=== PATIENT | male | born 1980 | race Two or more races ===

== ENCOUNTER 2020-10-21 03:55 | Emergency (ER) | payer SELFPAY ==
[2020-10-21] MEDS ORDERED: Albuterol 8 GM Inhaler INH ONE (04:15)
--- NOTE | 2020-10-21 04:15 | EDM.PDOC ---
ED HPI GENERAL MEDICAL PROBLEM - General Chief Complaint: Respiratory Problem Stated Complaint: COVID POSITIVE- CAN'T BREATHE Time Seen by Provider: 10/21/20 04:15 - History of Present Illness INITIAL COMMENTS - FREE TEXT/NARRATIVE: History of present illness: [] Patient has begun to have cough and difficulty breathing with discomfort when he tries to breathe starting 10 days ago. Starting on the he is taking clarithromycin, benzonatate and budesonide. Girlfriend tested positive for COVID-19 3 weeks ago. She is over her symptoms now. Feels short of breath and cannot tolerate activity. He is coughing deal. Review of systems: As per history of present illness and below otherwise all systems reviewed and negative. Past medical history: As per history of present illness and as reviewed below otherwise noncont ributory. Surgical history: As per history of present illness and as reviewed below otherwise noncontributory. Social history: No reported history of drug or alcohol abuse. Family history: As per history of present illness and as reviewed below otherwise noncontributory. Physical exam: Constitutional - well developed, well-nourished and in no acute distress HEENT - normocephalic, no evidence of trauma - external nose and mouth normal - no mass in neck and no JVD - mucosae moist EYES - full EOM, PERRL, no icterus - no evidence of inflammation, injection, or drainage Respiratory - no respiratory distress, equal bilateral expansion, lungs diminished to auscultation and otherwise no abnormal lung sounds Cardiovascular - Regular Rhythm with S1 and S2 appreciated and no murmur, gallop or rub. GI - abdomen soft without distension or organomegaly - normal bowel sounds - no guard or rebound Musculoskeletal no gross deformity of long bones or joints - no tenderness, swelling or edema Neurologic - Alert and oriented times four - CN II-XII grossly intact - motor sensory and coordination symmetrically normal Psychiatric - appropriate mood and affect with normal thought content Hematologic - No petechiae or purpura - mucosa appropriate color and sclera not pale - normal nail bed color and refill Integument - no rash or evidence of trauma - normal turgor Diagnostics: [] Therapeutics: [] Impression: [] Plan: [] Definitive disposition and diagnosis as appropriate pending reevaluation and review of above. - Related Data Allergies Allergy/AdvReac Type Severity Reaction Status Date / Time No Known Allergies Allergy Verified 10/21/20 04:09 Home Meds: Home Meds Benzonatate 200 mg PO DAILY 10/21/20 [History] Budesonide [Pulmicort] 1 ampule INH Q6HR PRN 10/21/20 [History] Clarithromycin 500 mg PO BID 10/21/20 [History] Ondansetron [Zofran ODT] 4 mg PO Q6H PRN #12 tab.dis 10/21/20 [Rx] ED ROS GENERAL - Review of Systems Review Of Systems: Comprehensive ROS is negative, except as noted in HPI. ED EXAM, GENERAL - Physical Exam Exam: See Below Free Text/Narrative:: My physical exam is in the HPI Course - Vital Signs Text/Narrative:: Patient is adequate sat. He feels somewhat better after albuterol inhalation. He still feels nauseated. Zofran ordered. Last Recorded V/S: Last Vital Signs Temp 37.2 C 10/21/20 04:12 Pulse 92 10/21/20 04:54 Resp 18 10/21/20 04:54 BP 110/79 10/21/20 04:54 Pulse Ox 97 10/21/20 04:54 - Orders/Labs/Meds Orders: Active Orders 24 hr Category Date Time Status RT Post Treatment Assessment [RC] Click to Edit Care 10/21/20 04:19 Active RT Pre-Treatment Assessment [RC] Click to Edit Care 10/21/20 04:19 Active Ondansetron [Zofran ODT] Med 10/21/20 05:20 Once 4 mg PO ONETIME ONE Medication Orders Ondansetron HCl (Ondansetron 4 Mg Tab.Dis) 4 mg PO ONETIME ONE Stop: 10/21/20 05:21 Labs: Laboratory Tests 10/21/20 Range/Units 04:20 SARS-CoV-2 RNA (SOLITARIO) POSITIVE H (NEGATIVE) Meds: Medications Generic Name Dose Route Start Last Admin Trade Name Freq PRN Reason Stop Dose Admin Ondansetron HCl 4 mg 10/21/20 05:20 Ondansetron 4 Mg Tab.Dis PO 10/21/20 05:21 ONETIME ONE Discontinued Medications Generic Name Dose Route Start Last Admin Trade Name Freq PRN Reason Stop Dose Admin Albuterol Confirm 10/21/20 04:15 03/19/21 04:19 Albuterol 8 Gm Inhaler Administered 10/21/20 04:16 Not Given Dose 8 gm INH .STK-MED ONE Albuterol 8 gm 10/21/20 04:18 10/21/20 04:23 Albuterol Hfa 18 Gm Inhaler INH 10/21/20 04:19 2 inhaler NOW STA Administration Departure - Departure Time of Disposition: 05:22 Disposition: Home, Self-Care 01 Condition: Good Clinical Impression: Pneumonia due to COVID-19 virus - Discharge Information Prescriptions: Ondansetron [Zofran ODT] 4 mg PO Q6H PRN #12 tab.dis PRN Reason: Nausea/Vomiting Instructions: COVID-19 Referrals: PCP,None [Primary Care Provider] - Forms: ED Department Discharge Additional Instructions: Stop clarithromycin while you are taking the nausea medicine because the combined 2 can cause the dangers situation with electrical conduction in your heart. [facility] - Primary Care [address] [place] [address] [place] [address] The following information is given to patients seen in the emergency department who are being discharged to home. This information is to outline your options for follow-up care. We provide all patients seen in our emergency department with a follow-up referral. The need for follow-up, as well as the timing and circumstances, are variable depending upon the specifics of your emergency department visit. If you don't have a primary care physician on staff, we will provide you with a referral. We always advise you to contact your personal physician following an emergency department visit to inform them of the circumstance of the visit and for follow-up with them and/or the need for any referrals to a consulting specialist. The emergency department will also refer you to a specialist when appropriate. T his referral assures that you have the opportunity for follow-up care with a specialist. All of these measure are taken in an effort to provide you with optimal care, which includes your follow-up. Under all circumstances we always encourage you to contact your private physician who remains a resource for coordinating your care. When calling for follow-up care, please make the office aware that this follow-up is from your recent emergency room visit. If for any reason you are refused follow-up, please contact the [facility] Emergency Department at and asked to speak to the emergency department charge nurse. Sepsis Event Note (ED) - Focused Exam Vital Signs: Vital Signs Temp Pulse Resp BP Pulse Ox 10/21/20 04:54 92 18 110/79 97 10/21/20 04:12 37.2 C 103 H 18 114/74 97 - My Orders Last 24 Hours: My Active Orders 10/21/20 04:19 RT Post Treatment Assessment [RC] Click to Edit RT Pre-Treatment Assessment [RC] Click to Edit 10/21/20 05:20 Ondansetron [Zofran ODT] 4 mg PO ONETIME ONE - Assessment/Plan Last 24 Hours: My Active Orders 10/21/20 04:19 RT Post Treatment Assessment [RC] Click to Edit RT Pre-Treatment Assessment [RC] Click to Edit 10/21/20 05:20 Ondansetron [Zofran ODT] 4 mg PO ONETIME ONE
[2020-10-21] MEDS ORDERED: Albuterol HFA 18 Gm Inhaler INH STA (04:18)
--- NOTE | 2020-10-21 05:17 | CR ---
Indication: Cough and dyspnea Technique: Chest 1 view Comparison: None Findings/Impression: Cardiovascular and mediastinum: Heart size and vasculature are normal in caliber and appearance. Mediastinum is within normal limits. Lungs and pleural space: An expiratory study. Subtle, ill-defined interstitial opacities in the lower lungs and right midline, partially related to subsegmental atelectasis, however suggestive of interstitial infiltrates. Central basilar bronchial wall thickening noted. Correlate clinically, including for viral pneumonia and bronchitis. No pleural effusions. No pneumothorax seen. Bones and soft tissues: No significant findings. Dictated by Poncho Escobedo MD @ Oct 21 2020 5:12AM Signed by Dr. Poncho Escobedo @ Oct 21 2020 5:15AM
[2020-10-21] MEDS ORDERED: Ondansetron 4 MG Tab.DIS PO ONE (05:20)
== END 2020-10-21 05:46 | disposition home or self-care (01) ==
LOC: MW.ED 03:55
DX: U07.1 COVID-19 (principal); J12.82 Pneumonia due to coronavirus disease 2019
CPT/HCPCS: 71045; 87635; 99285; A9270; 99283; J3535-GY; U0002

== ENCOUNTER 2020-10-23 05:46 | Inpatient (IN) | payer SELFPAY ==
[2020-10-23] MEDS ORDERED: Sodium Chloride 0.9% 10 ML Syringe FLUSH PRN (06:16)
[2020-10-23] MEDS ORDERED: REMDESIVIR 200 MG in Sodium Chloride 0.9% 250 ML IV ONE (06:18)
--- NOTE | 2020-10-23 06:23 | EDM.PDOC ---
ED HPI GENERAL MEDICAL PROBLEM - General Chief Complaint: Respiratory Problem Stated Complaint: SHORTNESS OF BREATH, COVID POSITIVE Time Seen by Provider: 10/23/20 05:55 - History of Present Illness INITIAL COMMENTS - FREE TEXT/NARRATIVE: History of present illness: [] Patient is in reasonably good health. 12 days ago he began to have trouble breathing. Days ago he was started on benzonatate budesonide + and clarithromycin. 2 days ago he came here and was seen and found to be COVID-19 positive. He was placed on an inhaler with albuterol and an extension chamber as well as oral steroids. He was discharged in satisfactory condition but returned with more shortness of breath. Since he was tested positive for Covid he has been trying to lay prone and that does not seem to help. His inhaler does not seem to help. The health department nurse called him and told him he was eligible for remdesivir. He presents now short of breath and requesting assistance. Review of systems: As per history of present illness and below otherwise all systems reviewed and negative. Past medical history: As per history of present illness and as reviewed below otherwise noncontributory. Surgical history: As per history of present illness and as reviewed below otherwise noncontributory. Social history: No reported history of drug or alcohol abuse. Family history: As per history of present illness and as reviewed below otherwise noncontributory. Physical exam: Constitutional - well developed, well-nourished and in no acute distress HEENT - normocephalic, no evidence of trauma - external nose and mouth normal - no mass in neck and no JVD - mucosae moist EYES - full EOM, PERRL, no icterus - no evidence of inflammation, injection, or drainage Respiratory -moderate respiratory distress, equal bilateral expansion, lungs clear to auscultation and no abnormal lung sounds in oxygen saturation 85% which corrects between 90 and 93 on 10 L of oxygen. Cardiovascular - Regular Rhythm with S1 and S2 appreciated and no murmur, gallop or rub. GI - abdomen soft without distension or organomegaly - normal bowel sounds - no guard or rebound Musculoskeletal no gross deformity of long bones or joints - no tenderness, s welling or edema Neurologic - Alert and oriented times four - CN II-XII grossly intact - motor sensory and coordination symmetrically normal Psychiatric - appropriate mood and affect with normal thought content Hematologic - No petechiae or purpura - mucosa appropriate color and sclera not pale - normal nail bed color and refill Integument - no rash or evidence of trauma - normal turgor Diagnostics: [] Therapeutics: [] Impression: [] Plan: [] Definitive disposition and diagnosis as appropriate pending reevaluation and review of above. Bilateral Pain Score (Numeric/FACES): 10 - Related Data Allergies Allergy/AdvReac Type Severity Reaction Status Date / Time No Known Allergies Allergy Verified 10/23/20 05:52 Home Meds: Home Meds Benzonatate 200 mg PO DAILY 10/21/20 [History] Budesonide [Pulmicort] 1 ampule INH Q6HR PRN 10/21/20 [History] Ondansetron [Zofran ODT] 4 mg PO Q6H PRN #12 tab.dis 10/21/20 [Rx] Past Medical History - Past Health History Medical/Surgical History: Denies Medical/Surgical History Social & Family History - Family History Family Medical History: No Pertinent Family History - Caffeine Use Caffeine Use: Reports: Coffee - Recreational Drug Use Recreational Drug Use: No ED ROS GENERAL - Review of Systems Review Of Systems: Comprehensive ROS is negative, except as noted in HPI. ED EXAM, GENERAL - Physical Exam Exam: See Below Free Text/Narrative:: My physical exam is in the HPI Course - Vital Signs Text/Narrative:: Discussed with Dr. White and he wanted steroids and remdesivir initiated and patient admitted Last Recorded V/S: Last Vital Signs Temp 35.7 C L 10/24/20 04:10 Pulse 83 10/24/20 04:10 Resp 20 10/24/20 04:10 BP 93/66 10/24/20 04:10 Pulse Ox 94 L 10/24/20 04:10 - Orders/Labs/Meds Orders: Active Orders 24 hr Category Date Time Status COMPREHENSIVE METABOLIC PN,CMP [CHEM] DAILY Lab 10/24/20 06:30 Ordered COMPREHENSIVE METABOLIC PN,CMP [CHEM] DAILY Lab 10/25/20 06:30 Ordered COMPREHENSIVE METABOLIC PN,CMP [CHEM] DAILY Lab 10/26/20 06:30 Ordered COMPREHENSIVE METABOLIC PN,CMP [CHEM] DAILY Lab 10/27/20 06:30 Ordered Sodium Chloride 0.9% [Saline Flush] Med 10/23/20 06:16 Active 10 ml FLUSH ASDIRECTED PRN Sodium Chloride 0.9% [Saline Flush] Med 10/23/20 06:16 Active 2.5 ml FLUSH ASDIRECTED PRN Saline Lock Insert [OM.PC] Stat Oth 10/23/20 06:16 Ordered Medication Orders Acetaminophen (Acetaminophen 325 Mg Tab) 650 mg PO Q4H PRN PRN Reason: Pain (Mild 1-3)/fever Last Admin: 10/23/20 10:12 Dose: 650 mg Documented by: VINICIO Benzonatate (Benzonatate 100 Mg Cap) 100 mg PO Q6HR PRN PRN Reason: Cough Last Admin: 10/23/20 18:10 Dose: 100 mg Documented by: VINICIO Dexamethasone (Dexamethasone 4 Mg Tab) 6 mg PO DAILY [facility] Enoxaparin Sodium (Enoxaparin 40 Mg/0.4 Ml Syringe) 40 mg SUBCUT Q24H [facility] Last Admin: 10/23/20 11:54 Dose: 40 mg Documented by: VINICIO Remdesivir 100 mg/ Sodium (Chloride) 100 mls @ 100 mls/hr IV Q24H [facility] Stop: 10/27/20 06:59 Ibuprofen (Ibuprofen 200 Mg Tab) 200 mg PO Q6H PRN PRN Reason: Pain (mild 1-3) Morphine Sulfate (Morphine 2 Mg/Ml Syringe) 2 mg IVPUSH Q4H PRN PRN Reason: Pain Ondansetron HCl (Ondansetron 4 Mg/2 Ml Sdv) 4 mg IVPUSH Q4H PRN PRN Reason: Nausea Sodium Chloride (Sodium Chloride 0.9% 10 Ml Syringe) 10 ml FLUSH ASDIRECTED PRN PRN Reason: Keep Vein Open Sodium Chloride (Sodium Chloride 0.9% 2.5 Ml Syringe) 2.5 ml FLUSH ASDIRECTED PRN PRN Reason: Keep Vein Open Meds: Medications Generic Name Dose Route Start Last Admin Trade Name Freq PRN Reason Stop Dose Admin Acetaminophen 650 mg 10/23/20 09:41 10/23/20 10:12 Acetaminophen 325 Mg Tab PO 650 mg Q4H PRN Administration Pain (Mild 1-3)/fever Benzonatate 100 mg 10/23/20 17:51 10/23/20 18:10 Benzonatate 100 Mg Cap PO 100 mg Q6HR PRN Administration Cough Dexamethasone 6 mg 10/24/20 09:00 Dexamethasone 4 Mg Tab PO DAILY MICKI Enoxaparin Sodium 40 mg 10/23/20 12:00 10/23/20 11:54 Enoxaparin 40 Mg/0.4 Ml Syringe SUBCUT 40 mg Q24H MICKI Administration Remdesivir 100 mg/ Sodium 100 mls @ 100 mls/hr 10/24/20 06:00 Chloride IV 10/27/20 06:59 Q24H MICKI Ibuprofen 200 mg 10/23/20 09:41 Ibuprofen 200 Mg Tab PO Q6H PRN Pain (mild 1-3) Morphine Sulfate 2 mg 10/23/20 21:10 Morphine 2 Mg/Ml Syringe IVPUSH Q4H PRN Pain Ondansetron HCl 4 mg 10/23/20 09:41 Ondansetron 4 Mg/2 Ml Sdv IVPUSH Q4H PRN Nausea Sodium Chloride 10 ml 10/23/20 06:16 Sodium Chloride 0.9% 10 Ml Syringe FLUSH ASDIRECTED PRN Keep Vein Open Sodium Chloride 2.5 ml 10/23/20 06:16 Sodium Chloride 0.9% 2.5 Ml Syringe FLUSH ASDIRECTED PRN Keep Vein Open Discontinued Medications Generic Name Dose Route Start Last Admin Trade Name Freq PRN Reason Stop Dose Admin Dexamethasone 10 mg 10/23/20 06:26 10/23/20 06:51 Dexamethasone 10 Mg/Ml Sdv IVPUSH 10/23/20 06:27 10 mg ONETIME ONE Administration Remdesivir 200 mg/ Sodium 250 mls @ 250 mls/hr 10/23/20 06:18 10/23/20 08:03 Chloride IV 10/23/20 06:19 250 mls/hr ONETIME ONE Administration Iopamidol 100 ml 10/23/20 10:28 10/23/20 10:29 Iopamidol 755 Mg/Ml 500 Ml Multipack Bottle IVPUSH 10/23/20 10:29 100 ml ONETIME ONE Administration Morphine Sulfate Confirm 10/23/20 21:17 10/24/20 02:56 Morphine 2 Mg/Ml Syringe Administered 10/23/20 21:18 Not Given Dose 2 mg .ROUTE .STK-MED ONE Ondansetron HCl 4 mg 10/23/20 06:55 10/23/20 07:04 Ondansetron 4 Mg/2 Ml Sdv IVPUSH 10/23/20 06:56 4 mg ONETIME ONE Administration Departure - Departure Time of Disposition: 06:26 Disposition: Admitted As Inpatient 65 Condition: Fair Clinical Impression: Hypoxia, COVID-19, Bilateral pneumonia - Discharge Information Sepsis Event Note (ED) - Evaluation Sepsis Screening Result: No Definite Risk - My Orders Last 24 Hours: My Active Orders 10/23/20 06:16 Sodium Chloride 0.9% [Saline Flush] 10 ml FLUSH ASDIRECTED PRN Sodium Chloride 0.9% [Saline Flush] 2.5 ml FLUSH ASDIRECTED PRN Saline Lock Insert [OM.PC] Stat 10/24/20 06:30 COMPREHENSIVE METABOLIC PN,CMP [CHEM] DAILY 10/25/20 06:30 COMPREHENSIVE METABOLIC PN,CMP [CHEM] DAILY 10/26/20 06:30 COMPREHENSIVE METABOLIC PN,CMP [CHEM] DAILY 10/27/20 06:30 COMPREHENSIVE METABOLIC PN,CMP [CHEM] DAILY - Assessment/Plan Last 24 Hours: My Active Orders 10/23/20 06:16 Sodium Chloride 0.9% [Saline Flush] 10 ml FLUSH ASDIRECTED PRN Sodium Chloride 0.9% [Saline Flush] 2.5 ml FLUSH ASDIRECTED PRN Saline Lock Insert [OM.PC] Stat 10/24/20 06:30 COMPREHENSIVE METABOLIC PN,CMP [CHEM] DAILY 10/25/20 06:30 COMPREHENSIVE METABOLIC PN,CMP [CHEM] DAILY 10/26/20 06:30 COMPREHENSIVE METABOLIC PN,CMP [CHEM] DAILY 10/27/20 06:30 COMPREHENSIVE METABOLIC PN,CMP [CHEM] DAILY
[2020-10-23] MEDS ORDERED: Dexamethasone 10 MG/ML SDV IVPUSH ONE (06:26)
[2020-10-23] MEDS ORDERED: Ondansetron 4 MG/2 ML SDV IVPUSH ONE (06:55)
[2020-10-23 07:18] LABS: BLOOD UREA NITROGEN,BUN 11 mg/dL (7.0-18.0); CARBON DIOXIDE,CO2 26.2 mmol/L (21.0-32.0); CHLORIDE,CL 94 mmol/L (98-107); GLUCOSE RANDOM 120 mg/dL (74-106); POTASSIUM,K 3.8 mmol/L (3.5-5.1); SODIUM,NA 130 mmol/L (136-148)
--- NOTE | 2020-10-23 07:43 | PCM.HP.2 ---
H&P History of Present Illness - General Date of Service: 10/23/20 Admit Problem/Dx: Admission Diagnosis/Problem Admission Diagnosis/Problem Hypoxia - History of Present Illness Initial Comments - Free Text/Narative: 40 yo male who presents to the ED due to complaints of shortness of breath, cough and fevers for two weeks. PAtient reports he tested positive for COVID on October 10. He has been on clarithromycin and inhalers but reports his breathing has worsened. He was seen two days ago in the ER and discharged home. This time he was noted to be hypoxic satting 85% on RA and so was admitted. Bilateral Pain Score (Numeric/FACES): 10 - Related Data Allergies/Adverse Reactions: Allergies Allergy/AdvReac Type Severity Reaction Status Date / Time No Known Allergies Allergy Verified 10/23/20 05:52 Home Medications: Home Meds Benzonatate 200 mg PO DAILY 10/21/20 [History] Budesonide [Pulmicort] 1 ampule INH Q6HR PRN 10/21/20 [History] Ondansetron [Zofran ODT] 4 mg PO Q6H PRN #12 tab.dis 10/21/20 [Rx] Past Medical History - Past Health History Medical/Surgical History: Denies Medical/Surgical History Social & Family History - Family History Family Medical History: No Pertinent Family History - Caffeine Use Caffeine Use: Reports: Coffee - Recreational Drug Use Recreational Drug Use: No H&P Review of Systems - Review of Systems: Review Of Systems: Comprehensive ROS is negative, except as noted in HPI. Exam - Exam Exam: See Below - Vital Signs Vital Signs: Last Vital Signs Temp 36.9 C 10/23/20 05:54 Pulse 135 H 10/23/20 06:55 Resp 18 10/23/20 06:55 BP 101/67 10/23/20 06:55 Pulse Ox 92 L 10/23/20 06:55 Weight: 98.883 kg - Exam General: Alert, Oriented HEENT: Mucosa Moist & [place] Lungs: Rhonchi Cardiovascular: Regular Rate, Regular Rhythm GI/Abdominal Exam: Normal Bowel Sounds, Soft, Non-Tender Extremities: Non-Tender, No Pedal Edema Skin: Warm, Dry, Intact Neurological: Cranial Nerves Intact. No: Focal Deficit - Patient Data Lab Results Last 24 hrs: Laboratory Results - last 24 hr 10/23/20 10/23/20 Range/Units 06:47 06:47 WBC 10.85 (4.0-11.0) K/uL RBC 5.25 (4.50-5.90) M/uL Hgb 15.7 (13.0-17.0) g/dL Hct 45.1 (38.0-50.0) % MCV 85.9 (80.0-98.0) fL MCH 29.9 (27.0-32.0) pg MCHC 34.8 (31.0-37.0) g/dL RDW Std Deviation 39.1 (28.0-62.0) fl RDW Coeff of Carolyn 12 (11.0-15.0) % Plt Count 187 (150-400) K/uL MPV 10.30 (7.40-12.00) fL Add Manual Diff YES Neutrophils % (Manual) 97 H (48.0-80.0) % Band Neutrophils % 1 % Lymphocytes % (Manual) 1 L (16.0-40.0) % Monocytes % (Manual) 1 (0.0-15.0) % Nucleated RBC % 0.0 /100WBC Absolute Seg Neuts 10.5 H (1.4-5.7) Band Neutrophils # 0.1 Lymphocytes # (Manual) 0.1 L (0.6-2.4) Monocytes # (Manual) 0.1 (0.0-0.8) Nucleated RBCs # 0 K/uL Sodium 130 L (136-148) mmol/L Potassium 3.8 (3.5-5.1) mmol/L Chloride 94 L (98-107) mmol/L Carbon Dioxide 26.2 (21.0-32.0) mmol/L BUN 11 (7.0-18.0) mg/dL Creatinine 1.3 (0.8-1.3) mg/dL Est Cr Clr Drug Dosing 82.08 mL/min Estimated GFR (MDRD) > 60.0 ml/min Glucose 120 H (74-106) mg/dL Calcium 8.4 L (8.5-10.1) mg/dL Total Bilirubin 0.5 (0.2-1.0) mg/dL Direct Bilirubin 0.20 (0.0-0.5) mg/dL AST 60 H (15-37) IU/L ALT 43 (14-63) IU/L Alkaline Phosphatase 52 (46-116) U/L Total Protein 7.4 (6.4-8.2) g/dL Albumin 3.2 L (3.4-5.0) g/dL Globulin 4.2 H (2.6-4.0) g/dL Albumin/Globulin Ratio 0.8 L (0.9-1.6) Result Diagrams: 10/25/20 05:28 10/25/20 05:28 Sepsis Event Note - Evaluation Sepsis Screening Result: No Definite Risk - Focused Exam Vital Signs: Vital Signs Temp Pulse Resp BP Pulse Ox 10/23/20 06:55 135 H 18 101/67 92 L 10/23/20 05:54 36.9 C 161 H 22 H 104/57 L 85 L Problem List Initiated/Reviewed/Updated: Yes Orders Last 24hrs: Active Orders 24 hr Category Date Time Status Admission Status [Patient Status] [ADT] Stat ADT 10/23/20 06:21 Active BILIRUBIN DIRECT [CHEM] DAILY Lab 10/24/20 06:30 Ordered BILIRUBIN DIRECT [CHEM] DAILY Lab 10/25/20 06:30 Ordered BILIRUBIN DIRECT [CHEM] DAILY Lab 10/26/20 06:30 Ordered BILIRUBIN DIRECT [CHEM] DAILY Lab 10/27/20 06:30 Ordered COMPREHENSIVE METABOLIC PN,CMP [CHEM] DAILY Lab 10/24/20 06:30 Ordered COMPREHENSIVE METABOLIC PN,CMP [CHEM] DAILY Lab 10/25/20 06:30 Ordered COMPREHENSIVE METABOLIC PN,CMP [CHEM] DAILY Lab 10/26/20 06:30 Ordered COMPREHENSIVE METABOLIC PN,CMP [CHEM] DAILY Lab 10/27/20 06:30 Ordered Sodium Chloride 0.9% [Saline Flush] Med 10/23/20 06:16 Active 10 ml FLUSH ASDIRECTED PRN Sodium Chloride 0.9% [Saline Flush] Med 10/23/20 06:16 Active 2.5 ml FLUSH ASDIRECTED PRN Saline Lock Insert [OM.PC] Stat Oth 10/23/20 06:16 Ordered Medication Orders Sodium Chloride (Sodium Chloride 0.9% 10 Ml Syringe) 10 ml FLUSH ASDIRECTED PRN PRN Reason: Keep Vein Open Sodium Chloride (Sodium Chloride 0.9% 2.5 Ml Syringe) 2.5 ml FLUSH ASDIRECTED PRN PRN Reason: Keep Vein Open Assessment/Plan Comment:: 40 yo male admitted for acute hypoxic respiratory failure from COVID pneumonia. Patient is on 5 L NC and will wean oxygen as tolerated. We will treat with remdesivir, and dexamethasone. CT chest has been ordered. Patient is to be on lovenox for dvt prophylaxis
[2020-10-23] MEDS ORDERED: Ondansetron 4 MG/2 ML SDV IVPUSH PRN (09:41)
[2020-10-23] MEDS: Acetaminophen 325 MG Tab PO PRN (10:12)
[2020-10-23] MEDS ORDERED: Iopamidol 755 MG/ML 500 ML Multipack Bottle IVPUSH ONE (10:28)
--- NOTE | 2020-10-23 10:47 | CT ---
Indication: Severe hypoxia. Patient currently has COVID. Technique: Contrast-enhanced CT PE with 100 mL Isovue 370 Comparison: No comparison Findings: Normal caliber thoracic aorta. Respiratory motion limits evaluation of peripheral pulmonary emboli. No central or proximal pulmonary emboli seen. Heart size normal. No pericardial effusion. No mediastinal or hilar adenopathy. No pneumothorax. Diffuse patchy ground-glass opacities bilaterally consistent with patient`s known COVID infection. Fatty liver No suspicious bony lesions. Impression: 1. Respiratory motion limits evaluation of distal pulmonary emboli. No central or proximal pulmonary emboli seen. 2. Diffuse patchy ground-glass opacities consistent with patient`s known COVID infection. Please note that all CT scans at this facility use dose modulation, iterative reconstruction, and/or weight-based dosing when appropriate to reduce radiation dose to as low as reasonably achievable. Dictated by Cristal Kennedy MD @ Oct 23 2020 10:40AM Signed by Dr. Cristal Kennedy @ Oct 23 2020 10:45AM
[2020-10-23] MEDS: Enoxaparin 40 MG/0.4 ML Syringe SUBCUT SCH (11:54)
[2020-10-23] MEDS: Benzonatate 100 MG Cap PO PRN (18:10)
[2020-10-23] MEDS ORDERED: Morphine 2 MG/ML SYRINGE IVPUSH PRN (21:10)
[2020-10-23] MEDS ORDERED: Morphine 2 MG/ML SYRINGE ONE (21:17)
[2020-10-24] MEDS: REMDESIVIR 100 MG in Sodium Chloride 0.9% 100 ML IV SCH (05:41)
[2020-10-24] MEDS: Sodium Chloride 0.9% 2.5 ML Syringe FLUSH PRN (06:48)
[2020-10-24 07:17] LABS: CARBON DIOXIDE,CO2 29.9 mmol/L (21.0-32.0); POTASSIUM,K 4.1 mmol/L (3.5-5.1)
[2020-10-24] MEDS: Dexamethasone 4 MG Tab PO SCH (08:50)
[2020-10-24] MEDS: Codeine/guaiFENesin 10-100 MG/5 ML Syrup 5 ML Cup PO PRN ×3 (09:46→21:34)
[2020-10-24] MEDS: Levofloxacin/Dextrose 5%-Water 750 MG in Premix Bag 1 BAG IV SCH (09:49)
[2020-10-24] MEDS: Benzonatate 100 MG Cap PO PRN (12:41)
[2020-10-24] MEDS: Enoxaparin 40 MG/0.4 ML Syringe SUBCUT SCH (12:42)
--- NOTE | 2020-10-24 15:38 | PCM.PN ---
- General Info Date of Service: 10/24/20 Subjective Update: Patient states chronic cough throughout the day. Also states decreased appetite. Patient denies fever, chills, nausea, vomiting, abdominal pain, chest pain, shortness of breath. - Review of Systems General: Denies: Fever, Chills Pulmonary: Reports: Cough. Denies: Shortness of Breath Cardiovascular: Denies: Chest Pain, Lightheadedness Gastrointestinal: Denies: Abdominal Pain, Nausea, Vomiting Neurological: Denies: Confusion, Dizziness Psychiatric: Denies: Confusion - Patient Data Vitals - Most Recent: Last Vital Signs Temp 96.5 F L 10/24/20 12:00 Pulse 101 H 10/24/20 14:08 Resp 20 10/24/20 12:00 BP 99/69 10/24/20 12:00 Pulse Ox 92 L 10/24/20 14:08 Weight - Most Recent: 212 lb 1.355 oz I&O - Last 24 Hours: Intake & Output 10/24/20 10/24/20 10/24/20 06:59 14:59 22:59 Intake Total 1000 150 Balance 1000 150 Lab Results Last 24 Hours: Laboratory Results - last 24 hr 10/24/20 10/24/20 Range/Units 06:35 06:35 WBC 10.54 (4.0-11.0) K/uL RBC 5.37 (4.50-5.90) M/uL Hgb 16.0 (13.0-17.0) g/dL Hct 46.8 (38.0-50.0) % MCV 87.2 (80.0-98.0) fL MCH 29.8 (27.0-32.0) pg MCHC 34.2 (31.0-37.0) g/dL RDW Std Deviation 39.9 (28.0-62.0) fl RDW Coeff of Carolyn 13 (11.0-15.0) % Plt Count 242 (150-400) K/uL MPV 10.30 (7.40-12.00) fL Neut % (Auto) 86.8 H (48.0-80.0) % Lymph % (Auto) 6.5 L (16.0-40.0) % [place] % (Auto) 6.6 (0.0-15.0) % Eos % (Auto) 0.0 (0.0-7.0) % Baso % (Auto) 0.1 (0.0-1.5) % Neut # (Auto) 9.1 H (1.4-5.7) K/uL Lymph # (Auto) 0.7 (0.6-2.4) K/uL [place] # (Auto) 0.7 (0.0-0.8) K/uL Eos # (Auto) 0.0 (0.0-0.7) K/uL Baso # (Auto) 0.0 (0.0-0.1) K/uL Nucleated RBC % 0.0 /100WBC Nucleated RBCs # 0 K/uL Sodium 135 L (136-148) mmol/L Potassium 4.1 (3.5-5.1) mmol/L Chloride 97 L (98-107) mmol/L Carbon Dioxide 29.9 (21.0-32.0) mmol/L BUN 23 H (7.0-18.0) mg/dL Creatinine 1.5 H (0.8-1.3) mg/dL Est Cr Clr Drug Dosing 71.13 mL/min Estimated GFR (MDRD) 51.6 ml/min Glucose 138 H (74-106) mg/dL Calcium 8.2 L (8.5-10.1) mg/dL Total Bilirubin 0.5 (0.2-1.0) mg/dL AST 51 H (15-37) IU/L ALT 42 (14-63) IU/L Alkaline Phosphatase 46 (46-116) U/L Total Protein 6.7 (6.4-8.2) g/dL Albumin 2.8 L (3.4-5.0) g/dL Globulin 3.9 (2.6-4.0) g/dL Albumin/Globulin Ratio 0.7 L (0.9-1.6) Med Orders - Current: Current Medications Acetaminophen (Acetaminophen 325 Mg Tab) 650 mg PO Q4H PRN PRN Reason: Pain (Mild 1-3)/fever Last Admin: 10/23/20 10:12 Dose: 650 mg Documented by: Benzonatate (Benzonatate 100 Mg Cap) 100 mg PO Q6HR PRN PRN Reason: Cough Last Admin: 10/24/20 12:41 Dose: 100 mg Documented by: Dexamethasone (Dexamethasone 4 Mg Tab) 6 mg PO DAILY [facility] Last Admin: 10/24/20 08:50 Dose: 6 mg Documented by: Enoxaparin Sodium (Enoxaparin 40 Mg/0.4 Ml Syringe) 40 mg SUBCUT Q24H [facility] Last Admin: 10/24/20 12:42 Dose: 40 mg Documented by: Guaifenesin/Codeine Phosphate (Codeine/Guaifenesin 10-100 Mg/5 Ml Syrup 5 Ml Cup) 10 ml PO Q4H PRN PRN Reason: Cough Last Admin: 10/24/20 13:53 Dose: 10 ml Documented by: Remdesivir 100 mg/ Sodium (Chloride) 100 mls @ 100 mls/hr IV Q24H [facility] Stop: 10/27/20 06:59 Last Admin: 10/24/20 05:41 Dose: 100 mls/hr Documented by: Levofloxacin/Dextrose 750 mg/ (Premix) 150 mls @ 100 mls/hr IV Q24H [facility] Last Admin: 10/24/20 09:49 Dose: 100 mls/hr Documented by: Ibuprofen (Ibuprofen 200 Mg Tab) 200 mg PO Q6H PRN PRN Reason: Pain (mild 1-3) Morphine Sulfate (Morphine 2 Mg/Ml Syringe) 2 mg IVPUSH Q4H PRN PRN Reason: Pain Ondansetron HCl (Ondansetron 4 Mg/2 Ml Sdv) 4 mg IVPUSH Q4H PRN PRN Reason: Nausea Sodium Chloride (Sodium Chloride 0.9% 10 Ml Syringe) 10 ml FLUSH ASDIRECTED PRN PRN Reason: Keep Vein Open Sodium Chloride (Sodium Chloride 0.9% 2.5 Ml Syringe) 2.5 ml FLUSH ASDIRECTED PRN PRN Reason: Keep Vein Open Last Admin: 10/24/20 06:48 Dose: 2.5 ml Documented by: Discontinued Medications Dexamethasone (Dexamethasone 10 Mg/Ml Sdv) 10 mg IVPUSH ONETIME ONE Stop: 10/23/20 06:27 Last Admin: 10/23/20 06:51 Dose: 10 mg Documented by: Remdesivir 200 mg/ Sodium (Chloride) 250 mls @ 250 mls/hr IV ONETIME ONE Stop: 10/23/20 06:19 Last Admin: 10/23/20 08:03 Dose: 250 mls/hr Documented by: Iopamidol (Iopamidol 755 Mg/Ml 500 Ml Multipack Bottle) 100 ml IVPUSH ONETIME O NE Stop: 10/23/20 10:29 Last Admin: 10/23/20 10:29 Dose: 100 ml Documented by: Morphine Sulfate (Morphine 2 Mg/Ml Syringe) Confirm Administered Dose 2 mg .ROUTE .STK-MED ONE Stop: 10/23/20 21:18 Last Admin: 10/24/20 02:56 Dose: Not Given Documented by: Ondansetron HCl (Ondansetron 4 Mg/2 Ml Sdv) 4 mg IVPUSH ONETIME ONE Stop: 10/23/20 06:56 Last Admin: 10/23/20 07:04 Dose: 4 mg Documented by: - Exam General: Alert, Oriented Lungs: Clear to Auscultation, Normal Respiratory Effort Cardiovascular: Regular Rate, Regular Rhythm GI/Abdominal Exam: Normal Bowel Sounds, Soft, Non-Tender Extremities: No Pedal Edema Psy/Mental Status: Alert - Patient Data Lab Results Last 24 hrs: Laboratory Results - last 24 hr 10/24/20 10/24/20 Range/Units 06:35 06:35 WBC 10.54 (4.0-11.0) K/uL RBC 5.37 (4.50-5.90) M/uL Hgb 16.0 (13.0-17.0) g/dL Hct 46.8 (38.0-50.0) % MCV 87.2 (80.0-98.0) fL MCH 29.8 (27.0-32.0) pg MCHC 34.2 (31.0-37.0) g/dL RDW Std Deviation 39.9 (28.0-62.0) fl RDW Coeff of Carolyn 13 (11.0-15.0) % Plt Count 242 (150-400) K/uL MPV 10.30 (7.40-12.00) fL Neut % (Auto) 86.8 H (48.0-80.0) % Lymph % (Auto) 6.5 L (16.0-40.0) % [place] % (Auto) 6.6 (0.0-15.0) % Eos % (Auto) 0.0 (0.0-7.0) % Baso % (Auto) 0.1 (0.0-1.5) % Neut # (Auto) 9.1 H (1.4-5.7) K/uL Lymph # (Auto) 0.7 (0.6-2.4) K/uL [place] # (Auto) 0.7 (0.0-0.8) K/uL Eos # (Auto) 0.0 (0.0-0.7) K/uL Baso # (Auto) 0.0 (0.0-0.1) K/uL Nucleated RBC % 0.0 /100WBC Nucleated RBCs # 0 K/uL Sodium 135 L (136-148) mmol/L Potassium 4.1 (3.5-5.1) mmol/L Chloride 97 L (98-107) mmol/L Carbon Dioxide 29.9 (21.0-32.0) mmol/L BUN 23 H (7.0-18.0) mg/dL Creatinine 1.5 H (0.8-1.3) mg/dL Est Cr Clr Drug Dosing 71.13 mL/min Estimated GFR (MDRD) 51.6 ml/min Glucose 138 H (74-106) mg/dL Calcium 8.2 L (8.5-10.1) mg/dL Total Bilirubin 0.5 (0.2-1.0) mg/dL AST 51 H (15-37) IU/L ALT 42 (14-63) IU/L Alkaline Phosphatase 46 (46-116) U/L Total Protein 6.7 (6.4-8.2) g/dL Albumin 2.8 L (3.4-5.0) g/dL Globulin 3.9 (2.6-4.0) g/dL Albumin/Globulin Ratio 0.7 L (0.9-1.6) Result Diagrams: 10/24/20 06:35 10/24/20 06:35 Sepsis Event Note - Evaluation Sepsis Screening Result: No Definite Risk - Focused Exam Vital Signs: Vital Signs Temp Pulse Resp BP Pulse Ox Pulse Ox 10/24/20 14:08 101 H 92 L 10/24/20 12:00 96.5 F L 97 20 99/69 90 L 10/24/20 09:41 93 L 10/24/20 08:49 97.9 F 74 20 102/58 L 92 L 03/22/21 04:10 96.2 F L 83 20 93/66 94 L - Problem List & Annotations (1) COVID-19 SNOMED Code(s): 824091626 Code(s): U07.1 - COVID-19 Status: Acute Current Visit: Yes (2) Hypoxia SNOMED Code(s): 567592621 Code(s): R09.02 - HYPOXEMIA Status: Acute Current Visit: Yes (3) Pneumonia due to COVID-19 virus SNOMED Code(s): 392088421789037949 Code(s): U07.1 - COVID-19; J12.82 - PNEUMONIA DUE TO CORONAVIRUS DISEASE 2019 Status: Acute Current Visit: No - Problem List Review Problem List Initiated/Reviewed/Updated: Yes - My Orders Last 24 Hours: My Active Orders 10/24/20 14:47 RT Oxygen High Humidity High Flow [RESPCARE] Routine - Plan Plan:: Acute hypoxic respiratory failure secondary to COVID pneumonia- Patient transitioned to HHF 40 fio2 65%, remdesivir, dexamethasone, Lovenox for dvt prophylaxis, Levaquin to prevent secondary bacterial infection, guaifenesine/codeine for cough,
[2020-10-24] MEDS: Albuterol/Ipratropium 4 GM Inhalation Spray INH PRN (23:11)
[2020-10-25] MEDS: Benzonatate 100 MG Cap PO PRN (01:07)
[2020-10-25] MEDS: Codeine/guaiFENesin 10-100 MG/5 ML Syrup 5 ML Cup PO PRN ×2 (03:36→21:18)
[2020-10-25] MEDS: Albuterol/Ipratropium 4 GM Inhalation Spray INH PRN ×3 (03:36→20:18)
[2020-10-25] MEDS: REMDESIVIR 100 MG in Sodium Chloride 0.9% 100 ML IV SCH (05:25)
[2020-10-25 06:04] LABS: BLOOD UREA NITROGEN,BUN 20 mg/dL (7.0-18.0); CARBON DIOXIDE,CO2 29.6 mmol/L (21.0-32.0); CHLORIDE,CL 98 mmol/L (98-107); GLUCOSE RANDOM 136 mg/dL (74-106); POTASSIUM,K 4.2 mmol/L (3.5-5.1); SODIUM,NA 137 mmol/L (136-148)
[2020-10-25] MEDS: Dexamethasone 4 MG Tab PO SCH (08:43)
[2020-10-25] MEDS ORDERED: Pantoprazole 40 MG in Sodium Chloride 0.9% 10 ML IV SCH (08:45)
[2020-10-25] MEDS: Polyethylene Glycol 3350 Powder 17 GM Packet PO SCH (09:02)
[2020-10-25] MEDS: Pantoprazole 40 MG in Sodium Chloride 0.9% 10 ML IV SCH (09:04)
[2020-10-25] MEDS: Docusate Sodium 100 MG Cap PO SCH ×2 (09:04→20:18)
[2020-10-25] MEDS: Levofloxacin/Dextrose 5%-Water 750 MG in Premix Bag 1 BAG IV SCH (09:10)
--- NOTE | 2020-10-25 11:32 | PCM.PN ---
- General Info Date of Service: 10/25/20 Subjective Update: Patient states discomfort with humidified high flow. Initially patient stated that the humidification was too warm, this morning patient also states that he can breathe easier without the HHF. Patient also states mild abdominal discomfort which he is believes is due to constipation. Patient also states intermittent hiccups. Patient denies chest pain, shortness of breath, dizziness, nausea, vomiting. - Review of Systems General: Denies: Fever, Chills Pulmonary: Denies: Shortness of Breath Cardiovascular: Denies: Chest Pain Gastrointestinal: Reports: Abdominal Pain. Denies: Nausea, Vomiting Neurological: Denies: Confusion - Patient Data Vitals - Most Recent: Last Vital Signs Temp 96.6 F L 10/25/20 10:59 Pulse 80 10/25/20 10:59 Resp 18 10/25/20 10:59 BP 131/79 10/25/20 10:59 Pulse Ox 95 10/25/20 10:59 Weight - Most Recent: 212 lb 1.355 oz I&O - Last 24 Hours: Intake & Output 10/24/20 10/25/20 10/25/20 22:59 06:59 14:59 Intake Total 1040 1500 Output Total 700 1200 Balance 340 300 Lab Results Last 24 Hours: Laboratory Results - last 24 hr 10/25/20 10/25/20 Range/Units 05:28 05:28 WBC 11.23 H (4.0-11.0) K/uL RBC 5.43 (4.50-5.90) M/uL Hgb 16.1 (13.0-17.0) g/dL Hct 47.1 (38.0-50.0) % MCV 86.7 (80.0-98.0) fL MCH 29.7 (27.0-32.0) pg MCHC 34.2 (31.0-37.0) g/dL RDW Std Deviation 39.5 (28.0-62.0) fl RDW Coeff of Carolyn 12 (11.0-15.0) % Plt Count 303 (150-400) K/uL MPV 10.40 (7.40-12.00) fL Neut % (Auto) 87.6 H (48.0-80.0) % Lymph % (Auto) 5.1 L (16.0-40.0) % [place] % (Auto) 7.2 (0.0-15.0) % Eos % (Auto) 0.0 (0.0-7.0) % Baso % (Auto) 0.1 (0.0-1.5) % Neut # (Auto) 9.8 H (1.4-5.7) K/uL Lymph # (Auto) 0.6 (0.6-2.4) K/uL [place] # (Auto) 0.8 (0.0-0.8) K/uL Eos # (Auto) 0.0 (0.0-0.7) K/uL Baso # (Auto) 0.0 (0.0-0.1) K/uL Nucleated RBC % 0.0 /100WBC Nucleated RBCs # 0 K/uL Sodium 137 (136-148) mmol/L Potassium 4.2 (3.5-5.1) mmol/L Chloride 98 (98-107) mmol/L Carbon Dioxide 29.6 (21.0-32.0) mmol/L BUN 20 H (7.0-18.0) mg/dL Creatinine 1.3 (0.8-1.3) mg/dL Est Cr Clr Drug Dosing 82.08 mL/min Estimated GFR (MDRD) > 60.0 ml/min Glucose 136 H (74-106) mg/dL Calcium 8.3 L (8.5-10.1) mg/dL Total Bilirubin 0.9 (0.2-1.0) mg/dL AST 57 H (15-37) IU/L ALT 54 (14-63) IU/L Alkaline Phosphatase 51 (46-116) U/L Total Protein 6.8 (6.4-8.2) g/dL Albumin 2.9 L (3.4-5.0) g/dL Globulin 3.9 (2.6-4.0) g/dL Albumin/Globulin Ratio 0.7 L (0.9-1.6) Med Orders - Current: Current Medications Acetaminophen (Acetaminophen 325 Mg Tab) 650 mg PO Q4H PRN PRN Reason: Pain (Mild 1-3)/fever Last Admin: 10/23/20 10:12 Dose: 650 mg Documented by: Albuterol/Ipratropium (Albuterol/Ipratropium 4 Gm Inhalation [place]) 0 gm INH Q4H PRN PRN Reason: Dyspnea Last Admin: 10/25/20 08:50 Dose: 1 puff Documented by: Benzonatate (Benzonatate 100 Mg Cap) 100 mg PO Q6HR PRN PRN Reason: Cough Last Admin: 10/25/20 01:07 Dose: 100 mg Documented by: Dexamethasone (Dexamethasone 4 Mg Tab) 6 mg PO DAILY [facility] Last Admin: 10/25/20 08:43 Dose: 6 mg Documented by: Docusate Sodium (Docusate Sodium 100 Mg Cap) 100 mg PO BID [facility] Last Admin: 10/25/20 09:04 Dose: 100 mg Documented by: Enoxaparin Sodium (Enoxaparin 40 Mg/0.4 Ml Syringe) 40 mg SUBCUT Q24H [facility] Last Admin: 10/24/20 12:42 Dose: 40 mg Documented by: Guaifenesin/Codeine Phosphate (Codeine/Guaifenesin 10-100 Mg/5 Ml Syrup 5 Ml Cup) 10 ml PO Q4H PRN PRN Reason: Cough Last Admin: 10/25/20 03:36 Dose: 10 ml Documented by: Remdesivir 100 mg/ Sodium (Chloride) 100 mls @ 100 mls/hr IV Q24H [facility] Stop: 10/27/20 06:59 Last Admin: 10/25/20 05:25 Dose: 100 mls/hr Documented by: Levofloxacin/Dextrose 750 mg/ (Premix) 150 mls @ 100 mls/hr IV Q24H [facility] Last Admin: 10/25/20 09:10 Dose: 100 mls/hr Documented by: Pantoprazole Sodium 40 mg/ (Sodium Chloride) 10 mls @ 300 mls/hr IV Q24H [facility] Last Admin: 10/25/20 09:04 Dose: 300 mls/hr Documented by: Ibuprofen (Ibuprofen 200 Mg Tab) 200 mg PO Q6H PRN PRN Reason: Pain (mild 1-3) Morphine Sulfate (Morphine 2 Mg/Ml Syringe) 2 mg IVPUSH Q4H PRN PRN Reason: Pain Ondansetron HCl (Ondansetron 4 Mg/2 Ml Sdv) 4 mg IVPUSH Q4H PRN PRN Reason: Nausea Polyethylene Glycol (Polyethylene Glycol 3350 Powder 17 Gm Packet) 17 gm PO DAILY [facility] Last Admin: 10/25/20 09:02 Dose: 17 gm Documented by: Sodium Chloride (Sodium Chloride 0.9% 10 Ml Syringe) 10 ml FLUSH ASDIRECTED PRN PRN Reason: Keep Vein Open Sodium Chloride (Sodium Chloride 0.9% 2.5 Ml Syringe) 2.5 ml FLUSH ASDIRECTED PRN PRN Reason: Keep Vein Open Last Admin: 10/24/20 06:48 Dose: 2.5 ml Documented by: Discontinued Medications Dexamethasone (Dexamethasone 10 Mg/Ml Sdv) 10 mg IVPUSH ONETIME ONE Stop: 10/23/20 06:27 Last Admin: 10/23/20 06:51 Dose: 10 mg Documented by: Remdesivir 200 mg/ Sodium (Chloride) 250 mls @ 250 mls/hr IV ONETIME ONE Stop: 10/23/20 06:19 Last Admin: 10/23/20 08:03 Dose: 250 mls/hr Documented by: Pantoprazole Sodium 40 mg/ (Sodium Chloride) 10 mls @ 300 mls/hr IV Q24H [facility] Iopamidol (Iopamidol 755 Mg/Ml 500 Ml Multipack Bottle) 100 ml IVPUSH ONETIME ONE Stop: 10/23/20 10:29 Last Admin: 10/23/20 10:29 Dose: 100 ml Documented by: Morphine Sulfate (Morphine 2 Mg/Ml Syringe) Confirm Administered Dose 2 mg .ROUTE .STK-MED ONE Stop: 10/23/20 21:18 Last Admin: 10/24/20 02:56 Dose: Not Given Documented by: Ondansetron HCl (Ondansetron 4 Mg/2 Ml Sdv) 4 mg IVPUSH ONETIME ONE Stop: 10/23/20 06:56 Last Admin: 10/23/20 07:04 Dose: 4 mg Documented by: - Exam Quality Assessment: Supplemental Oxygen (5 L via nasal cannula) General: Alert, Oriented Lungs: Clear to Auscultation, Normal Respiratory Effort Cardiovascular: Regular Rate, Regular Rhythm GI/Abdominal Exam: Normal Bowel Sounds, Soft, Non-Tender Extremities: No Pedal Edema - Patient Data Lab Results Last 24 hrs: Laboratory Results - last 24 hr 10/25/20 10/25/20 Range/Units 05:28 05:28 WBC 11.23 H (4.0-11.0) K/uL RBC 5.43 (4.50-5.90) M/uL Hgb 16.1 (13.0-17.0) g/dL Hct 47.1 (38.0-50.0) % MCV 86.7 (80.0-98.0) fL MCH 29.7 (27.0-32.0) pg MCHC 34.2 (31.0-37.0) g/dL RDW Std Deviation 39.5 (28.0-62.0) fl RDW Coeff of Carolyn 12 (11.0-15.0) % Plt Count 303 (150-400) K/uL MPV 10.40 (7.40-12.00) fL Neut % (Auto) 87.6 H (48.0-80.0) % Lymph % (Auto) 5.1 L (16.0-40.0) % [place] % (Auto) 7.2 (0.0-15.0) % Eos % (Auto) 0.0 (0.0-7.0) % Baso % (Auto) 0.1 (0.0-1.5) % Neut # (Auto) 9.8 H (1.4-5.7) K/uL Lymph # (Auto) 0.6 (0.6-2.4) K/uL [place] # (Auto) 0.8 (0.0-0.8) K/uL Eos # (Auto) 0.0 (0.0-0.7) K/uL Baso # (Auto) 0.0 (0.0-0.1) K/uL Nucleated RBC % 0.0 /100WBC Nucleated RBCs # 0 K/uL Sodium 137 (136-148) mmol/L Potassium 4.2 (3.5-5.1) mmol/L Chloride 98 (98-107) mmol/L Carbon Dioxide 29.6 (21.0-32.0) mmol/L BUN 20 H (7.0-18.0) mg/dL Creatinine 1.3 (0.8-1.3) mg/dL Est Cr Clr Drug Dosing 82.08 mL/min Estimated GFR (MDRD) > 60.0 ml/min Glucose 136 H (74-106) mg/dL Calcium 8.3 L (8.5-10.1) mg/dL Total Bilirubin 0.9 (0.2-1.0) mg/dL AST 57 H (15-37) IU/L ALT 54 (14-63) IU/L Alkaline Phosphatase 51 (46-116) U/L Total Protein 6.8 (6.4-8.2) g/dL Albumin 2.9 L (3.4-5.0) g/dL Globulin 3.9 (2.6-4.0) g/dL Albumin/Globulin Ratio 0.7 L (0.9-1.6) Result Diagrams: 10/25/20 05:28 10/25/20 05:28 Sepsis Event Note - Evaluation Sepsis Screening Result: No Definite Risk - Focused Exam Vital Signs: Vital Signs Temp Pulse Resp BP Pulse Ox Pulse Ox 10/25/20 10:59 96.6 F L 80 18 131/79 95 10/25/20 09:41 93 L 10/25/20 08:40 96.8 F L 81 20 127/72 93 L 10/25/20 03:43 96.6 F L 117 H 20 118/63 93 L - Problem List & Annotations (1) COVID-19 SNOMED Code(s): 468740568 Code(s): U07.1 - COVID-19 Status: Acute Current Visit: Yes (2) Hypoxia SNOMED Code(s): 600015645 Code(s): R09.02 - HYPOXEMIA Status: Acute Current Visit: Yes (3) Pneumonia due to COVID-19 virus SNOMED Code(s): 753650733402007047 Code(s): U07.1 - COVID-19; J12.82 - PNEUMONIA DUE TO CORONAVIRUS DISEASE 2019 Status: Acute Current Visit: No - Problem List Review Problem List Initiated/Reviewed/Updated: Yes - My Orders Last 24 Hours: My Active Orders 10/24/20 14:47 RT Oxygen High Humidity High Flow [RESPCARE] Routine 10/25/20 09:00 Docusate Sodium [Colace] 100 mg PO BID Pantoprazole [ProTONIX IV] 40 mg Sodium Chloride 0.9% [Normal Saline] 10 ml IV Q24H polyethylene glycoL 3350 [MiraLAX] 17 gm PO DAILY 10/25/20 11:23 Oxygen Therapy Adult [Oxygen Therapy, ED] [RC] ASDIRECTED - Plan Plan:: Acute hypoxic respiratory failure secondary to COVID pneumonia- Patient transitioned to 5 L via nasal cannula, oxygen saturations between 90-93%. Continue remdesivir, dexamethasone, Lovenox for dvt prophylaxis, Levaquin to prevent secondary bacterial infection, guaifenesine/codeine for cough prn MiraLAX, Colace for constipation. Protonix Q24H for suspected hiccups, possible cause could be indigestion. If hiccups do not improve will consider baclofen 10 mg tid.
[2020-10-25] MEDS: Enoxaparin 40 MG/0.4 ML Syringe SUBCUT SCH (11:59)
[2020-10-25] MEDS: Acetaminophen 325 MG Tab PO PRN (15:23)
[2020-10-25] MEDS ORDERED: Diltiazem 25 MG/5 ML SDV IVPUSH ONE (16:04)
[2020-10-25] MEDS: Diltiazem IR 30 MG Tab PO SCH ×2 (17:52→23:25)
[2020-10-26] MEDS: Diltiazem IR 30 MG Tab PO SCH ×4 (05:24→23:57)
[2020-10-26] MEDS: REMDESIVIR 100 MG in Sodium Chloride 0.9% 100 ML IV SCH (05:25)
[2020-10-26 06:06] LABS: BLOOD UREA NITROGEN,BUN 20 mg/dL (7.0-18.0); CARBON DIOXIDE,CO2 28.3 mmol/L (21.0-32.0); CHLORIDE,CL 100 mmol/L (98-107); GLUCOSE RANDOM 133 mg/dL (74-106); POTASSIUM,K 4.7 mmol/L (3.5-5.1); SODIUM,NA 137 mmol/L (136-148)
[2020-10-26] MEDS: Codeine/guaiFENesin 10-100 MG/5 ML Syrup 5 ML Cup PO PRN ×2 (06:47→21:49)
[2020-10-26] MEDS: Docusate Sodium 100 MG Cap PO SCH ×2 (08:50→20:17)
[2020-10-26] MEDS: Dexamethasone 4 MG Tab PO SCH (08:50)
[2020-10-26] MEDS: Pantoprazole 40 MG in Sodium Chloride 0.9% 10 ML IV SCH (08:52)
[2020-10-26] MEDS: Polyethylene Glycol 3350 Powder 17 GM Packet PO SCH (08:52)
[2020-10-26] MEDS: Levofloxacin/Dextrose 5%-Water 750 MG in Premix Bag 1 BAG IV SCH (08:59)
[2020-10-26] MEDS: Albuterol/Ipratropium 4 GM Inhalation Spray INH PRN ×3 (09:12→17:32)
[2020-10-26] MEDS: Ibuprofen 200 MG Tab PO PRN ×3 (09:30→21:48)
[2020-10-26] MEDS: Enoxaparin 40 MG/0.4 ML Syringe SUBCUT SCH (11:26)
--- NOTE | 2020-10-26 15:56 | PCM.PN ---
- General Info Date of Service: 10/26/20 Subjective Update: Patient states he feels much better. Patient was able to sleep last night, denies chest pain, shortness of breath, palpitations, fever, chills, nausea, vomiting, abdominal pain. Patient still states slight cough much improved from previous day. - Review of Systems General: Denies: Fever, Chills Pulmonary: Reports: Cough. Denies: Shortness of Breath Cardiovascular: Denies: Chest Pain, Lightheadedness Gastrointestinal: Denies: Abdominal Pain, Nausea, Vomiting Neurological: Denies: Confusion, Dizziness Psychiatric: Denies: Confusion - Patient Data Vitals - Most Recent: Last Vital Signs Temp 96.5 F L 10/26/20 15:38 Pulse 79 10/26/20 15:38 Resp 20 10/26/20 15:38 BP 105/70 10/26/20 15:38 Pulse Ox 93 L 10/26/20 15:41 Weight - Most Recent: 212 lb 1.355 oz I&O - Last 24 Hours: Intake & Output 10/26/20 10/26/20 10/26/20 06:59 14:59 22:59 Intake Total 950 150 900 Output Total 850 940 Balance 100 150 -40 Lab Results Last 24 Hours: Laboratory Results - last 24 hr 10/25/20 10/26/20 10/26/20 Range/Units 16:07 05:32 05:32 WBC 7.41 (4.0-11.0) K/uL RBC 5.18 (4.50-5.90) M/uL Hgb 15.5 (13.0-17.0) g/dL Hct 45.0 (38.0-50.0) % MCV 86.9 (80.0-98.0) fL MCH 29.9 (27.0-32.0) pg MCHC 34.4 (31.0-37.0) g/dL RDW Std Deviation 39.8 (28.0-62.0) fl RDW Coeff of Carolyn 12 (11.0-15.0) % Plt Count 311 (150-400) K/uL MPV 10.20 (7.40-12.00) fL Neut % (Auto) 82.2 H (48.0-80.0) % Lymph % (Auto) 8.1 L (16.0-40.0) % [place] % (Auto) 9.6 (0.0-15.0) % Eos % (Auto) 0.0 (0.0-7.0) % Baso % (Auto) 0.1 (0.0-1.5) % Neut # (Auto) 6.1 H (1.4-5.7) K/uL Lymph # (Auto) 0.6 (0.6-2.4) K/uL [place] # (Auto) 0.7 (0.0-0.8) K/uL Eos # (Auto) 0.0 (0.0-0.7) K/uL Baso # (Auto) 0.0 (0.0-0.1) K/uL Nucleated RBC % 0.0 /100WBC Nucleated RBCs # 0 K/uL Sodium 137 (136-148) mmol/L Potassium 4.7 (3.5-5.1) mmol/L Chloride 100 (98-107) mmol/L Carbon Dioxide 28.3 (21.0-32.0) mmol/L BUN 20 H (7.0-18.0) mg/dL Creatinine 1.2 (0.8-1.3) mg/dL Est Cr Clr Drug Dosing 88.92 mL/min Estimated GFR (MDRD) > 60.0 ml/min Glucose 133 H (74-106) mg/dL Calcium 8.4 L (8.5-10.1) mg/dL Magnesium 2.8 H (1.8-2.4) mg/dL Total Bilirubin 0.6 (0.2-1.0) mg/dL AST 31 (15-37) IU/L ALT 53 (14-63) IU/L Alkaline Phosphatase 47 (46-116) U/L Total Protein 6.6 (6.4-8.2) g/dL Albumin 2.8 L (3.4-5.0) g/dL Globulin 3.8 (2.6-4.0) g/dL Albumin/Globulin Ratio 0.7 L (0.9-1.6) Free T4 1.35 (0.76-1.46) ng/dL TSH 3rd Generation 0.66 (0.36-3.74) uIU/mL Med Orders - Current: Current Medications Acetaminophen (Acetaminophen 325 Mg Tab) 650 mg PO Q4H PRN PRN Reason: Pain (Mild 1-3)/fever Last Admin: 10/25/20 15:23 Dose: 650 mg Documented by: Albuterol/Ipratropium (Albuterol/Ipratropium 4 Gm Inhalation [place]) 0 gm INH Q4H PRN PRN Reason: Dyspnea Last Admin: 10/26/20 13:42 Dose: 1 puff Documented by: Benzonatate (Benzonatate 100 Mg Cap) 100 mg PO Q6HR PRN PRN Reason: Cough Last Admin: 10/25/20 01:07 Dose: 100 mg Documented by: Dexamethasone (Dexamethasone 4 Mg Tab) 6 mg PO DAILY [facility] Last Admin: 10/26/20 08:50 Dose: 6 mg Documented by: Diltiazem HCl (Diltiazem Ir 30 Mg Tab) 30 mg PO Q6HR [facility] Last Admin: 10/26/20 11:26 Dose: 30 mg Documented by: Docusate Sodium (Docusate Sodium 100 Mg Cap) 100 mg PO BID [facility] Last Admin: 10/26/20 08:50 Dose: 100 mg Documented by: Enoxaparin Sodium (Enoxaparin 40 Mg/0.4 Ml Syringe) 40 mg SUBCUT Q24H [facility] Last Admin: 10/26/20 11:26 Dose: 40 mg Documented by: Guaifenesin/Codeine Phosphate (Codeine/Guaifenesin 10-100 Mg/5 Ml Syrup 5 Ml Cup) 10 ml PO Q4H PRN PRN Reason: Cough Last Admin: 10/26/20 06:47 Dose: 10 ml Documented by: Remdesivir 100 mg/ Sodium (Chloride) 100 mls @ 100 mls/hr IV Q24H [facility] Stop: 10/27/20 06:59 Last Admin: 10/26/20 05:25 Dose: 100 mls/hr Documented by: Levofloxacin/Dextrose 750 mg/ (Premix) 150 mls @ 100 mls/hr IV Q24H [facility] Last Admin: 10/26/20 08:59 Dose: 100 mls/hr Documented by: Pantoprazole Sodium 40 mg/ (Sodium Chloride) 10 mls @ 300 mls/hr IV Q24H [facility] Last Admin: 10/26/20 08:52 Dose: 300 mls/hr Documented by: Ibuprofen (Ibuprofen 200 Mg Tab) 200 mg PO Q6H PRN PRN Reason: Pain (mild 1-3) Last Admin: 10/26/20 15:36 Dose: 200 mg Documented by: Morphine Sulfate (Morphine 2 Mg/Ml Syringe) 2 mg IVPUSH Q4H PRN PRN Reason: Pain Ondansetron HCl (Ondansetron 4 Mg/2 Ml Sdv) 4 mg IVPUSH Q4H PRN PRN Reason: Nausea Polyethylene Glycol (Polyethylene Glycol 3350 Powder 17 Gm Packet) 17 gm PO DAILY [facility] Last Admin: 10/26/20 08:52 Dose: Not Given Documented by: Sodium Chloride (Sodium Chloride 0.9% 10 Ml Syringe) 10 ml FLUSH ASDIRECTED PRN PRN Reason: Keep Vein Open Sodium Chloride (Sodium Chloride 0.9% 2.5 Ml Syringe) 2.5 ml FLUSH ASDIRECTED PRN PRN Reason: Keep Vein Open Last Admin: 10/24/20 06:48 Dose: 2.5 ml Documented by: Discontinued Medications Dexamethasone (Dexamethasone 10 Mg/Ml Sdv) 10 mg IVPUSH ONETIME ONE Stop: 10/23/20 06:27 Last Admin: 10/23/20 06:51 Dose: 10 mg Documented by: Diltiazem HCl (Diltiazem 25 Mg/5 Ml Sdv) 10 mg IVPUSH ONETIME ONE Stop: 10/25/20 16:05 Last Admin: 10/25/20 16:17 Dose: 10 mg Documented by: Remdesivir 200 mg/ Sodium (Chloride) 250 mls @ 250 mls/hr IV ONETIME ONE Stop: 10/23/20 06:19 Last Admin: 10/23/20 08:03 Dose: 250 mls/hr Documented by: Pantoprazole Sodium 40 mg/ (Sodium Chloride) 10 mls @ 300 mls/hr IV Q24H [facility] Iopamidol (Iopamidol 755 Mg/Ml 500 Ml Multipack Bottle) 100 ml IVPUSH ONETIME ONE Stop: 10/23/20 10:29 Last Admin: 10/23/20 10:29 Dose: 100 ml Documented by: Morphine Sulfate (Morphine 2 Mg/Ml Syringe) Confirm Administered Dose 2 mg .ROUTE .STK-MED ONE Stop: 10/23/20 21:18 Last Admin: 10/24/20 02:56 Dose: Not Given Documented by: Ondansetron HCl (Ondansetron 4 Mg/2 Ml Sdv) 4 mg IVPUSH ONETIME ONE Stop: 10/23/20 06:56 Last Admin: 10/23/20 07:04 Dose: 4 mg Documented by: - Exam Quality Assessment: Supplemental Oxygen (4L via NC) General: Alert, Oriented Lungs: Clear to Auscultation, Normal Respiratory Effort Cardiovascular: Regular Rate, Irregular Rhythm GI/Abdominal Exam: Normal Bowel Sounds, Soft, Non-Tender Extremities: No Pedal Edema Psy/Mental Status: Alert - Patient Data Lab Results Last 24 hrs: Laboratory Results - last 24 hr 10/25/20 10/26/20 10/26/20 Range/Units 16:07 05:32 05:32 WBC 7.41 (4.0-11.0) K/uL RBC 5.18 (4.50-5.90) M/uL Hgb 15.5 (13.0-17.0) g/dL Hct 45.0 (38.0-50.0) % MCV 86.9 (80.0-98.0) fL MCH 29.9 (27.0-32.0) pg MCHC 34.4 (31.0-37.0) g/dL RDW Std Deviation 39.8 (28.0-62.0) fl RDW Coeff of Carolyn 12 (11.0-15.0) % Plt Count 311 (150-400) K/uL MPV 10.20 (7.40-12.00) fL Neut % (Auto) 82.2 H (48.0-80.0) % Lymph % (Auto) 8.1 L (16.0-40.0) % [place] % (Auto) 9.6 (0.0-15.0) % Eos % (Auto) 0.0 (0.0-7.0) % Baso % (Auto) 0.1 (0.0-1.5) % Neut # (Auto) 6.1 H (1.4-5.7) K/uL Lymph # (Auto) 0.6 (0.6-2.4) K/uL [place] # (Auto) 0.7 (0.0-0.8) K/uL Eos # (Auto) 0.0 (0.0-0.7) K/uL Baso # (Auto) 0.0 (0.0-0.1) K/uL Nucleated RBC % 0.0 /100WBC Nucleated RBCs # 0 K/uL Sodium 137 (136-148) mmol/L Potassium 4.7 (3.5-5.1) mmol/L Chloride 100 (98-107) mmol/L Carbon Dioxide 28.3 (21.0-32.0) mmol/L BUN 20 H (7.0-18.0) mg/dL Creatinine 1.2 (0.8-1.3) mg/dL Est Cr Clr Drug Dosing 88.92 mL/min Estimated GFR (MDRD) > 60.0 ml/min Glucose 133 H (74-106) mg/dL Calcium 8.4 L (8.5-10.1) mg/dL Magnesium 2.8 H (1.8-2.4) mg/dL Total Bilirubin 0.6 (0.2-1.0) mg/dL AST 31 (15-37) IU/L ALT 53 (14-63) IU/L Alkaline Phosphatase 47 (46-116) U/L Total Protein 6.6 (6.4-8.2) g/dL Albumin 2.8 L (3.4-5.0) g/dL Globulin 3.8 (2.6-4.0) g/dL Albumin/Globulin Ratio 0.7 L (0.9-1.6) Free T4 1.35 (0.76-1.46) ng/dL TSH 3rd Generation 0.66 (0.36-3.74) uIU/mL Result Diagrams: 10/26/20 05:32 10/26/20 05:32 Sepsis Event Note - Evaluation Sepsis Screening Result: No Definite Risk - Focused Exam Vital Signs: Vital Signs Temp Pulse Resp BP Pulse Ox Pulse Ox 10/26/20 15:41 93 L 10/26/20 15:38 96.5 F L 79 20 105/70 94 L 10/26/20 13:43 94 L 10/26/20 13:40 94 L 10/26/20 11:33 93 L 10/26/20 11:28 97.1 F 87 18 109/76 94 L 10/26/20 08:47 97 F 73 18 116/66 91 L 10/26/20 06:53 20 90 L 10/26/20 05:31 18 91 L 10/26/20 05:00 20 88 L 10/26/20 04:15 96.7 F L 100 18 114/73 92 L - Problem List & Annotations (1) COVID-19 SNOMED Code(s): 808336664 Code(s): U07.1 - COVID-19 Status: Acute Current Visit: Yes (2) Hypoxia SNOMED Code(s): 710962112 Code(s): R09.02 - HYPOXEMIA Status: Acute Current Visit: Yes (3) Pneumonia due to COVID-19 virus SNOMED Code(s): 685225507528242571 Code(s): U07.1 - COVID-19; J12.82 - PNEUMONIA DUE TO CORONAVIRUS DISEASE 2019 Status: Acute Current Visit: No - Problem List Review Problem List Initiated/Reviewed/Updated: Yes - My Orders Last 24 Hours: My Active Orders 10/25/20 18:00 Diltiazem IR [Cardizem] 30 mg PO Q6HR - Plan Plan:: Acute hypoxic respiratory failure secondary to COVID pneumonia- 4 L via nasal cannula, oxygen saturations between 90-93%. Continue remdesivir, dexamethasone, Lovenox for dvt prophylaxis, Levaquin to prevent secondary bacterial infection, guaifenesin/codeine for cough prn, Incentive spirometery, prone positioning. Patients O2 saturations drop with coughing bouts. Afib- Patient had bouts of A-Fib RVR yesterday, started on 30mg Cardizem PO Q6. Patents HR today controlled but still irregular rhythm. Will monitor on telemetry and adjust medications as needed. MiraLAX, Colace for constipation. Protonix Q24H for hiccups, which seem to have improved hiccups.
[2020-10-26] MEDS: Sodium Chloride 0.65% Nasal Spray 45 ML Bottle NAS PRN (20:34)
[2020-10-27] MEDS: Ibuprofen 200 MG Tab PO PRN (05:38)
[2020-10-27] MEDS: Diltiazem IR 30 MG Tab PO SCH ×2 (05:38→11:37)
[2020-10-27] MEDS: Codeine/guaiFENesin 10-100 MG/5 ML Syrup 5 ML Cup PO PRN ×2 (05:39→11:37)
[2020-10-27] MEDS: REMDESIVIR 100 MG in Sodium Chloride 0.9% 100 ML IV SCH (05:44)
[2020-10-27] MEDS: Sodium Chloride 0.65% Nasal Spray 45 ML Bottle NAS PRN ×2 (05:47→08:34)
[2020-10-27 05:54] LABS: BLOOD UREA NITROGEN,BUN 21 mg/dL (7.0-18.0); CARBON DIOXIDE,CO2 29.8 mmol/L (21.0-32.0); CHLORIDE,CL 100 mmol/L (98-107); GLUCOSE RANDOM 130 mg/dL (74-106); POTASSIUM,K 4.7 mmol/L (3.5-5.1); SODIUM,NA 135 mmol/L (136-148)
[2020-10-27] MEDS: Benzonatate 100 MG Cap PO PRN (08:25)
[2020-10-27] MEDS: Dexamethasone 4 MG Tab PO SCH (08:25)
[2020-10-27] MEDS: Pantoprazole 40 MG in Sodium Chloride 0.9% 10 ML IV SCH (08:26)
[2020-10-27] MEDS: Sodium Chloride 0.9% 2.5 ML Syringe FLUSH PRN (08:36)
[2020-10-27] MEDS: Polyethylene Glycol 3350 Powder 17 GM Packet PO SCH (08:40)
[2020-10-27] MEDS: Docusate Sodium 100 MG Cap PO SCH (08:40)
[2020-10-27] MEDS: Levofloxacin/Dextrose 5%-Water 750 MG in Premix Bag 1 BAG IV SCH (09:34)
[2020-10-27] MEDS: Albuterol/Ipratropium 4 GM Inhalation Spray INH PRN (10:42)
--- NOTE | 2020-10-27 10:44 | PCM.DCSUM1 ---
<Orlando Garcia - Last Filed: 10/27/20 10:44> Discharge Summary - Hospital Course Free Text/Narrative:: 40 yo male for 5 days admitted for acute hypoxic respiratory failure secondary to Covid pneumonia. Patient reports that he tested positive for COVID on October 10 but was symptomatic prior to that. He had been treated outpatient with clarithromycin and inhalers which did not resolve any of his symptoms prior to admission. Patient was hypoxic with O2 saturations in the mid 80s prior to ad mission. Patient's was mostly on nasal cannula oxygen support during admission and trialed for one evening on humidified high flow which she did not tolerate as patient stated that the humidification was too warm and it was very uncomfortable. Patient completed remdesivir 5-day course, and received dexamethasone, Lovenox for dvt prophylaxis and Levaquin to prevent secondary bacterial infection. Prior to discharge patient was noted to be in A. fib-RVR and was started on 30 mg of Cardizem every 6 hours. Patient's rate was controlled but rhythm still atrial fibrillation, atrial flutter upon discharge. At discharge patient was sating between 90-92% on room air, but did require 2-3 L oxygen with activity. Patient will be discharged on home O2, Levaquin X 1 DAY, diltiazem 120 mg ER, aspirin 81 mg, home. Patient's Chadsvasc score equals 0. Patient referred to cardiology for follow-up appointment. Medications to be adjusted at patient's primary care appointment. Patient was advised to monitor heart rate and blood pressure at home. Patient also advised to report any symptoms of lightheadedness, dizziness, chest pain, shortness of breath, heart palpitations to primary care physician. If patient's chest pain, shortness of breath, heart palpitations are severe, patient advised to visit emergency department. - Discharge Data Discharge Date: 10/27/20 Discharge Disposition: Home, Self-Care 01 Condition: Stable - Referral to Home Health Primary Care Physician: PCP None - Discharge Diagnosis/Problem(s) (1) COVID-19 SNOMED Code(s): 073992415 ICD Code: U07.1 - COVID-19 Status: Acute Current Visit: Yes (2) Hypoxia SNOMED Code(s): 530453399 ICD Code: R09.02 - HYPOXEMIA Status: Acute Current Visit: Yes (3) Pneumonia due to COVID-19 virus SNOMED Code(s): 033634942910484777 ICD Code: U07.1 - COVID-19; J12.82 - PNEUMONIA DUE TO CORONAVIRUS DISEASE 2019 Status: Acute Current Visit: No - Patient Instructions Diet: Usual Diet as Tolerated Activity: As Tolerated Showering/Bathing: May Shower Notify Provider of: Fever, Increased Pain, Nausea and/or Vomiting Other/Special Instructions: -REVIEW ALL MEDICATIONS AT NEXT DOCTORS VISIT. - REPORT ANY SIGNS OF DIZZINESS, LIGHTHEADEDNESS, CHEST PAIN, SHORTNESS OF BREATH, HEART PALPATATIONS TO DOCTOR. - FOR SEVERE CHEST PAIN, DIZZINESS OR SHORTNESS OF BREATH VISIT EMERGENCY DEPT. - MONITOR BLOOD PRESSURE AND HEART RATE REGULARLY AT HOME. - Discharge Plan Prescriptions/Med Rec: Aspirin 81 mg PO DAILY 30 Days #30 tab.chew dilTIAZem HCL [Diltiazem 24Hr ER] 120 mg PO DAILY 14 Days #14 cap.er.24h levoFLOXacin [Levaquin] 750 mg PO DAILY 1 Days #1 tab Sodium Chloride 0.65% [Emmons Nasal [place]] 1 ml JASMIN ONETIME PRN #1 bottle PRN Reason: Rhinitis Home Medications: Home Meds Aspirin 81 mg PO DAILY 30 Days #30 tab.chew 10/27/20 [Rx] Sodium Chloride 0.65% [Emmons Nasal [place]] 1 ml JASMIN ONETIME PRN #1 bottle 10/27 [Rx] dilTIAZem HCL [Diltiazem 24Hr ER] 120 mg PO DAILY 14 Days #14 cap.er.24h 10/27/20 [Rx] levoFLOXacin [Levaquin] 750 mg PO DAILY 1 Days #1 tab 10/27/20 [Rx] Patient Handouts: Hypoxia, COVID-19, Home Oxygen Use, Adult, Levofloxacin tablets, Aspirin, ASA oral tablets, Diltiazem Oral Tablets, Atrial Fibrillation, Rxoc-us-Rpcm Referrals: Paulette Garrett MD [Physician] - 12/09/20 11:00 am Lefty Salinas MD [Physician] - 11/08/20 8:00 am (Please call the clinic with any questions or concerns.) - Discharge Summary/Plan Comment DC Time >30 min.: Yes - General Info Date of Service: 10/27/20 Subjective Update: Patient states he feels much better today. Patient also states he would like to go home, denies chest pain, shortness of breath, dizziness, headaches, lightheadedness, or heart palpitations. Patient still states mild cough. - Review of Systems General: Denies: Fever, Chills Pulmonary: Reports: Cough. Denies: Shortness of Breath Cardiovascular: Denies: Chest Pain, Palpitations, Lightheadedness Gastrointestinal: Denies: Abdominal Pain, Nausea, Vomiting Neurological: Denies: Confusion, Dizziness, Trouble Speaking Psychiatric: Denies: Confusion - Patient Data Vitals - Most Recent: Last Vital Signs Temp 96.7 F L 10/27/20 08:26 Pulse 93 10/27/20 08:26 Resp 16 10/27/20 08:26 BP 107/69 10/27/20 08:26 Pulse Ox 92 L 10/27/20 08:26 Weight - Most Recent: 96.2 kg I&O - Last 24 hours: Intake & Output 10/26/20 10/27/20 10/27/20 22:59 06:59 14:59 Intake Total 900 440 360 Output Total 940 500 Balance -40 -60 360 Lab Results - Last 24 hrs: Laboratory Results - last 24 hr 10/27/20 10/27/20 Range/Units 05:16 05:16 WBC 7.98 (4.0-11.0) K/uL RBC 5.39 (4.50-5.90) M/uL Hgb 15.8 (13.0-17.0) g/dL Hct 47.5 (38.0-50.0) % MCV 88.1 (80.0-98.0) fL MCH 29.3 (27.0-32.0) pg MCHC 33.3 (31.0-37.0) g/dL RDW Std Deviation 40.3 (28.0-62.0) fl RDW Coeff of Carolyn 13 (11.0-15.0) % Plt Count 319 (150-400) K/uL MPV 10.50 (7.40-12.00) fL Neut % (Auto) 80.5 H (48.0-80.0) % Lymph % (Auto) 9.9 L (16.0-40.0) % [place] % (Auto) 9.5 (0.0-15.0) % Eos % (Auto) 0.0 (0.0-7.0) % Baso % (Auto) 0.1 (0.0-1.5) % Neut # (Auto) 6.4 H (1.4-5.7) K/uL Lymph # (Auto) 0.8 (0.6-2.4) K/uL [place] # (Auto) 0.8 (0.0-0.8) K/uL Eos # (Auto) 0.0 (0.0-0.7) K/uL Baso # (Auto) 0.0 (0.0-0.1) K/uL Nucleated RBC % 0.0 /100WBC Nucleated RBCs # 0 K/uL Sodium 135 L (136-148) mmol/L Potassium 4.7 (3.5-5.1) mmol/L Chloride 100 (98-107) mmol/L Carbon Dioxide 29.8 (21.0-32.0) mmol/L BUN 21 H (7.0-18.0) mg/dL Creatinine 1.3 (0.8-1.3) mg/dL Est Cr Clr Drug Dosing 82.08 mL/min Estimated GFR (MDRD) > 60.0 ml/min Glucose 130 H (74-106) mg/dL Calcium 8.7 (8.5-10.1) mg/dL Total Bilirubin 0.6 (0.2-1.0) mg/dL AST 26 (15-37) IU/L ALT 48 (14-63) IU/L Alkaline Phosphatase 48 (46-116) U/L Total Protein 6.6 (6.4-8.2) g/dL Albumin 2.8 L (3.4-5.0) g/dL Globulin 3.8 (2.6-4.0) g/dL Albumin/Globulin Ratio 0.7 L (0.9-1.6) Med Orders - Current: Current Medications Acetaminophen (Acetaminophen 325 Mg Tab) 650 mg PO Q4H PRN PRN Reason: Pain (Mild 1-3)/fever Last Admin: 10/25/20 15:23 Dose: 650 mg Documented by: Albuterol/Ipratropium (Albuterol/Ipratropium 4 Gm Inhalation [place]) 0 gm INH Q4H PRN PRN Reason: Dyspnea Last Admin: 10/27/20 10:42 Dose: 1 puff Documented by: Benzonatate (Benzonatate 100 Mg Cap) 100 mg PO Q6HR PRN PRN Reason: Cough Last Admin: 10/27/20 08:25 Dose: 100 mg Documented by: Dexamethasone (Dexamethasone 4 Mg Tab) 6 mg PO DAILY [facility] Last Admin: 10/27/20 08:25 Dose: 6 mg Documented by: Diltiazem HCl (Diltiazem Ir 30 Mg Tab) 30 mg PO Q6HR [facility] Last Admin: 10/27/20 05:38 Dose: 30 mg Documented by: Docusate Sodium (Docusate Sodium 100 Mg Cap) 100 mg PO BID [facility] Last Admin: 10/27/20 08:40 Dose: Not Given Documented by: Enoxaparin Sodium (Enoxaparin 40 Mg/0.4 Ml Syringe) 40 mg SUBCUT Q24H [facility] Last Admin: 10/26/20 11:26 Dose: 40 mg Documented by: Guaifenesin/Codeine Phosphate (Codeine/Guaifenesin 10-100 Mg/5 Ml Syrup 5 Ml Cup) 10 ml PO Q4H PRN PRN Reason: Cough Last Admin: 10/27/20 05:39 Dose: 10 ml Documented by: Levofloxacin/Dextrose 750 mg/ (Premix) 150 mls @ 100 mls/hr IV Q24H [facility] Last Admin: 10/27/20 09:34 Dose: 100 mls/hr Documented by: Pantoprazole Sodium 40 mg/ (Sodium Chloride) 10 mls @ 300 mls/hr IV Q24H [facility] Last Admin: 10/27/20 08:26 Dose: 300 mls/hr Documented by: Ibuprofen (Ibuprofen 200 Mg Tab) 200 mg PO Q6H PRN PRN Reason: Pain (mild 1-3) Last Admin: 10/27/20 05:38 Dose: 200 mg Documented by: Morphine Sulfate (Morphine 2 Mg/Ml Syringe) 2 mg IVPUSH Q4H PRN PRN Reason: Pain Ondansetron HCl (Ondansetron 4 Mg/2 Ml Sdv) 4 mg IVPUSH Q4H PRN PRN Reason: Nausea Polyethylene Glycol (Polyethylene Glycol 3350 Powder 17 Gm Packet) 17 gm PO DAILY [facility] Last Admin: 10/27/20 08:40 Dose: Not Given Documented by: Sodium Chloride (Sodium Chloride 0.9% 10 Ml Syringe) 10 ml FLUSH ASDIRECTED PRN PRN Reason: Keep Vein Open Sodium Chloride (Sodium Chloride 0.9% 2.5 Ml Syringe) 2.5 ml FLUSH ASDIRECTED PRN PRN Reason: Keep Vein Open Last Admin: 10/27/20 08:36 Dose: 2.5 ml Documented by: Sodium Chloride (Sodium Chloride 0.65% Nasal [place] 45 Ml Bottle) 0 ml JASMIN Q2H PRN PRN Reason: Rhinitis Last Admin: 10/27/20 08:34 Dose: 2 spray Documented by: Discontinued Medications Dexamethasone (Dexamethasone 10 Mg/Ml Sdv) 10 mg IVPUSH ONETIME ONE Stop: 10/23/20 06:27 Last Admin: 10/23/20 06:51 Dose: 10 mg Documented by: Diltiazem HCl (Diltiazem 25 Mg/5 Ml Sdv) 10 mg IVPUSH ONETIME ONE Stop: 10/25/20 16:05 Last Admin: 10/25/20 16:17 Dose: 10 mg Documented by: Remdesivir 200 mg/ Sodium (Chloride) 250 mls @ 250 mls/hr IV ONETIME ONE Stop: 10/23/20 06:19 Last Admin: 10/23/20 08:03 Dose: 250 mls/hr Documented by: Remdesivir 100 mg/ Sodium (Chloride) 100 mls @ 100 mls/hr IV Q24H [facility] Stop: 10/27/20 06:59 Last Admin: 10/27/20 05:44 Dose: 100 mls/hr Documented by: Pantoprazole Sodium 40 mg/ (Sodium Chloride) 10 mls @ 300 mls/hr IV Q24H [facility] Iopamidol (Iopamidol 755 Mg/Ml 500 Ml Multipack Bottle) 100 ml IVPUSH ONETIME ONE Stop: 10/23/20 10:29 Last Admin: 10/23/20 10:29 Dose: 100 ml Documented by: Morphine Sulfate (Morphine 2 Mg/Ml Syringe) Confirm Administered Dose 2 mg .ROUTE .STK-MED ONE Stop: 10/23/20 21:18 Last Admin: 10/24/20 02:56 Dose: Not Given Documented by: Ondansetron HCl (Ondansetron 4 Mg/2 Ml Sdv) 4 mg IVPUSH ONETIME ONE Stop: 10/23/20 06:56 Last Admin: 10/23/20 07:04 Dose: 4 mg Documented by: - Exam General: Reports: Alert, Oriented Lungs: Reports: Clear to Auscultation, Normal Respiratory Effort Cardiovascular: Reports: Regular Rate, Irregular Rhythm GI/Abdominal Exam: Normal Bowel Sounds, Soft, Non-Tender Extremities: No Pedal Edema Psy/Mental Status: Reports: Alert <Bo White - Last Filed: 10/27/20 12:49> Discharge Summary - Referral to Home Health Primary Care Physician: PCP None - Patient Data Vitals - Most Recent: Last Vital Signs Temp 35.9 C L 10/27/20 11:37 Pulse 97 10/27/20 11:37 Resp 16 10/27/20 11:37 BP 107/68 10/27/20 11:37 Pulse Ox 88 L 10/27/20 11:37 I&O - Last 24 hours: Intake & Output 10/26/20 10/27/20 10/27/20 22:59 06:59 14:59 Intake Total 900 440 360 Output Total 940 500 Balance -40 -60 360 Lab Results - Last 24 hrs: Laboratory Results - last 24 hr 10/27/20 10/27/20 Range/Units 05:16 05:16 WBC 7.98 (4.0-11.0) K/uL RBC 5.39 (4.50-5.90) M/uL Hgb 15.8 (13.0-17.0) g/dL Hct 47.5 (38.0-50.0) % MCV 88.1 (80.0-98.0) fL MCH 29.3 (27.0-32.0) pg MCHC 33.3 (31.0-37.0) g/dL RDW Std Deviation 40.3 (28.0-62.0) fl RDW Coeff of Carolyn 13 (11.0-15.0) % Plt Count 319 (150-400) K/uL MPV 10.50 (7.40-12.00) fL Neut % (Auto) 80.5 H (48.0-80.0) % Lymph % (Auto) 9.9 L (16.0-40.0) % [place] % (Auto) 9.5 (0.0-15.0) % Eos % (Auto) 0.0 (0.0-7.0) % Baso % (Auto) 0.1 (0.0-1.5) % Neut # (Auto) 6.4 H (1.4-5.7) K/uL Lymph # (Auto) 0.8 (0.6-2.4) K/uL [place] # (Auto) 0.8 (0.0-0.8) K/uL Eos # (Auto) 0.0 (0.0-0.7) K/uL Baso # (Auto) 0.0 (0.0-0.1) K/uL Nucleated RBC % 0.0 /100WBC Nucleated RBCs # 0 K/uL Sodium 135 L (136-148) mmol/L Potassium 4.7 (3.5-5.1) mmol/L Chloride 100 (98-107) mmol/L Carbon Dioxide 29.8 (21.0-32.0) mmol/L BUN 21 H (7.0-18.0) mg/dL Creatinine 1.3 (0.8-1.3) mg/dL Est Cr Clr Drug Dosing 82.08 mL/min Estimated GFR (MDRD) > 60.0 ml/min Glucose 130 H (74-106) mg/dL Calcium 8.7 (8.5-10.1) mg/dL Total Bilirubin 0.6 (0.2-1.0) mg/dL AST 26 (15-37) IU/L ALT 48 (14-63) IU/L Alkaline Phosphatase 48 (46-116) U/L Total Protein 6.6 (6.4-8.2) g/dL Albumin 2.8 L (3.4-5.0) g/dL Globulin 3.8 (2.6-4.0) g/dL Albumin/Globulin Ratio 0.7 L (0.9-1.6) Med Orders - Current: Current Medications Acetaminophen (Acetaminophen 325 Mg Tab) 650 mg PO Q4H PRN PRN Reason: Pain (Mild 1-3)/fever Last Admin: 10/25/20 15:23 Dose: 650 mg Documented by: Albuterol/Ipratropium (Albuterol/Ipratropium 4 Gm Inhalation [place]) 0 gm INH Q4H PRN PRN Reason: Dyspnea Last Admin: 10/27/20 10:42 Dose: 1 puff Documented by: Benzonatate (Benzonatate 100 Mg Cap) 100 mg PO Q6HR PRN PRN Reason: Cough Last Admin: 10/27/20 08:25 Dose: 100 mg Documented by: Dexamethasone (Dexamethasone 4 Mg Tab) 6 mg PO DAILY [facility] Last Admin: 10/27/20 08:25 Dose: 6 mg Documented by: Diltiazem HCl (Diltiazem Ir 30 Mg Tab) 30 mg PO Q6HR [facility] Last Admin: 10/27/20 11:37 Dose: 30 mg Documented by: Docusate Sodium (Docusate Sodium 100 Mg Cap) 100 mg PO BID [facility] Last Admin: 10/27/20 08:40 Dose: Not Given Documented by: Enoxaparin Sodium (Enoxaparin 40 Mg/0.4 Ml Syringe) 40 mg SUBCUT Q24H [facility] Last Admin: 10/27/20 12:47 Dose: Not Given Documented by: Guaifenesin/Codeine Phosphate (Codeine/Guaifenesin 10-100 Mg/5 Ml Syrup 5 Ml Cup) 10 ml PO Q4H PRN PRN Reason: Cough Last Admin: 10/27/20 11:37 Dose: 10 ml Documented by: Levofloxacin/Dextrose 750 mg/ (Premix) 150 mls @ 100 mls/hr IV Q24H [facility] Last Admin: 10/27/20 09:34 Dose: 100 mls/hr Documented by: Pantoprazole Sodium 40 mg/ (Sodium Chloride) 10 mls @ 300 mls/hr IV Q24H [facility] Last Admin: 10/27/20 08:26 Dose: 300 mls/hr Documented by: Ibuprofen (Ibuprofen 200 Mg Tab) 200 mg PO Q6H PRN PRN Reason: Pain (mild 1-3) Last Admin: 10/27/20 05:38 Dose: 200 mg Documented by: Morphine Sulfate (Morphine 2 Mg/Ml Syringe) 2 mg IVPUSH Q4H PRN PRN Reason: Pain Ondansetron HCl (Ondansetron 4 Mg/2 Ml Sdv) 4 mg IVPUSH Q4H PRN PRN Reason: Nausea Polyethylene Glycol (Polyethylene Glycol 3350 Powder 17 Gm Packet) 17 gm PO DAILY [facility] Last Admin: 10/27/20 08:40 Dose: Not Given Documented by: Sodium Chloride (Sodium Chloride 0.9% 10 Ml Syringe) 10 ml FLUSH ASDIRECTED PRN PRN Reason: Keep Vein Open Sodium Chloride (Sodium Chloride 0.9% 2.5 Ml Syringe) 2.5 ml FLUSH ASDIRECTED PRN PRN Reason: Keep Vein Open Last Admin: 10/27/20 08:36 Dose: 2.5 ml Documented by: Sodium Chloride (Sodium Chloride 0.65% Nasal [place] 45 Ml Bottle) 0 ml JASMIN Q2H PRN PRN Reason: Rhinitis Last Admin: 10/27/20 08:34 Dose: 2 spray Documented by: Discontinued Medications Dexamethasone (Dexamethasone 10 Mg/Ml Sdv) 10 mg IVPUSH ONETIME ONE Stop: 10/23/20 06:27 Last Admin: 10/23/20 06:51 Dose: 10 mg Documented by: Diltiazem HCl (Diltiazem 25 Mg/5 Ml Sdv) 10 mg IVPUSH ONETIME ONE Stop: 10/25/20 16:05 Last Admin: 10/25/20 16:17 Dose: 10 mg Documented by: Remdesivir 200 mg/ Sodium (Chloride) 250 mls @ 250 mls/hr IV ONETIME ONE Stop: 10/23/20 06:19 Last Admin: 10/23/20 08:03 Dose: 250 mls/hr Documented by: Remdesivir 100 mg/ Sodium (Chloride) 100 mls @ 100 mls/hr IV Q24H [facility] Stop: 10/27/20 06:59 Last Admin: 10/27/20 05:44 Dose: 100 mls/hr Documented by: Pantoprazole Sodium 40 mg/ (Sodium Chloride) 10 mls @ 300 mls/hr IV Q24H [facility] Iopamidol (Iopamidol 755 Mg/Ml 500 Ml Multipack Bottle) 100 ml IVPUSH ONETIME ONE Stop: 10/23/20 10:29 Last Admin: 10/23/20 10:29 Dose: 100 ml Documented by: Morphine Sulfate (Morphine 2 Mg/Ml Syringe) Confirm Administered Dose 2 mg .ROUTE .STK-MED ONE Stop: 10/23/20 21:18 Last Admin: 10/24/20 02:56 Dose: Not Given Documented by: Ondansetron HCl (Ondansetron 4 Mg/2 Ml Sdv) 4 mg IVPUSH ONETIME ONE Stop: 10/23/20 06:56 Last Admin: 10/23/20 07:04 Dose: 4 mg Documented by: - Free Text/Narrative Note: I have seen and evaluated the patient with the resident. I discussed findings and treatment plan with the resident. I agree with the assessment and plan outlined in the resident's note.
[2020-10-27] MEDS: Enoxaparin 40 MG/0.4 ML Syringe SUBCUT SCH (12:47)
== END 2020-10-27 13:28 | disposition home or self-care (01) | DRG 177 ==
LOC: MW.ED 05:46 → MW.MS 06:21
PROVIDERS: ADMIT Internal Medicine; ATTEND Internal Medicine
PROC: XW033E5 Introduction of Remdesivir Anti-infective into Peripheral Vein, Percutaneous Approach, New Technology Group 5 (ICD-10-PCS; principal; 2020-10-23)
PROC: 5A0945A Assistance with Respiratory Ventilation, 24-96 Consecutive Hours, High Flow/Velocity Cannula (ICD-10-PCS; 2020-10-23)
DX: U07.1 COVID-19 (principal); J12.82 Pneumonia due to coronavirus disease 2019; J96.01 Acute respiratory failure with hypoxia; I48.91 Unspecified atrial fibrillation; K59.00 Constipation, unspecified
CPT/HCPCS: 36415; 71275; 71275-26; 80053; 82248; 82306; 83735; 84439; 84443; 85025; 94667; 99284; 99285; A9270-GY; C9113; J1100; J1650; J1956; J2405; J3490; J7050; J8540; Q9967

== ENCOUNTER 2020-11-07 09:27 | Inpatient (IN) | payer SELFPAY ==
--- NOTE | 2020-11-07 09:31 | EDM.PDOC ---
ED HPI GENERAL MEDICAL PROBLEM - General Stated Complaint: SHORT OF BREATH Time Seen by Provider: 11/07/20 09:28 Source of Information: Reports: Patient History Limitations: Reports: No Limitations - History of Present Illness INITIAL COMMENTS - FREE TEXT/NARRATIVE: 40-year-old male past medical history recent admission to the hospital for COVID-19, currently on home O2, new onset A. fib presents for shortness of breath. Patient was seen in the clinic and found to be hypoxic to 91% despite bumping up his home O2 to 5 L and was sent to the emergency department for further evaluation. Patient had been discharged on just baby aspirin as his [id number] score was 0 for his new onset A. fib. Patient notes that since discharge from hospital he has had on and off episodes of rapid heart rate assoc iated with worsening shortness of breath. He has been using 5 L nasal cannula instead of his prescribed 3 L to maintain normal oxygen saturations. He is also noting pain in his right torso that is worse with inspiration. He notes that he was seen by [facility] and prescribed an antibiotic although he cannot member the name of it for potential superimposed bacterial pneumonia. Right abdominal Pain Score (Numeric/FACES): 7 - Related Data Allergies Allergy/AdvReac Type Severity Reaction Status Date / Time No Known Allergies Allergy Verified 11/07/20 09:42 Home Meds: Home Meds Aspirin 81 mg PO DAILY 30 Days #30 tab.chew 10/27/20 [Rx] dilTIAZem HCL [Diltiazem 24Hr ER] 120 mg PO DAILY 14 Days #14 cap.er.24h 10/27/20 [Rx] Clarithromycin [Clarithromycin ER] 500 mg PO DAILY 11/07/20 [History] Past Medical History - Past Health History Medical/Surgical History: Denies Medical/Surgical History - Infectious Disease History Infectious Disease History: Reports: None Social & Family History - Family History Family Medical History: No Pertinent Family History - Caffeine Use Caffeine Use: Reports: Coffee ED ROS GENERAL - Review of Systems Review Of Systems: Comprehensive ROS is negative, except as noted in HPI. ED EXAM, GENERAL - Physical Exam Exam: See Below Exam Limited By: No Limitations General Appearance: Alert, WD/WN, No Apparent Distress Throat/Mouth: Normal Voice, No Airway Compromise Head: Atraumatic, Normocephalic Neck: Normal Inspection Respiratory/Chest: No Respiratory Distress, Lungs Clear, Normal Breath Sounds, No Accessory Muscle Use, Other (tachypnea) Cardiovascular: Normal Peripheral Pulses, Tachycardia, Irregularly Irregular GI/Abdominal: Soft, Non-Tender Extremities: Normal Inspection Neurological: Alert Psychiatric: Normal Affect, Normal Mood Skin Exam: Warm, Dry, Intact, Normal Color #1 Interpretation EKG Date: 11/07/20 Time: 09:35 Rhythm: A-Fib Rate (Beats/Min): 165 [place]: Normal QRS: Normal ST-T: Normal QT: Normal EKG Interpretation Comments: Atrial fibrillation with rapid ventricular response Course - Vital Signs Last Recorded V/S: Last Vital Signs Temp 98.6 F 11/07/20 09:43 Pulse 86 11/07/20 12:08 Resp 18 11/07/20 12:08 BP 130/88 11/07/20 12:08 Pulse Ox 97 11/07/20 12:08 - Orders/Labs/Meds Orders: Active Orders 24 hr Category Date Time Status Patient Status [ADT] Routine ADT 11/07/20 12:20 Ordered Cardiac Monitoring [RC] . DIRECTED Care 11/07/20 09:41 Active EKG 12 Lead [EKG Documentation Completion] [RC] ROUTINE Care 11/07/20 09:40 Active EKG Documentation Completion [RC] STAT Care 11/07/20 11:50 Active Pulse Oximetry [RC] ASDIRECTED Care 11/07/20 09:41 Active Diltiazem [Cardizem] 100 mg Med 11/07/20 10:30 Active Sodium Chloride 0.9% [Normal Saline] 100 ml IV NOW Sodium Chloride 0.9% [Saline Flush] Med 11/07/20 09:41 Active 10 ml FLUSH ASDIRECTED PRN Sodium Chloride 0.9% [Saline Flush] Med 11/07/20 09:41 Active 2.5 ml FLUSH ASDIRECTED PRN Saline Lock Insert [OM.PC] Stat Oth 11/07/20 09:41 Ordered Medication Orders Diltiazem HCl 100 mg/ Sodium (Chloride) 100 mls @ 5 mls/hr IV NOW [facility]; Protocol Last Titration: 11/07/20 11:41 Dose: 10 mg/hr, 10 mls/hr Documented by: [id number] Admin: 11/07/20 10:34 Dose: 5 mg/hr, 5 mls/hr Documented by: [id number] Sodium Chloride (Sodium Chloride 0.9% 10 Ml Syringe) 10 ml FLUSH ASDIRECTED PRN PRN Reason: Keep Vein Open Last Admin: 11/07/20 10:04 Dose: 10 ml Documented by: [id number] Sodium Chloride (Sodium Chloride 0.9% 2.5 Ml Syringe) 2.5 ml FLUSH ASDIRECTED PRN PRN Reason: Keep Vein Open Last Admin: 11/07/20 10:04 Dose: 2.5 ml Documented by: [id number] Labs: Laboratory Tests 11/07/20 11/07/20 11/07/20 Range/Units 09:32 09:32 09:32 WBC 15.77 H (4.0-11.0) K/uL RBC 5.55 (4.50-5.90) M/uL Hgb 16.4 (13.0-17.0) g/dL Hct 47.8 (38.0-50.0) % MCV 86.1 (80.0-98.0) fL MCH 29.5 (27.0-32.0) pg MCHC 34.3 (31.0-37.0) g/dL RDW Std Deviation 39.4 (28.0-62.0) fl RDW Coeff of Carolyn 13 (11.0-15.0) % Plt Count 399 (150-400) K/uL MPV 9.80 (7.40-12.00) fL Add Manual Diff YES Neutrophils % (Manual) 80 (48.0-80.0) % Band Neutrophils % 5 % Lymphocytes % (Manual) 8 L (16.0-40.0) % Monocytes % (Manual) 7 (0.0-15.0) % Absolute Seg Neuts 12.6 H (1.4-5.7) Band Neutrophils # 0.8 Lymphocytes # (Manual) 1.3 (0.6-2.4) Monocytes # (Manual) 1.1 H (0.0-0.8) INR 1.07 APTT 29.4 (18.6-31.3) SEC D-Dimer, Quantitative 1.29 H (0.0-0.50) mg/L FEU Lactate (0.20-2.00) mmol/L Sodium 134 L (136-148) mmol/L Potassium 4.4 (3.5-5.1) mmol/L Chloride 100 (98-107) mmol/L Carbon Dioxide 23.8 (21.0-32.0) mmol/L BUN 11 (7.0-18.0) mg/dL Creatinine 1.2 (0.8-1.3) mg/dL Est Cr Clr Drug Dosing 88.92 mL/min Estimated GFR (MDRD) > 60.0 ml/min Glucose 118 H (74-106) mg/dL Calcium 9.1 (8.5-10.1) mg/dL Magnesium 2.2 (1.8-2.4) mg/dL Total Bilirubin 0.8 (0.2-1.0) mg/dL AST 46 H (15-37) IU/L ALT 128 H (14-63) IU/L Alkaline Phosphatase 88 (46-116) U/L Troponin I < 0.050 (0.000-0.056) ng/mL B-Natriuretic Peptide (<100) PG/ML Total Protein 7.8 (6.4-8.2) g/dL Albumin 3.4 (3.4-5.0) g/dL Globulin 4.4 H (2.6-4.0) g/dL Albumin/Globulin Ratio 0.8 L (0.9-1.6) TSH 3rd Generation 1.84 (0.36-3.74) uIU/mL 11/07/20 11/07/20 Range/Units 09:32 10:08 WBC (4.0-11.0) K/uL RBC (4.50-5.90) M/uL Hgb (13.0-17.0) g/dL Hct (38.0-50.0) % MCV (80.0-98.0) fL MCH (27.0-32.0) pg MCHC (31.0-37.0) g/dL RDW Std Deviation (28.0-62.0) fl RDW Coeff of Carolyn (11.0-15.0) % Plt Count (150-400) K/uL MPV (7.40-12.00) fL Add Manual Diff Neutrophils % (Manual) (48.0-80.0) % Band Neutrophils % % Lymphocytes % (Manual) (16.0-40.0) % Monocytes % (Manual) (0.0-15.0) % Absolute Seg Neuts (1.4-5.7) Band Neutrophils # Lymphocytes # (Manual) (0.6-2.4) Monocytes # (Manual) (0.0-0.8) INR APTT (18.6-31.3) SEC D-Dimer, Quantitative (0.0-0.50) mg/L FEU Lactate 1.2 (0.20-2.00) mmol/L Sodium (136-148) mmol/L Potassium (3.5-5.1) mmol/L Chloride (98-107) mmol/L Carbon Dioxide (21.0-32.0) mmol/L BUN (7.0-18.0) mg/dL Creatinine (0.8-1.3) mg/dL Est Cr Clr Drug Dosing mL/min Estimated GFR (MDRD) ml/min Glucose (74-106) mg/dL Calcium (8.5-10.1) mg/dL Magnesium (1.8-2.4) mg/dL Total Bilirubin (0.2-1.0) mg/dL AST (15-37) IU/L ALT (14-63) IU/L Alkaline Phosphatase (46-116) U/L Troponin I (0.000-0.056) ng/mL B-Natriuretic Peptide 19 (<100) PG/ML Total Protein (6.4-8.2) g/dL Albumin (3.4-5.0) g/dL Globulin (2.6-4.0) g/dL Albumin/Globulin Ratio (0.9-1.6) TSH 3rd Generation (0.36-3.74) uIU/mL Meds: Medications Generic Name Dose Route Start Last Admin Trade Name Freq PRN Reason Stop Dose Admin Diltiazem HCl 100 mg/ Sodium 100 mls @ 5 mls/hr 11/07/20 10:30 11/07/20 11:41 Chloride IV 10 mg/hr NOW MICKI 10 mls/hr Titration Protocol 5 MG/HR Sodium Chloride 10 ml 11/07/20 09:41 11/07/20 10:04 Sodium Chloride 0.9% 10 Ml Syringe FLUSH 10 ml ASDIRECTED PRN Administration Keep Vein Open Sodium Chloride 2.5 ml 11/07/20 09:41 11/07/20 10:04 Sodium Chloride 0.9% 2.5 Ml Syringe FLUSH 2.5 ml ASDIRECTED PRN Administration Keep Vein Open Discontinued Medications Generic Name Dose Route Start Last Admin Trade Name Bob PRN Reason Stop Dose Admin Diltiazem HCl 20 mg 11/07/20 09:42 11/07/20 10:04 Diltiazem 25 Mg/5 Ml Sdv IVPUSH 11/07/20 09:43 20 mg ONETIME ONE Administration Diltiazem HCl 5 mg 11/07/20 11:32 11/07/20 11:39 Diltiazem 25 Mg/5 Ml Sdv IVPUSH 11/07/20 11:33 5 mg ONETIME ONE Administration Sodium Chloride 1,000 mls @ 999 mls/hr 11/07/20 09:41 11/07/20 10:04 Normal Saline IV 11/07/20 10:41 999 mls/hr .Bolus ONE Administration Sodium Chloride Confirm 11/07/20 10:23 11/07/20 11:17 Normal Saline Administered 11/07/20 10:24 Not Given Dose 100 mls @ as directed .ROUTE .STK-MED ONE Sodium Chloride Confirm 11/07/20 10:27 11/07/20 11:17 Normal Saline Administered 11/07/20 10:28 Not Given Dose 100 mls @ as directed .ROUTE .STK-MED ONE Morphine Sulfate 4 mg 11/07/20 09:49 11/07/20 10:01 Morphine 4 Mg/Ml Syringe IVPUSH 11/07/20 09:50 4 mg ONETIME ONE Administration - Re-Assessments/Exams Free Text/Narrative Re-Assessment/Exam: 11/07/20 09:44 EKG remarkable for atrial fibrillation with rapid ventricular response. Will get labs including a D-dimer to screen for pulmonary embolism. Will give diltiazem 20 mg IV and reassess. 11/07/20 10:18 Patient's heart rate in the low 100s after Cardizem bolus. His blood pressure remains normotensive. 11/07/20 10:38 Chest x-ray reveals worsening of pneumonia. We will follow-up CT imaging and dispo patient. 11/07/20 12:21 CT imaging does not reveal any evidence of pulmonary embolism but does show worsening Covid pneumonia. Patient to be admitted to hospitalist service for further work-up and management. Departure - Departure Time of Disposition: 12:21 Disposition: Admitted As Inpatient 65 Condition: Fair Clinical Impression: COVID-19, Atrial fibrillation with RVR - Discharge Information Referrals: PCP,None [Primary Care Provider] - Critical Care Note - Critical Care Note Total Time (mins): 35 Sepsis Event Note (ED) - Focused Exam Vital Signs: Vital Signs Temp Pulse Resp BP Pulse Ox 11/07/20 12:08 86 18 130/88 97 11/07/20 11:53 90 20 123/87 97 11/07/20 11:38 115 H 20 142/82 H 96 11/07/20 11:12 130 H 26 H 134/98 H 96 11/07/20 10:42 121 H 20 131/92 H 98 11/07/20 10:38 125 H 24 H 136/98 H 96 11/07/20 10:23 112 H 20 128/95 H 98 11/07/20 10:11 104 H 22 H 124/82 97 11/07/20 10:09 160 H 24 H 126/75 97 11/07/20 10:01 159 H 24 H 111/85 97 11/07/20 09:43 98.6 F 115 H 24 H 135/87 97 - My Orders Last 24 Hours: My Active Orders 11/07/20 09:40 EKG 12 Lead [EKG Documentation Completion] [RC] ROUTINE 11/07/20 09:41 Cardiac Monitoring [RC] . DIRECTED Pulse Oximetry [RC] ASDIRECTED Sodium Chloride 0.9% [Saline Flush] 10 ml FLUSH ASDIRECTED PRN Sodium Chloride 0.9% [Saline Flush] 2.5 ml FLUSH ASDIRECTED PRN Saline Lock Insert [OM.PC] Stat 11/07/20 10:30 Diltiazem [Cardizem] 100 mg Sodium Chloride 0.9% [Normal Saline] 100 ml IV NOW 11/07/20 11:50 EKG Documentation Completion [RC] STAT 11/07/20 12:20 Patient Status [ADT] Routine - Assessment/Plan Last 24 Hours: My Active Orders 11/07/20 09:40 EKG 12 Lead [EKG Documentation Completion] [RC] ROUTINE 11/07/20 09:41 Cardiac Monitoring [RC] . DIRECTED Pulse Oximetry [RC] ASDIRECTED Sodium Chloride 0.9% [Saline Flush] 10 ml FLUSH ASDIRECTED PRN Sodium Chloride 0.9% [Saline Flush] 2.5 ml FLUSH ASDIRECTED PRN Saline Lock Insert [OM.PC] Stat 11/07/20 10:30 Diltiazem [Cardizem] 100 mg Sodium Chloride 0.9% [Normal Saline] 100 ml IV NOW 11/07/20 11:50 EKG Documentation Completion [RC] STAT 11/07/20 12:20 Patient Status [ADT] Routine
[2020-11-07] MEDS ORDERED: Sodium Chloride 0.9% 1,000 ML IV ONE (09:41)
[2020-11-07] MEDS ORDERED: Sodium Chloride 0.9% 2.5 ML Syringe FLUSH PRN (09:41)
[2020-11-07] MEDS ORDERED: Sodium Chloride 0.9% 10 ML Syringe FLUSH PRN (09:41)
[2020-11-07] MEDS ORDERED: Diltiazem 25 MG/5 ML SDV IVPUSH ONE ×2 (09:42→11:32)
[2020-11-07] MEDS ORDERED: Morphine 4 MG/ML Syringe IVPUSH ONE (09:49)
[2020-11-07] MEDS ORDERED: niCARdipine/Normal Saline 40 MG/200 ML BAG IV SCH (10:00)
[2020-11-07 10:16] LABS: BLOOD UREA NITROGEN,BUN 11 mg/dL (7.0-18.0); CARBON DIOXIDE,CO2 23.8 mmol/L (21.0-32.0); CHLORIDE,CL 100 mmol/L (98-107); GLUCOSE RANDOM 118 mg/dL (74-106); POTASSIUM,K 4.4 mmol/L (3.5-5.1); SODIUM,NA 134 mmol/L (136-148)
[2020-11-07] MEDS ORDERED: Sodium Chloride 0.9% 100 ML ONE ×2 (10:23→10:27)
[2020-11-07] MEDS ORDERED: Diltiazem 100 MG in Sodium Chloride 0.9% 100 ML IV SCH (10:30)
--- NOTE | 2020-11-07 10:33 | CR ---
INDICATION: Fibrillation. Worsening SOB. Recent COVID. TECHNIQUE: Upright portable AP image of the chest. COMPARISON: Chest CT of 10/23/2020. FINDINGS: Shallow inspiration with diffuse infiltrates are again demonstrated, consistent with COVID-19 pneumonia. No pleural effusion. Heart size within normal limits. Pulmonary veins cannot be assessed due to the infiltrates. No significant bony abnormality. IMPRESSION: Shallow inspiration with diffuse infiltrates, consistent with COVID-19 pneumonia. Dictated by Sebastien Perez MD @ Nov 07 2020 10:29AM Signed by Dr. Sebastien Perez @ Nov 07 2020 10:30AM
--- NOTE | 2020-11-07 12:07 | CT ---
INDICATION: SOB. COVID positive 10/10/2020. rule out pulmonary embolism. TECHNIQUE: Volumetric helical scanning of the thorax was performed during infusion of 100 cc of Isovue 370 contrast material IV, timing optimized for pulmonary arterial opacification. Coronal and sagittal reconstructions were obtained. COMPARISON: Chest CT of 10/23/2020 FINDINGS: The images are of acceptable quality and demonstrate uniform vascular enhancement within the pulmonary arteries. No pulmonary arterial filling defect is identified. The heart size is normal. Scattered infiltrates due to COVID-19 pneumonia are now smaller but greater in density. No airway abnormality or pleural effusion is evident. No mediastinal or hilar lymphadenopathy is apparent. Images of the upper abdomen are unremarkable. IMPRESSION: 1. Negative for pulmonary embolism. 2. Scattered infiltrates due to COVID-19 pneumonia now smaller but greater in density. Please note that all CT scans at this facility use dose modulation, iterative reconstruction, and/or weight-based dosing when appropriate to reduce radiation dose to as low as reasonably achievable. Dictated by Sebastien Perez MD @ Nov 07 2020 12:01PM Signed by Dr. Sebastien Perez @ Nov 07 2020 12:05PM
[2020-11-07] MEDS ORDERED: Dexamethasone 10 MG/ML SDV IVPUSH ONE (12:21)
[2020-11-07] MEDS ORDERED: Diltiazem 180 MG Cap.CD PO ONE (12:40)
--- NOTE | 2020-11-07 12:55 | PCM.HP.2 ---
H&P History of Present Illness - General Date of Service: 11/07/20 Admit Problem/Dx: Admission Diagnosis/Problem Admission Diagnosis/Problem Shortness of breath - History of Present Illness Initial Comments - Free Text/Narative: 40 yo male with pmh of COVID-19 infection. PAtient was discharged ten days ago. During that hospitalization he completed 5 days of remdesivir. He did developed a.fib with RVR and was discharged on diltiazem. PAtient reports he has been taking his medication but did not take any diltiazem this morning. He has been using 3 liters of [place] Oxygen at home. He reports one day history of increasing shortness of breath and nonproductive cough. Patient reports get short of breath walking to bathroom. In the ED he was noted to be tachycardic with HR in the 160s. Patient was given dexamethasone placed on diltiazem drip which controlled his HR and patient feels much better. CT ches angio reports no PE. Bilateral opacities are smaller but more dense compared to prior CT. Right abdominal Pain Score (Numeric/FACES): 7 - Related Data Allergies/Adverse Reactions: Allergies Allergy/AdvReac Type Severity Reaction Status Date / Time No Known Allergies Allergy Verified 11/07/20 09:42 Home Medications: Home Meds Aspirin 81 mg PO DAILY 30 Days #30 tab.chew 10/27/20 [Rx] dilTIAZem HCL [Diltiazem 24Hr ER] 120 mg PO DAILY 14 Days #14 cap.er.24h 10/27/20 [Rx] Clarithromycin [Clarithromycin ER] 500 mg PO DAILY 11/07/20 [History] Past Medical History - Past Health History Medical/Surgical History: Denies Medical/Surgical History Cardiovascular History: Reports: Afib - Infectious Disease History Infectious Disease History: Reports: Novel Coronavirus Social & Family History - Family History Family Medical History: No Pertinent Family History - Tobacco Use Tobacco Use Status *Q: Never Tobacco User - Caffeine Use Caffeine Use: Reports: None - Recreational Drug Use Recreational Drug Use: No H&P Review of Systems - Review of Systems: Review Of Systems: Comprehensive ROS is negative, except as noted in HPI. Exam - Exam Exam: See Below - Vital Signs Vital Signs: Last Vital Signs Temp 37.0 C 11/07/20 09:43 Pulse 86 11/07/20 12:08 Resp 18 11/07/20 12:08 BP 130/88 11/07/20 12:08 Pulse Ox 97 11/07/20 12:08 Weight: 86.183 kg - Exam General: Alert, Oriented HEENT: Mucosa Moist & [place] Neck: Supple Lungs: Clear to Auscultation, Normal Respiratory Effort Cardiovascular: Regular Rhythm, Irregular Rhythm GI/Abdominal Exam: Soft, Non-Tender, No Distention Extremities: Non-Tender, No Pedal Edema Skin: Warm, Dry, Intact Neurological: Strength Equal Bilateral. No: Focal Deficit - Patient Data Lab Results Last 24 hrs: Laboratory Results - last 24 hr 11/07/20 11/07/20 11/07/20 Range/Units 09:32 09:32 09:32 WBC 15.77 H (4.0-11.0) K/uL RBC 5.55 (4.50-5.90) M/uL Hgb 16.4 (13.0-17.0) g/dL Hct 47.8 (38.0-50.0) % MCV 86.1 (80.0-98.0) fL MCH 29.5 (27.0-32.0) pg MCHC 34.3 (31.0-37.0) g/dL RDW Std Deviation 39.4 (28.0-62.0) fl RDW Coeff of Carolyn 13 (11.0-15.0) % Plt Count 399 (150-400) K/uL MPV 9.80 (7.40-12.00) fL Add Manual Diff YES Neutrophils % (Manual) 80 (48.0-80.0) % Band Neutrophils % 5 % Lymphocytes % (Manual) 8 L (16.0-40.0) % Monocytes % (Manual) 7 (0.0-15.0) % Absolute Seg Neuts 12.6 H (1.4-5.7) Band Neutrophils # 0.8 Lymphocytes # (Manual) 1.3 (0.6-2.4) Monocytes # (Manual) 1.1 H (0.0-0.8) INR 1.07 APTT 29.4 (18.6-31.3) SEC D-Dimer, Quantitative 1.29 H (0.0-0.50) mg/L FEU Lactate (0.20-2.00) mmol/L Sodium 134 L (136-148) mmol/L Potassium 4.4 (3.5-5.1) mmol/L Chloride 100 (98-107) mmol/L Carbon Dioxide 23.8 (21.0-32.0) mmol/L BUN 11 (7.0-18.0) mg/dL Creatinine 1.2 (0.8-1.3) mg/dL Est Cr Clr Drug Dosing 88.92 mL/min Estimated GFR (MDRD) > 60.0 ml/min Glucose 118 H (74-106) mg/dL Calcium 9.1 (8.5-10.1) mg/dL Magnesium 2.2 (1.8-2.4) mg/dL Total Bilirubin 0.8 (0.2-1.0) mg/dL AST 46 H (15-37) IU/L ALT 128 H (14-63) IU/L Alkaline Phosphatase 88 (46-116) U/L Troponin I < 0.050 (0.000-0.056) ng/mL B-Natriuretic Peptide (<100) PG/ML Total Protein 7.8 (6.4-8.2) g/dL Albumin 3.4 (3.4-5.0) g/dL Globulin 4.4 H (2.6-4.0) g/dL Albumin/Globulin Ratio 0.8 L (0.9-1.6) TSH 3rd Generation 1.84 (0.36-3.74) uIU/mL 11/07/20 11/07/20 Range/Units 09:32 10:08 WBC (4.0-11.0) K/uL RBC (4.50-5.90) M/uL Hgb (13.0-17.0) g/dL Hct (38.0-50.0) % MCV (80.0-98.0) fL MCH (27.0-32.0) pg MCHC (31.0-37.0) g/dL RDW Std Deviation (28.0-62.0) fl RDW Coeff of Carolyn (11.0-15.0) % Plt Count (150-400) K/uL MPV (7.40-12.00) fL Add Manual Diff Neutrophils % (Manual) (48.0-80.0) % Band Neutrophils % % Lymphocytes % (Manual) (16.0-40.0) % Monocytes % (Manual) (0.0-15.0) % Absolute Seg Neuts (1.4-5.7) Band Neutrophils # Lymphocytes # (Manual) (0.6-2.4) Monocytes # (Manual) (0.0-0.8) INR APTT (18.6-31.3) SEC D-Dimer, Quantitative (0.0-0.50) mg/L FEU Lactate 1.2 (0.20-2.00) mmol/L Sodium (136-148) mmol/L Potassium (3.5-5.1) mmol/L Chloride (98-107) mmol/L Carbon Dioxide (21.0-32.0) mmol/L BUN (7.0-18.0) mg/dL Creatinine (0.8-1.3) mg/dL Est Cr Clr Drug Dosing mL/min Estimated GFR (MDRD) ml/min Glucose (74-106) mg/dL Calcium (8.5-10.1) mg/dL Magnesium (1.8-2.4) mg/dL Total Bilirubin (0.2-1.0) mg/dL AST (15-37) IU/L ALT (14-63) IU/L Alkaline Phosphatase (46-116) U/L Troponin I (0.000-0.056) ng/mL B-Natriuretic Peptide 19 (<100) PG/ML Total Protein (6.4-8.2) g/dL Albumin (3.4-5.0) g/dL Globulin (2.6-4.0) g/dL Albumin/Globulin Ratio (0.9-1.6) TSH 3rd Generation (0.36-3.74) uIU/mL Result Diagrams: 11/07/20 09:32 11/07/20 09:32 Sepsis Event Note - Evaluation Sepsis Screening Result: Possible Sepsis Risk - Focused Exam Vital Signs: Vital Signs Temp Pulse Resp BP Pulse Ox 11/07/20 12:08 86 18 130/88 97 11/07/20 11:53 90 20 123/87 97 11/07/20 11:38 115 H 20 142/82 H 96 11/07/20 11:12 130 H 26 H 134/98 H 96 11/07/20 10:42 121 H 20 131/92 H 98 11/07/20 10:38 125 H 24 H 136/98 H 96 11/07/20 10:23 112 H 20 128/95 H 98 11/07/20 10:11 104 H 22 H 124/82 97 11/07/20 10:09 160 H 24 H 126/75 97 11/07/20 10:01 159 H 24 H 111/85 97 11/07/20 09:43 37.0 C 115 H 24 H 135/87 97 Problem List Initiated/Reviewed/Updated: Yes Orders Last 24hrs: Active Orders 24 hr Category Date Time Status Patient Status [ADT] Routine ADT 11/07/20 12:20 Active Cardiac Monitoring [RC] . DIRECTED Care 11/07/20 09:41 Active EKG 12 Lead [EKG Documentation Completion] [RC] ROUTINE Care 11/07/20 09:40 Active EKG Documentation Completion [RC] STAT Care 11/07/20 11:50 Active Oxygen Therapy [RC] PRN Care 11/07/20 12:48 Ordered Pulse Oximetry [RC] ASDIRECTED Care 11/07/20 09:41 Active Up ad Saima [RC] ASDIRECTED Care 11/07/20 12:48 Ordered VTE/DVT Education [RC] PER UNIT ROUTINE Care 11/07/20 12:48 Ordered Vital Signs [RC] Q4H Care 11/07/20 12:48 Ordered Regular Diet [DIET] Diet 11/07/20 Breakfast Ordered CBC WITH AUTO DIFF [HEME] AM Lab 11/08/20 05:11 Ordered COMPREHENSIVE METABOLIC PN,CMP [CHEM] AM Lab 11/08/20 05:11 Ordered MAGNESIUM [CHEM] AM Lab 11/08/20 05:11 Ordered Acetaminophen [TylenoL] Med 11/07/20 12:48 Ordered 650 mg PO Q4H PRN Aspirin Med 11/08/20 09:00 Ordered 81 mg PO DAILY Azithromycin [Zithromax] Med 11/07/20 13:00 Ordered 500 mg PO Q24H Diltiazem IR [Cardizem] Med 11/07/20 13:00 Ordered 30 mg PO Q6HR Diltiazem [Cardizem] 100 mg Med 11/07/20 10:30 Active Sodium Chloride 0.9% [Normal Saline] 100 ml IV NOW Enoxaparin [Lovenox] Med 11/07/20 13:00 Ordered 40 mg SUBCUT Q24H Sodium Chloride 0.9% [Saline Flush] Med 11/07/20 09:41 Active 10 ml FLUSH ASDIRECTED PRN Sodium Chloride 0.9% [Saline Flush] Med 11/07/20 09:41 Active 2.5 ml FLUSH ASDIRECTED PRN cefTRIAXone [Rocephin] 1 gm Med 11/07/20 13:00 Ordered Sodium Chloride 0.9% [Normal Saline] 50 ml IV Q24H dexAMETHasone Med 11/08/20 09:00 Ordered 6 mg PO DAILY Saline Lock Insert [OM.PC] Stat Oth 11/07/20 09:41 Ordered Resuscitation Status Routine Resus Stat 11/07/20 12:48 Ordered Medication Orders Aspirin (Aspirin 81 Mg Tab.Chew) 81 mg PO DAILY MICKI Azithromycin (Azithromycin 250 Mg Tab) 500 mg PO Q24H MICKI Dexamethasone (Dexamethasone 4 Mg Tab) 6 mg PO DAILY MICKI Diltiazem HCl (Diltiazem Ir 30 Mg Tab) 30 mg PO Q6HR MICKI Diltiazem HCl 100 mg/ Sodium (Chloride) 100 mls @ 5 mls/hr IV NOW MICKI; Protocol Last Titration: 11/07/20 11:41 Dose: 10 mg/hr, 10 mls/hr Documented by: [id number] Admin: 11/07/20 10:34 Dose: 5 mg/hr, 5 mls/hr Documented by: [id number] Ceftriaxone Sodium 1 gm/ (Sodium Chloride) 50 mls @ 100 mls/hr IV Q24H MICKI Sodium Chloride (Sodium Chloride 0.9% 10 Ml Syringe) 10 ml FLUSH ASDIRECTED PRN PRN Reason: Keep Vein Open Last Admin: 11/07/20 10:04 Dose: 10 ml Documented by: [id number] Sodium Chloride (Sodium Chloride 0.9% 2.5 Ml Syringe) 2.5 ml FLUSH ASDIRECTED PRN PRN Reason: Keep Vein Open Last Admin: 11/07/20 10:04 Dose: 2.5 ml Documented by: [id number] Assessment/Plan Comment:: 40 yo male with pmh of COVID pneumonia presenting with shortness of breath, a.fib with RVR and evolving infiltrates on CT scan of chest. A.fib with RVR: continue diltiazem drip, will restart oral Diltiazem, resume ASA. Acute/subacute respiratory failure: continue supplemental O2 via [place] Pneumonia: Will treat with Rocephin, azithromycin and has received dexamethasone in ED DVT prophylaxis: lovenox
[2020-11-07] MEDS ORDERED: Acetaminophen/oxyCODONE 325-5 MG Tab PO ONE (12:59)
[2020-11-07] MEDS ORDERED: Diltiazem IR 30 MG Tab PO SCH (13:00)
[2020-11-07] MEDS ORDERED: cefTRIAXone 1 GM in Sodium Chloride 0.9% 50 ML IV SCH (13:00)
[2020-11-07] MEDS ORDERED: Iopamidol 755 MG/ML 500 ML Multipack Bottle IVPUSH STA (13:17)
[2020-11-07] MEDS: Azithromycin 250 MG Tab PO SCH (14:42)
[2020-11-07] MEDS: cefTRIAXone 1 GM in Premix Bag 1 BAG IV SCH (14:51)
[2020-11-07] MEDS: Enoxaparin 40 MG/0.4 ML Syringe SUBCUT SCH (14:54)
[2020-11-07] MEDS: Benzonatate 100 MG Cap PO PRN (15:52)
[2020-11-07] MEDS: Acetaminophen 325 MG Tab PO PRN (15:52)
[2020-11-07] MEDS: Codeine/guaiFENesin 10-100 MG/5 ML Syrup 5 ML Cup PO PRN ×2 (17:46→23:46)
[2020-11-07] MEDS: Diltiazem IR 30 MG Tab PO SCH (19:36)
[2020-11-07] MEDS ORDERED: Morphine 2 MG/ML SYRINGE IVPUSH ONE (23:32)
--- NOTE | 2020-11-07 23:35 | PN ---
THC Physician - Brief Progress [id number]/05/2021 23:28[facility] Tellez Saranya zaldivar, FANI - RICH (SRINIVASA) - CHE FLAHERTYDate of Service 11/07/2020 23:28HPI/Events of Note Case discussed with RN. 40 year old M with previous covid/afib, admitted with PNA/afib RVR, tr eated with cardizem/decadron/abx/supplemental O2. Recs include: hemodynamic monitoring, HR control- PO cardizem, lovenox, consider cardio eval when available, supplemental O2 PRN, decadron, antipertuss tamara PRN, GI and DVT prophylaxis, abx, follow cultures, replace lytes as needed, glycemic monitoring, pain control- will trial morphine now.Interventions Minor-Communication with other healthcare provid ers and/or family
[2020-11-08] MEDS: Benzonatate 100 MG Cap PO PRN ×2 (01:08→08:30)
[2020-11-08] MEDS: Diltiazem IR 30 MG Tab PO SCH (01:08)
[2020-11-08 05:23] LABS: BLOOD UREA NITROGEN,BUN 11 mg/dL (7.0-18.0); CARBON DIOXIDE,CO2 26.4 mmol/L (21.0-32.0); CHLORIDE,CL 101 mmol/L (98-107); GLUCOSE RANDOM 139 mg/dL (74-106); POTASSIUM,K 4.5 mmol/L (3.5-5.1); SODIUM,NA 135 mmol/L (136-148)
[2020-11-08] MEDS: Codeine/guaiFENesin 10-100 MG/5 ML Syrup 5 ML Cup PO PRN ×4 (05:53→19:43)
[2020-11-08] MEDS: Diltiazem 120 MG Cap.CD PO SCH ×2 (05:59→08:30)
[2020-11-08] MEDS: Aspirin 81 MG Tab.Chew PO SCH (08:30)
[2020-11-08] MEDS: Dexamethasone 4 MG Tab PO SCH (08:30)
[2020-11-08] MEDS ORDERED: Sodium Chloride 0.9% 2.5 ML Syringe FLUSH PRN (08:58)
--- NOTE | 2020-11-08 09:05 | PCM.PN ---
- General Info Date of Service: 11/08/20 Admission Dx/Problem (Free Text): Admission Diagnosis/Problem Admission Diagnosis/Problem Shortness of breath Subjective Update: Reports he is feeling much better regarding his palpitations and heart rate. Reports that cough and shortness of breath continue. Reports Tessalon Perles definitely do not help with the cough. Feels slight improvement with Robitussin. Has been splinting due to right rib/flank pain especially when he coughs. Has been using I-S gets to about 1000. Denies any chest pain. Denies any abdominal pain nausea vomiting. He is eating and drinking well no diarrhea. Functional Status: Reports: Pain Controlled, Tolerating Diet, Ambulating, Urinating - Review of Systems General: Reports: Fatigue, Malaise HEENT: Reports: No Symptoms. Denies: Headaches, Sinus Congestion, Sore Throat, Visual Changes Pulmonary: Reports: Shortness of Breath, Pleuritic Chest Pain (With coughing), Cough (Nonproductive). Denies: Sputum, Hemoptysis, Wheezing Cardiovascular: Reports: No Symptoms. Denies: Chest Pain Gastrointestinal: Reports: No Symptoms. Denies: Abdominal Pain Genitourinary: Reports: No Symptoms. Denies: Dysuria, Frequency, Burning Musculoskeletal: Reports: No Symptoms Skin: Reports: No Symptoms Neurological: Reports: No Symptoms Psychiatric: Reports: No Symptoms - Patient Data Vitals - Most Recent: Last Vital Signs Temp 96.9 F 11/08/20 04:00 Pulse 77 11/08/20 08:30 Resp 18 11/08/20 07:00 BP 127/80 11/08/20 08:30 Pulse Ox 95 11/08/20 07:00 Weight - Most Recent: 86.999 kg I&O - Last 24 Hours: Intake & Output 11/07/20 11/08/20 11/08/20 22:59 06:59 14:59 Intake Total 2360 Output Total 2100 Balance 260 Lab Results Last 24 Hours: Laboratory Results - last 24 hr 11/07/20 11/07/20 11/07/20 Range/Units 09:32 09:32 09:32 WBC 15.77 H (4.0-11.0) K/uL RBC 5.55 (4.50-5.90) M/uL Hgb 16.4 (13.0-17.0) g/dL Hct 47.8 (38.0-50.0) % MCV 86.1 (80.0-98.0) fL MCH 29.5 (27.0-32.0) pg MCHC 34.3 (31.0-37.0) g/dL RDW Std Deviation 39.4 (28.0-62.0) fl RDW Coeff of Carolyn 13 (11.0-15.0) % Plt Count 399 (150-400) K/uL MPV 9.80 (7.40-12.00) fL Neut % (Auto) (48.0-80.0) % Lymph % (Auto) (16.0-40.0) % [place] % (Auto) (0.0-15.0) % Eos % (Auto) (0.0-7.0) % Baso % (Auto) (0.0-1.5) % Neut # (Auto) (1.4-5.7) K/uL Lymph # (Auto) (0.6-2.4) K/uL [place] # (Auto) (0.0-0.8) K/uL Eos # (Auto) (0.0-0.7) K/uL Baso # (Auto) (0.0-0.1) K/uL Add Manual Diff YES Neutrophils % (Manual) 80 (48.0-80.0) % Band Neutrophils % 5 % Lymphocytes % (Manual) 8 L (16.0-40.0) % Monocytes % (Manual) 7 (0.0-15.0) % Nucleated RBC % /100WBC Absolute Seg Neuts 12.6 H (1.4-5.7) Band Neutrophils # 0.8 Lymphocytes # (Manual) 1.3 (0.6-2.4) Monocytes # (Manual) 1.1 H (0.0-0.8) Nucleated RBCs # K/uL INR 1.07 APTT 29.4 (18.6-31.3) SEC D-Dimer, Quantitative 1.29 H (0.0-0.50) mg/L FEU Lactate (0.20-2.00) mmol/L Sodium 134 L (136-148) mmol/L Potassium 4.4 (3.5-5.1) mmol/L Chloride 100 (98-107) mmol/L Carbon Dioxide 23.8 (21.0-32.0) mmol/L BUN 11 (7.0-18.0) mg/dL Creatinine 1.2 (0.8-1.3) mg/dL Est Cr Clr Drug Dosing 88.92 mL/min Estimated GFR (MDRD) > 60.0 ml/min Glucose 118 H (74-106) mg/dL Calcium 9.1 (8.5-10.1) mg/dL Magnesium 2.2 (1.8-2.4) mg/dL Total Bilirubin 0.8 (0.2-1.0) mg/dL AST 46 H (15-37) IU/L ALT 128 H (14-63) IU/L Alkaline Phosphatase 88 (46-116) U/L Troponin I < 0.050 (0.000-0.056) ng/mL B-Natriuretic Peptide (<100) PG/ML Total Protein 7.8 (6.4-8.2) g/dL Albumin 3.4 (3.4-5.0) g/dL Globulin 4.4 H (2.6-4.0) g/dL Albumin/Globulin Ratio 0.8 L (0.9-1.6) TSH 3rd Generation 1.84 (0.36-3.74) uIU/mL 11/07/20 11/07/20 11/08/20 Range/Units 09:32 10:08 04:55 WBC 10.58 (4.0-11.0) K/uL RBC 4.91 (4.50-5.90) M/uL Hgb 14.6 (13.0-17.0) g/dL Hct 43.3 (38.0-50.0) % MCV 88.2 (80.0-98.0) fL MCH 29.7 (27.0-32.0) pg MCHC 33.7 (31.0-37.0) g/dL RDW Std Deviation 41.2 (28.0-62.0) fl RDW Coeff of Carolyn 13 (11.0-15.0) % Plt Count 348 (150-400) K/uL MPV 10.00 (7.40-12.00) fL Neut % (Auto) 82.4 H (48.0-80.0) % Lymph % (Auto) 10.7 L (16.0-40.0) % [place] % (Auto) 6.8 (0.0-15.0) % Eos % (Auto) 0.0 (0.0-7.0) % Baso % (Auto) 0.1 (0.0-1.5) % Neut # (Auto) 8.7 H (1.4-5.7) K/uL Lymph # (Auto) 1.1 (0.6-2.4) K/uL [place] # (Auto) 0.7 (0.0-0.8) K/uL Eos # (Auto) 0.0 (0.0-0.7) K/uL Baso # (Auto) 0.0 (0.0-0.1) K/uL Add Manual Diff Neutrophils % (Manual) (48.0-80.0) % Band Neutrophils % % Lymphocytes % (Manual) (16.0-40.0) % Monocytes % (Manual) (0.0-15.0) % Nucleated RBC % 0.0 /100WBC Absolute Seg Neuts (1.4-5.7) Band Neutrophils # Lymphocytes # (Manual) (0.6-2.4) Monocytes # (Manual) (0.0-0.8) Nucleated RBCs # 0 K/uL INR APTT (18.6-31.3) SEC D-Dimer, Quantitative (0.0-0.50) mg/L FEU Lactate 1.2 (0.20-2.00) mmol/L Sodium (136-148) mmol/L Potassium (3.5-5.1) mmol/L Chloride (98-107) mmol/L Carbon Dioxide (21.0-32.0) mmol/L BUN (7.0-18.0) mg/dL Creatinine (0.8-1.3) mg/dL Est Cr Clr Drug Dosing mL/min Estimated GFR (MDRD) ml/min Glucose (74-106) mg/dL Calcium (8.5-10.1) mg/dL Magnesium (1.8-2.4) mg/dL Total Bilirubin (0.2-1.0) mg/dL AST (15-37) IU/L ALT (14-63) IU/L Alkaline Phosphatase (46-116) U/L Troponin I (0.000-0.056) ng/mL B-Natriuretic Peptide 19 (<100) PG/ML Total Protein (6.4-8.2) g/dL Albumin (3.4-5.0) g/dL Globulin (2.6-4.0) g/dL Albumin/Globulin Ratio (0.9-1.6) TSH 3rd Generation (0.36-3.74) uIU/mL 11/08/20 Range/Units 04:55 WBC (4.0-11.0) K/uL RBC (4.50-5.90) M/uL Hgb (13.0-17.0) g/dL Hct (38.0-50.0) % MCV (80.0-98.0) fL MCH (27.0-32.0) pg MCHC (31.0-37.0) g/dL RDW Std Deviation (28.0-62.0) fl RDW Coeff of Carolyn (11.0-15.0) % Plt Count (150-400) K/uL MPV (7.40-12.00) fL Neut % (Auto) (48.0-80.0) % Lymph % (Auto) (16.0-40.0) % [place] % (Auto) (0.0-15.0) % Eos % (Auto) (0.0-7.0) % Baso % (Auto) (0.0-1.5) % Neut # (Auto) (1.4-5.7) K/uL Lymph # (Auto) (0.6-2.4) K/uL [place] # (Auto) (0.0-0.8) K/uL Eos # (Auto) (0.0-0.7) K/uL Baso # (Auto) (0.0-0.1) K/uL Add Manual Diff Neutrophils % (Manual) (48.0-80.0) % Band Neutrophils % % Lymphocytes % (Manual) (16.0-40.0) % Monocytes % (Manual) (0.0-15.0) % Nucleated RBC % /100WBC Absolute Seg Neuts (1.4-5.7) Band Neutrophils # Lymphocytes # (Manual) (0.6-2.4) Monocytes # (Manual) (0.0-0.8) Nucleated RBCs # K/uL INR APTT (18.6-31.3) SEC D-Dimer, Quantitative (0.0-0.50) mg/L FEU Lactate (0.20-2.00) mmol/L Sodium 135 L (136-148) mmol/L Potassium 4.5 (3.5-5.1) mmol/L Chloride 101 (98-107) mmol/L Carbon Dioxide 26.4 (21.0-32.0) mmol/L BUN 11 (7.0-18.0) mg/dL Creatinine 1.0 (0.8-1.3) mg/dL Est Cr Clr Drug Dosing 106.70 mL/min Estimated GFR (MDRD) > 60.0 ml/min Glucose 139 H (74-106) mg/dL Calcium 8.1 L (8.5-10.1) mg/dL Magnesium 2.4 (1.8-2.4) mg/dL Total Bilirubin 0.6 (0.2-1.0) mg/dL AST 21 (15-37) IU/L ALT 98 H (14-63) IU/L Alkaline Phosphatase 81 (46-116) U/L Troponin I (0.000-0.056) ng/mL B-Natriuretic Peptide (<100) PG/ML Total Protein 6.8 (6.4-8.2) g/dL Albumin 3.0 L (3.4-5.0) g/dL Globulin 3.8 (2.6-4.0) g/dL Albumin/Globulin Ratio 0.8 L (0.9-1.6) TSH 3rd Generation (0.36-3.74) uIU/mL Med Orders - Current: Current Medications Acetaminophen (Acetaminophen 325 Mg Tab) 650 mg PO Q4H PRN PRN Reason: Pain (Mild 1-3)/fever Last Admin: 11/07/20 15:52 Dose: 650 mg Documented by: Albuterol/Ipratropium (Albuterol/Ipratropium 4 Gm Inhalation [place]) 1 gm INH Q4H PRN PRN Reason: Dyspnea Aspirin (Aspirin 81 Mg Tab.Chew) 81 mg PO DAILY [facility] Last Admin: 11/08/20 08:30 Dose: 81 mg Documented by: Azithromycin (Azithromycin 250 Mg Tab) 500 mg PO Q24H [facility] Last Admin: 11/07/20 14:42 Dose: 500 mg Documented by: Benzonatate (Benzonatate 100 Mg Cap) 200 mg PO TID PRN PRN Reason: Cough Last Admin: 11/08/20 08:30 Dose: 200 mg Documented by: Dexamethasone (Dexamethasone 4 Mg Tab) 6 mg PO DAILY [facility] Last Admin: 11/08/20 08:30 Dose: 6 mg Documented by: Diltiazem HCl (Diltiazem 120 Mg Cap.Cd) 120 mg PO DAILY [facility] Last Admin: 11/08/20 08:30 Dose: 120 mg Documented by: Enoxaparin Sodium (Enoxaparin 40 Mg/0.4 Ml Syringe) 40 mg SUBCUT Q24H [facility] Last Admin: 11/07/20 14:54 Dose: 40 mg Documented by: Guaifenesin/Codeine Phosphate (Codeine/Guaifenesin 10-100 Mg/5 Ml Syrup 5 Ml Cup) 10 ml PO Q4H PRN PRN Reason: Cough Ceftriaxone Sodium/Dextrose 1 (gm/ Premix) 50 mls @ 100 mls/hr IV Q24H [facility] Last Admin: 11/07/20 14:51 Dose: 100 mls/hr Documented by: Sodium Chloride (Sodium Chloride 0.9% 2.5 Ml Syringe) 2.5 ml FLUSH ASDIRECTED PRN PRN Reason: Keep Vein Open Discontinued Medications Dexamethasone (Dexamethasone 10 Mg/Ml Sdv) 6 mg IVPUSH ONETIME ONE Stop: 11/07/20 12:22 Last Admin: 11/07/20 12:31 Dose: 6 mg Documented by: Diltiazem HCl (Diltiazem 25 Mg/5 Ml Sdv) 20 mg IVPUSH ONETIME ONE Stop: 11/07/20 09:43 Last Admin: 11/07/20 10:04 Dose: 20 mg Documented by: Diltiazem HCl (Diltiazem 25 Mg/5 Ml Sdv) 5 mg IVPUSH ONETIME ONE Stop: 11/07/20 11:33 Last Admin: 11/07/20 11:39 Dose: 5 mg Documented by: Diltiazem HCl (Diltiazem 180 Mg Cap.Cd) 180 mg PO ONETIME ONE Stop: 11/07/20 12:41 Last Admin: 11/07/20 19:23 Dose: Not Given Documented by: Diltiazem HCl (Diltiazem Ir 30 Mg Tab) 30 mg PO Q6HR [facility] Last Admin: 11/07/20 14:40 Dose: 30 mg Documented by: Diltiazem HCl (Diltiazem Ir 30 Mg Tab) 30 mg PO Q6H [facility] Last Admin: 11/08/20 01:08 Dose: 30 mg Documented by: Guaifenesin/Codeine Phosphate (Codeine/Guaifenesin 10-100 Mg/5 Ml Syrup 5 Ml Cup) 10 ml PO Q6H PRN PRN Reason: Cough Last Admin: 11/08/20 05:53 Dose: 10 ml Documented by: Sodium Chloride (Normal Saline) 1,000 mls @ 999 mls/hr IV .Bolus ONE Stop: 11/07/20 10:41 Last Admin: 11/07/20 10:04 Dose: 999 mls/hr Documented by: Diltiazem HCl 100 mg/ Sodium (Chloride) 100 mls @ 5 mls/hr IV NOW MICKI; Protocol Last Titration: 11/07/20 14:42 Dose: 0 mg/hr, 0 mls/hr Documented by: Sodium Chloride (Normal Saline) Confirm Administered Dose 100 mls @ as directed .ROUTE .STK-MED ONE Stop: 11/07/20 10:24 Last Admin: 11/07/20 11:17 Dose: Not Given Documented by: Sodium Chloride (Normal Saline) Confirm Administered Dose 100 mls @ as directed .ROUTE .STK-MED ONE Stop: 11/07/20 10:28 Last Admin: 11/07/20 11:17 Dose: Not Given Documented by: Iopamidol (Iopamidol 755 Mg/Ml 500 Ml Multipack Bottle) 100 ml IVPUSH ONETIME STA Stop: 11/07/20 13:18 Last Admin: 11/07/20 13:19 Dose: 100 ml Documented by: Morphine Sulfate (Morphine 4 Mg/Ml Syringe) 4 mg IVPUSH ONETIME ONE Stop: 11/07/20 09:50 Last Admin: 11/07/20 10:01 Dose: 4 mg Documented by: Morphine Sulfate (Morphine 2 Mg/Ml Syringe) 1 mg IVPUSH ONETIME ONE Stop: 11/07/20 23:33 Last Admin: 11/08/20 01:09 Dose: 1 mg Documented by: Oxycodone/Acetaminophen (Acetaminophen/Oxycodone 325-5 Mg Tab) 1 tab PO ONETIME ONE Stop: 11/07/20 13:00 Last Admin: 11/07/20 13:03 Dose: 1 tab Documented by: Sodium Chloride (Sodium Chloride 0.9% 10 Ml Syringe) 10 ml FLUSH ASDIRECTED PRN PRN Reason: Keep Vein Open Last Admin: 11/07/20 10:04 Dose: 10 ml Documented by: Sodium Chloride (Sodium Chloride 0.9% 2.5 Ml Syringe) 2.5 ml FLUSH ASDIRECTED PRN PRN Reason: Keep Vein Open Last Admin: 11/07/20 10:04 Dose: 2.5 ml Documented by: - Exam Quality Assessment: Supplemental Oxygen (2 L nasal cannula), DVT Prophylaxis (Lovenox) General: Alert, Oriented, Cooperative, No Acute Distress Neck: Supple Lungs: Decreased Breath Sounds (Bibasilar), Other (Significant cough that is dry and nonproductive). No: Normal Respiratory Effort (Slight dyspnea with speaking) Cardiovascular: Regular Rate, Regular Rhythm, No Murmurs. No: Irregular Rhythm, Tachycardia GI/Abdominal Exam: Normal Bowel Sounds, Soft, Non-Tender Extremities: Normal Inspection, Normal Range of Motion, Non-Tender, No Pedal Edema Wound/Incisions: Healing Well Neurological: No New Focal Deficit Psy/Mental Status: Alert, Normal Affect, Normal Mood - Patient Data Lab Results Last 24 hrs: Laboratory Results - last 24 hr 11/07/20 11/07/20 11/07/20 Range/Units 09:32 09:32 09:32 WBC 15.77 H (4.0-11.0) K/uL RBC 5.55 (4.50-5.90) M/uL Hgb 16.4 (13.0-17.0) g/dL Hct 47.8 (38.0-50.0) % MCV 86.1 (80.0-98.0) fL MCH 29.5 (27.0-32.0) pg MCHC 34.3 (31.0-37.0) g/dL RDW Std Deviation 39.4 (28.0-62.0) fl RDW Coeff of Carolyn 13 (11.0-15.0) % Plt Count 399 (150-400) K/uL MPV 9.80 (7.40-12.00) fL Neut % (Auto) (48.0-80.0) % Lymph % (Auto) (16.0-40.0) % [place] % (Auto) (0.0-15.0) % Eos % (Auto) (0.0-7.0) % Baso % (Auto) (0.0-1.5) % Neut # (Auto) (1.4-5.7) K/uL Lymph # (Auto) (0.6-2.4) K/uL [place] # (Auto) (0.0-0.8) K/uL Eos # (Auto) (0.0-0.7) K/uL Baso # (Auto) (0.0-0.1) K/uL Add Manual Diff YES Neutrophils % (Manual) 80 (48.0-80.0) % Band Neutrophils % 5 % Lymphocytes % (Manual) 8 L (16.0-40.0) % Monocytes % (Manual) 7 (0.0-15.0) % Nucleated RBC % /100WBC Absolute Seg Neuts 12.6 H (1.4-5.7) Band Neutrophils # 0.8 Lymphocytes # (Manual) 1.3 (0.6-2.4) Monocytes # (Manual) 1.1 H (0.0-0.8) Nucleated RBCs # K/uL INR 1.07 APTT 29.4 (18.6-31.3) SEC D-Dimer, Quantitative 1.29 H (0.0-0.50) mg/L FEU Lactate (0.20-2.00) mmol/L Sodium 134 L (136-148) mmol/L Potassium 4.4 (3.5-5.1) mmol/L Chloride 100 (98-107) mmol/L Carbon Dioxide 23.8 (21.0-32.0) mmol/L BUN 11 (7.0-18.0) mg/dL Creatinine 1.2 (0.8-1.3) mg/dL Est Cr Clr Drug Dosing 88.92 mL/min Estimated GFR (MDRD) > 60.0 ml/min Glucose 118 H (74-106) mg/dL Calcium 9.1 (8.5-10.1) mg/dL Magnesium 2.2 (1.8-2.4) mg/dL Total Bilirubin 0.8 (0.2-1.0) mg/dL AST 46 H (15-37) IU/L ALT 128 H (14-63) IU/L Alkaline Phosphatase 88 (46-116) U/L Troponin I < 0.050 (0.000-0.056) ng/mL B-Natriuretic Peptide (<100) PG/ML Total Protein 7.8 (6.4-8.2) g/dL Albumin 3.4 (3.4-5.0) g/dL Globulin 4.4 H (2.6-4.0) g/dL Albumin/Globulin Ratio 0.8 L (0.9-1.6) TSH 3rd Generation 1.84 (0.36-3.74) uIU/mL 11/07/20 11/07/20 11/08/20 Range/Units 09:32 10:08 04:55 WBC 10.58 (4.0-11.0) K/uL RBC 4.91 (4.50-5.90) M/uL Hgb 14.6 (13.0-17.0) g/dL Hct 43.3 (38.0-50.0) % MCV 88.2 (80.0-98.0) fL MCH 29.7 (27.0-32.0) pg MCHC 33.7 (31.0-37.0) g/dL RDW Std Deviation 41.2 (28.0-62.0) fl RDW Coeff of Carolyn 13 (11.0-15.0) % Plt Count 348 (150-400) K/uL MPV 10.00 (7.40-12.00) fL Neut % (Auto) 82.4 H (48.0-80.0) % Lymph % (Auto) 10.7 L (16.0-40.0) % [place] % (Auto) 6.8 (0.0-15.0) % Eos % (Auto) 0.0 (0.0-7.0) % Baso % (Auto) 0.1 (0.0-1.5) % Neut # (Auto) 8.7 H (1.4-5.7) K/uL Lymph # (Auto) 1.1 (0.6-2.4) K/uL [place] # (Auto) 0.7 (0.0-0.8) K/uL Eos # (Auto) 0.0 (0.0-0.7) K/uL Baso # (Auto) 0.0 (0.0-0.1) K/uL Add Manual Diff Neutrophils % (Manual) (48.0-80.0) % Band Neutrophils % % Lymphocytes % (Manual) (16.0-40.0) % Monocytes % (Manual) (0.0-15.0) % Nucleated RBC % 0.0 /100WBC Absolute Seg Neuts (1.4-5.7) Band Neutrophils # Lymphocytes # (Manual) (0.6-2.4) Monocytes # (Manual) (0.0-0.8) Nucleated RBCs # 0 K/uL INR APTT (18.6-31.3) SEC D-Dimer, Quantitative (0.0-0.50) mg/L FEU Lactate 1.2 (0.20-2.00) mmol/L Sodium (136-148) mmol/L Potassium (3.5-5.1) mmol/L Chloride (98-107) mmol/L Carbon Dioxide (21.0-32.0) mmol/L BUN (7.0-18.0) mg/dL Creatinine (0.8-1.3) mg/dL Est Cr Clr Drug Dosing mL/min Estimated GFR (MDRD) ml/min Glucose (74-106) mg/dL Calcium (8.5-10.1) mg/dL Magnesium (1.8-2.4) mg/dL Total Bilirubin (0.2-1.0) mg/dL AST (15-37) IU/L ALT (14-63) IU/L Alkaline Phosphatase (46-116) U/L Troponin I (0.000-0.056) ng/mL B-Natriuretic Peptide 19 (<100) PG/ML Total Protein (6.4-8.2) g/dL Albumin (3.4-5.0) g/dL Globulin (2.6-4.0) g/dL Albumin/Globulin Ratio (0.9-1.6) TSH 3rd Generation (0.36-3.74) uIU/mL 11/08/20 Range/Units 04:55 WBC (4.0-11.0) K/uL RBC (4.50-5.90) M/uL Hgb (13.0-17.0) g/dL Hct (38.0-50.0) % MCV (80.0-98.0) fL MCH (27.0-32.0) pg MCHC (31.0-37.0) g/dL RDW Std Deviation (28.0-62.0) fl RDW Coeff of Carolyn (11.0-15.0) % Plt Count (150-400) K/uL MPV (7.40-12.00) fL Neut % (Auto) (48.0-80.0) % Lymph % (Auto) (16.0-40.0) % [place] % (Auto) (0.0-15.0) % Eos % (Auto) (0.0-7.0) % Baso % (Auto) (0.0-1.5) % Neut # (Auto) (1.4-5.7) K/uL Lymph # (Auto) (0.6-2.4) K/uL [place] # (Auto) (0.0-0.8) K/uL Eos # (Auto) (0.0-0.7) K/uL Baso # (Auto) (0.0-0.1) K/uL Add Manual Diff Neutrophils % (Manual) (48.0-80.0) % Band Neutrophils % % Lymphocytes % (Manual) (16.0-40.0) % Monocytes % (Manual) (0.0-15.0) % Nucleated RBC % /100WBC Absolute Seg Neuts (1.4-5.7) Band Neutrophils # Lymphocytes # (Manual) (0.6-2.4) Monocytes # (Manual) (0.0-0.8) Nucleated RBCs # K/uL INR APTT (18.6-31.3) SEC D-Dimer, Quantitative (0.0-0.50) mg/L FEU Lactate (0.20-2.00) mmol/L Sodium 135 L (136-148) mmol/L Potassium 4.5 (3.5-5.1) mmol/L Chloride 101 (98-107) mmol/L Carbon Dioxide 26.4 (21.0-32.0) mmol/L BUN 11 (7.0-18.0) mg/dL Creatinine 1.0 (0.8-1.3) mg/dL Est Cr Clr Drug Dosing 106.70 mL/min Estimated GFR (MDRD) > 60.0 ml/min Glucose 139 H (74-106) mg/dL Calcium 8.1 L (8.5-10.1) mg/dL Magnesium 2.4 (1.8-2.4) mg/dL Total Bilirubin 0.6 (0.2-1.0) mg/dL AST 21 (15-37) IU/L ALT 98 H (14-63) IU/L Alkaline Phosphatase 81 (46-116) U/L Troponin I (0.000-0.056) ng/mL B-Natriuretic Peptide (<100) PG/ML Total Protein 6.8 (6.4-8.2) g/dL Albumin 3.0 L (3.4-5.0) g/dL Globulin 3.8 (2.6-4.0) g/dL Albumin/Globulin Ratio 0.8 L (0.9-1.6) TSH 3rd Generation (0.36-3.74) uIU/mL Result Diagrams: 11/08/20 04:55 11/08/20 04:55 Sepsis Event Note - Evaluation Sepsis Screening Result: Sepsis Risk - Focused Exam Vital Signs: Vital Signs Temp Pulse Resp BP BP Pulse Ox 11/08/20 08:30 77 127/80 11/08/20 07:00 18 123/73 95 11/08/20 05:59 72 124/82 11/08/20 05:54 20 124/82 94 L 11/08/20 05:00 20 132/85 93 L 11/08/20 04:00 96.9 F 20 123/79 95 11/08/20 02:55 16 117/78 94 L 11/08/20 02:00 18 123/78 95 11/08/20 01:00 17 116/80 96 11/08/20 00:00 97 F 23 H 128/80 92 L 11/07/20 23:00 20 115/79 95 11/07/20 22:00 21 H 112/73 94 L 11/07/20 21:00 26 H 130/79 94 L - Problem List & Annotations (1) Acute respiratory failure with hypoxia SNOMED Code(s): 76819081, 446081435 Code(s): J96.01 - ACUTE RESPIRATORY FAILURE WITH HYPOXIA Status: Acute Current Visit: Yes (2) Atrial fibrillation with RVR SNOMED Code(s): 449981293940187 Code(s): I48.91 - UNSPECIFIED ATRIAL FIBRILLATION Status: Acute Current Visit: Yes (3) COVID-19 SNOMED Code(s): 374816877 Code(s): U07.1 - COVID-19 Status: Acute Current Visit: Yes (4) Bilateral pneumonia SNOMED Code(s): 540410792 Code(s): J18.9 - PNEUMONIA, UNSPECIFIED ORGANISM Status: Acute Current Visit: No (5) Hypoxia SNOMED Code(s): 535386979 Code(s): R09.02 - HYPOXEMIA Status: Acute Current Visit: No - Problem List Review Problem List Initiated/Reviewed/Updated: Yes - My Orders Last 24 Hours: My Active Orders 11/07/20 15:24 Benzonatate [Tessalon Perles] 200 mg PO TID PRN 11/07/20 15:25 IS (RT) [RT Incentive Spirometry] [RC] Q1HWA 11/08/20 08:57 RT Acapella [RESPCARE] Routine 11/08/20 08:57 Codeine/guaiFENesin [Robitussin AC] 10 ml PO Q4H PRN 11/08/20 08:58 Sodium Chloride 0.9% [Saline Flush] 2.5 ml FLUSH ASDIRECTED PRN Saline Lock Insert [OM.PC] Routine 11/09/20 05:11 BASIC METABOLIC PANEL,BMP [CHEM] AM CBC WITH AUTO DIFF [HEME] AM MAGNESIUM [CHEM] AM 11/10/20 05:11 BASIC METABOLIC PANEL,BMP [CHEM] AM CBC WITH AUTO DIFF [HEME] AM MAGNESIUM [CHEM] AM 11/11/20 05:11 BASIC METABOLIC PANEL,BMP [CHEM] AM CBC WITH AUTO DIFF [HEME] AM MAGNESIUM [CHEM] AM - Plan Plan:: 40 yo male with pmh of COVID pneumonia presenting with shortness of breath, a.fib with RVR and evolving infiltrates on CT scan of chest. 1. A.fib with RVR: -Converted to sinus rhythm yesterday afternoon diltiazem drip stopped -Continue oral Diltiazem 120 mg daily -Continue ASA, [id number]-[id number] score 0 -Monitor on telemetry -CTA ruled out PE 2 Acute/subacute respiratory failure: - continue supplemental O2 via NC, down to 2 L nasal cannula -Encouraged I-S and Acapella use 3. 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 -And significant cough. Tessalon Perles not helping. Will increase frequency of codeine/guaifenesin cough syrup to every 4 hours as needed -Continue I-S and Acapella use - Duonebs as needed -Oxygen as needed to keep sats greater than 92% -Blood cultures pending -CTA of chest revealed evolving infiltrates. VTE prophylaxis: lovenox CODE STATUS: full code Dispo: 1 to 2 days pending improvement. Transfer to [facility] floor as patient is stable and not needing ICU management any longer.
[2020-11-08] MEDS: Azithromycin 250 MG Tab PO SCH (12:28)
[2020-11-08] MEDS: Enoxaparin 40 MG/0.4 ML Syringe SUBCUT SCH (12:28)
[2020-11-08] MEDS: cefTRIAXone 1 GM in Premix Bag 1 BAG IV SCH (12:28)
[2020-11-08] MEDS ORDERED: Diltiazem IR 30 MG Tab PO ONE (14:13)
[2020-11-08] MEDS ORDERED: Diltiazem 25 MG/5 ML SDV IVPUSH ONE (15:24)
[2020-11-08] MEDS ORDERED: Diltiazem 25 MG/5 ML SDV IVPUSH PRN (15:25)
[2020-11-09] MEDS: Benzonatate 100 MG Cap PO PRN (00:04)
[2020-11-09] MEDS: Codeine/guaiFENesin 10-100 MG/5 ML Syrup 5 ML Cup PO PRN ×4 (04:32→20:14)
[2020-11-09 06:03] LABS: BLOOD UREA NITROGEN,BUN 15 mg/dL (7.0-18.0); CARBON DIOXIDE,CO2 26.9 mmol/L (21.0-32.0); CHLORIDE,CL 101 mmol/L (98-107); GLUCOSE RANDOM 135 mg/dL (74-106); POTASSIUM,K 4.2 mmol/L (3.5-5.1); SODIUM,NA 136 mmol/L (136-148)
[2020-11-09] MEDS: Aspirin 81 MG Tab.Chew PO SCH (08:42)
[2020-11-09] MEDS: Dexamethasone 4 MG Tab PO SCH (08:42)
[2020-11-09] MEDS ORDERED: Diltiazem 180 MG Cap.CD PO SCH (09:00)
[2020-11-09] MEDS ORDERED: Diltiazem 25 MG/5 ML SDV IVPUSH ONE (09:10)
[2020-11-09] MEDS ORDERED: Diltiazem 120 MG Cap.CD PO ONE (09:25)
--- NOTE | 2020-11-09 09:26 | PCM.PN ---
- General Info Date of Service: 11/09/20 Admission Dx/Problem (Free Text): Admission Diagnosis/Problem Admission Diagnosis/Problem Shortness of breath Subjective Update: Reports he is having a rough morning as he is feeling more short of breath and having cough. Denies any chest pain. He is sitting up in the chair eating breakfast. Reports cough continues to be dry nonproductive. He is doing I-S and Acapella this is the first time he has been up to the chair. Denies any abdominal pain he is urinating urine is yellow in color. Denies stools since Saturday. Functional Status: Reports: Pain Controlled, Tolerating Diet, Ambulating, Ur inating - Review of Systems General: Reports: Fatigue, Malaise HEENT: Reports: No Symptoms. Denies: Headaches, Sore Throat, Visual Changes Pulmonary: Reports: Shortness of Breath, Pleuritic Chest Pain, Cough. Denies: Sputum, Wheezing Cardiovascular: Reports: Palpitations, Dyspnea on Exertion. Denies: Chest Pain, Edema Gastrointestinal: Reports: Constipation. Denies: Abdominal Pain, Nausea, Vomiting Genitourinary: Reports: No Symptoms. Denies: Dysuria, Frequency, Burning Musculoskeletal: Reports: No Symptoms Skin: Reports: No Symptoms Neurological: Reports: No Symptoms Psychiatric: Reports: No Symptoms - Patient Data Vitals - Most Recent: Last Vital Signs Temp 98.6 F 11/09/20 08:00 Pulse 103 H 11/09/20 08:00 Resp 22 H 11/09/20 08:00 BP 112/77 11/09/20 08:00 Pulse Ox 91 L 11/09/20 08:00 Weight - Most Recent: 86.636 kg I&O - Last 24 Hours: Intake & Output 11/08/20 11/09/20 11/09/20 22:59 06:59 14:59 Intake Total 2350 1010 Output Total 2860 1530 Balance -510 -520 Lab Results Last 24 Hours: Laboratory Results - last 24 hr 11/09/20 11/09/20 Range/Units 05:35 05:35 WBC 19.22 H (4.0-11.0) K/uL RBC 5.08 (4.50-5.90) M/uL Hgb 15.2 (13.0-17.0) g/dL Hct 44.8 (38.0-50.0) % MCV 88.2 (80.0-98.0) fL MCH 29.9 (27.0-32.0) pg MCHC 33.9 (31.0-37.0) g/dL RDW Std Deviation 42.0 (28.0-62.0) fl RDW Coeff of Carolyn 13 (11.0-15.0) % Plt Count 353 (150-400) K/uL MPV 10.00 (7.40-12.00) fL Neut % (Auto) 84.8 H (48.0-80.0) % Lymph % (Auto) 8.6 L (16.0-40.0) % [place] % (Auto) 6.5 (0.0-15.0) % Eos % (Auto) 0.0 (0.0-7.0) % Baso % (Auto) 0.1 (0.0-1.5) % Neut # (Auto) 16.3 H (1.4-5.7) K/uL Lymph # (Auto) 1.7 (0.6-2.4) K/uL [place] # (Auto) 1.3 H (0.0-0.8) K/uL Eos # (Auto) 0.0 (0.0-0.7) K/uL Baso # (Auto) 0.0 (0.0-0.1) K/uL Nucleated RBC % 0.0 /100WBC Nucleated RBCs # 0 K/uL Sodium 136 (136-148) mmol/L Potassium 4.2 (3.5-5.1) mmol/L Chloride 101 (98-107) mmol/L Carbon Dioxide 26.9 (21.0-32.0) mmol/L BUN 15 (7.0-18.0) mg/dL Creatinine 1.1 (0.8-1.3) mg/dL Est Cr Clr Drug Dosing 97.00 mL/min Estimated GFR (MDRD) > 60.0 ml/min Glucose 135 H (74-106) mg/dL Calcium 8.7 (8.5-10.1) mg/dL Magnesium 2.3 (1.8-2.4) mg/dL Joseph Results Last 24 Hours: Microbiology 11/07/20 22:38 Aerobic Blood Culture - Preliminary Blood - Venous - Lab Draw NO GROWTH AFTER 1 DAY Anaerobic Blood Culture - Preliminary NO GROWTH AFTER 1 DAY 11/07/20 22:32 Aerobic Blood Culture - Preliminary Blood - Venous NO GROWTH AFTER 1 DAY Anaerobic Blood Culture - Preliminary NO GROWTH AFTER 1 DAY Med Orders - Current: Current Medications Acetaminophen (Acetaminophen 325 Mg Tab) 650 mg PO Q4H PRN PRN Reason: Pain (Mild 1-3)/fever Last Admin: 11/07/20 15:52 Dose: 650 mg Documented by: Albuterol/Ipratropium (Albuterol/Ipratropium 4 Gm Inhalation [place]) 1 gm INH Q4H PRN PRN Reason: Dyspnea Aspirin (Aspirin 81 Mg Tab.Chew) 81 mg PO DAILY [facility] Last Admin: 11/09/20 08:42 Dose: 81 mg Documented by: Azithromycin (Azithromycin 250 Mg Tab) 500 mg PO Q24H [facility] Last Admin: 11/08/20 12:28 Dose: 500 mg Documented by: Benzonatate (Benzonatate 100 Mg Cap) 200 mg PO TID PRN PRN Reason: Cough Last Admin: 11/09/20 00:04 Dose: 200 mg Documented by: Dexamethasone (Dexamethasone 4 Mg Tab) 6 mg PO DAILY [facility] Last Admin: 11/09/20 08:42 Dose: 6 mg Documented by: Diltiazem HCl (Diltiazem 180 Mg Cap.Cd) 180 mg PO DAILY [facility] Last Admin: 11/09/20 08:42 Dose: 180 mg Documented by: Diltiazem HCl (Diltiazem 25 Mg/5 Ml Sdv) 10 mg IVPUSH Q4H PRN PRN Reason: Afib HR>130 Last Admin: 11/09/20 09:03 Dose: 10 mg Documented by: Enoxaparin Sodium (Enoxaparin 40 Mg/0.4 Ml Syringe) 40 mg SUBCUT Q24H [facility] Last Admin: 11/08/20 12:28 Dose: 40 mg Documented by: Guaifenesin/Codeine Phosphate (Codeine/Guaifenesin 10-100 Mg/5 Ml Syrup 5 Ml Cup) 10 ml PO Q4H PRN PRN Reason: Cough Last Admin: 11/09/20 04:32 Dose: 10 ml Documented by: Ceftriaxone Sodium/Dextrose 1 (gm/ Premix) 50 mls @ 100 mls/hr IV Q24H [facility] Last Admin: 11/08/20 12:28 Dose: 100 mls/hr Documented by: Sodium Chloride (Sodium Chloride 0.9% 2.5 Ml Syringe) 2.5 ml FLUSH ASDIRECTED PRN PRN Reason: Keep Vein Open Discontinued Medications Dexamethasone (Dexamethasone 10 Mg/Ml Sdv) 6 mg IVPUSH ONETIME ONE Stop: 11/07/20 12:22 Last Admin: 11/07/20 12:31 Dose: 6 mg Documented by: Diltiazem HCl (Diltiazem 25 Mg/5 Ml Sdv) 20 mg IVPUSH ONETIME ONE Stop: 11/07/20 09:43 Last Admin: 11/07/20 10:04 Dose: 20 mg Documented by: Diltiazem HCl (Diltiazem 25 Mg/5 Ml Sdv) 5 mg IVPUSH ONETIME ONE Stop: 11/07/20 11:33 Last Admin: 11/07/20 11:39 Dose: 5 mg Documented by: Diltiazem HCl (Diltiazem 180 Mg Cap.Cd) 180 mg PO ONETIME ONE Stop: 11/07/20 12:41 Last Admin: 11/07/20 19:23 Dose: Not Given Documented by: Diltiazem HCl (Diltiazem Ir 30 Mg Tab) 30 mg PO Q6HR [facility] Last Admin: 11/07/20 14:40 Dose: 30 mg Documented by: Diltiazem HCl (Diltiazem Ir 30 Mg Tab) 30 mg PO Q6H [facility] Last Admin: 11/08/20 01:08 Dose: 30 mg Documented by: Diltiazem HCl (Diltiazem 120 Mg Cap.Cd) 120 mg PO DAILY [facility] Last Admin: 11/08/20 08:30 Dose: 120 mg Documented by: Diltiazem HCl (Diltiazem Ir 30 Mg Tab) 15 mg PO ONETIME ONE Stop: 11/08/20 14:14 Last Admin: 11/08/20 14:23 Dose: 15 mg Documented by: Diltiazem HCl (Diltiazem 25 Mg/5 Ml Sdv) 10 mg IVPUSH ONETIME ONE Stop: 11/08/20 15:25 Last Admin: 11/08/20 15:36 Dose: 10 mg Documented by: Diltiazem HCl (Diltiazem 25 Mg/5 Ml Sdv) 10 mg IVPUSH ONETIME ONE Stop: 11/09/20 09:11 Guaifenesin/Codeine Phosphate (Codeine/Guaifenesin 10-100 Mg/5 Ml Syrup 5 Ml Cup) 10 ml PO Q6H PRN PRN Reason: Cough Last Admin: 11/08/20 05:53 Dose: 10 ml Documented by: Sodium Chloride (Normal Saline) 1,000 mls @ 999 mls/hr IV .Bolus ONE Stop: 11/07/20 10:41 Last Admin: 11/07/20 10:04 Dose: 999 mls/hr Documented by: Diltiazem HCl 100 mg/ Sodium (Chloride) 100 mls @ 5 mls/hr IV NOW MICKI; Protocol Last Titration: 11/07/20 14:42 Dose: 0 mg/hr, 0 mls/hr Documented by: Sodium Chloride (Normal Saline) Confirm Administered Dose 100 mls @ as directed .ROUTE .STK-MED ONE Stop: 11/07/20 10:24 Last Admin: 11/07/20 11:17 Dose: Not Given Documented by: Sodium Chloride (Normal Saline) Confirm Administered Dose 100 mls @ as directed .ROUTE .STK-MED ONE Stop: 11/07/20 10:28 Last Admin: 11/07/20 11:17 Dose: Not Given Documented by: Iopamidol (Iopamidol 755 Mg/Ml 500 Ml Multipack Bottle) 100 ml IVPUSH ONETIME STA Stop: 11/07/20 13:18 Last Admin: 11/07/20 13:19 Dose: 100 ml Documented by: Morphine Sulfate (Morphine 4 Mg/Ml Syringe) 4 mg IVPUSH ONETIME ONE Stop: 11/07/20 09:50 Last Admin: 11/07/20 10:01 Dose: 4 mg Documented by: Morphine Sulfate (Morphine 2 Mg/Ml Syringe) 1 mg IVPUSH ONETIME ONE Stop: 11/07/20 23:33 Last Admin: 11/08/20 01:09 Dose: 1 mg Documented by: Oxycodone/Acetaminophen (Acetaminophen/Oxycodone 325-5 Mg Tab) 1 tab PO ONETIME ONE Stop: 11/07/20 13:00 Last Admin: 11/07/20 13:03 Dose: 1 tab Documented by: Sodium Chloride (Sodium Chloride 0.9% 10 Ml Syringe) 10 ml FLUSH ASDIRECTED PRN PRN Reason: Keep Vein Open Last Admin: 11/07/20 10:04 Dose: 10 ml Documented by: Sodium Chloride (Sodium Chloride 0.9% 2.5 Ml Syringe) 2.5 ml FLUSH ASDIRECTED PRN PRN Reason: Keep Vein Open Last Admin: 11/07/20 10:04 Dose: 2.5 ml Documented by: - Exam Quality Assessment: Supplemental Oxygen (2 L nasal cannula), DVT Prophylaxis (Lovenox) General: Alert, Oriented, Cooperative Lungs: Decreased Breath Sounds (Bibasilar), Other (Dry cough noted) Cardiovascular: Irregular Rhythm, Tachycardia GI/Abdominal Exam: Normal Bowel Sounds, Soft, Non-Tender Extremities: Normal Inspection, Normal Range of Motion, Non-Tender, No Pedal Edema Neurological: No New Focal Deficit Psy/Mental Status: Alert, Normal Affect, Anxious - Patient Data Lab Results Last 24 hrs: Laboratory Results - last 24 hr 11/09/20 11/09/20 Range/Units 05:35 05:35 WBC 19.22 H (4.0-11.0) K/uL RBC 5.08 (4.50-5.90) M/uL Hgb 15.2 (13.0-17.0) g/dL Hct 44.8 (38.0-50.0) % MCV 88.2 (80.0-98.0) fL MCH 29.9 (27.0-32.0) pg MCHC 33.9 (31.0-37.0) g/dL RDW Std Deviation 42.0 (28.0-62.0) fl RDW Coeff of Carolyn 13 (11.0-15.0) % Plt Count 353 (150-400) K/uL MPV 10.00 (7.40-12.00) fL Neut % (Auto) 84.8 H (48.0-80.0) % Lymph % (Auto) 8.6 L (16.0-40.0) % [place] % (Auto) 6.5 (0.0-15.0) % Eos % (Auto) 0.0 (0.0-7.0) % Baso % (Auto) 0.1 (0.0-1.5) % Neut # (Auto) 16.3 H (1.4-5.7) K/uL Lymph # (Auto) 1.7 (0.6-2.4) K/uL [place] # (Auto) 1.3 H (0.0-0.8) K/uL Eos # (Auto) 0.0 (0.0-0.7) K/uL Baso # (Auto) 0.0 (0.0-0.1) K/uL Nucleated RBC % 0.0 /100WBC Nucleated RBCs # 0 K/uL Sodium 136 (136-148) mmol/L Potassium 4.2 (3.5-5.1) mmol/L Chloride 101 (98-107) mmol/L Carbon Dioxide 26.9 (21.0-32.0) mmol/L BUN 15 (7.0-18.0) mg/dL Creatinine 1.1 (0.8-1.3) mg/dL Est Cr Clr Drug Dosing 97.00 mL/min Estimated GFR (MDRD) > 60.0 ml/min Glucose 135 H (74-106) mg/dL Calcium 8.7 (8.5-10.1) mg/dL Magnesium 2.3 (1.8-2.4) mg/dL Result Diagrams: 11/09/20 05:35 11/09/20 05:35 Joseph Results Last 24 hrs: Microbiology 11/07/20 22:38 Aerobic Blood Culture - Preliminary Blood - Venous - Lab Draw NO GROWTH AFTER 1 DAY Anaerobic Blood Culture - Preliminary NO GROWTH AFTER 1 DAY 11/07/20 22:32 Aerobic Blood Culture - Preliminary Blood - Venous NO GROWTH AFTER 1 DAY Anaerobic Blood Culture - Preliminary NO GROWTH AFTER 1 DAY Sepsis Event Note - Evaluation Sepsis Screening Result: Sepsis Risk - Focused Exam Vital Signs: Vital Signs Temp Pulse Resp BP Pulse Ox 11/09/20 08:00 98.6 F 103 H 22 H 112/77 91 L 11/09/20 04:30 98.4 F 18 105/72 93 L 11/09/20 00:05 97.4 F 20 113/67 92 L - Problem List & Annotations (1) Acute respiratory failure with hypoxia SNOMED Code(s): 52734174, 037323391 Code(s): J96.01 - ACUTE RESPIRATORY FAILURE WITH HYPOXIA Status: Acute Current Visit: Yes (2) Atrial fibrillation with RVR SNOMED Code(s): 998642835828858 Code(s): I48.91 - UNSPECIFIED ATRIAL FIBRILLATION Status: Acute Current Visit: Yes (3) COVID-19 SNOMED Code(s): 911965780 Code(s): U07.1 - COVID-19 Status: Acute Current Visit: Yes (4) Bilateral pneumonia SNOMED Code(s): 148086367 Code(s): J18.9 - PNEUMONIA, UNSPECIFIED ORGANISM Status: Acute Current Visit: No (5) Hypoxia SNOMED Code(s): 560112603 Code(s): R09.02 - HYPOXEMIA Status: Acute Current Visit: No - Problem List Review Problem List Initiated/Reviewed/Updated: Yes - My Orders Last 24 Hours: My Active Orders 11/08/20 08:57 Codeine/guaiFENesin [Robitussin AC] 10 ml PO Q4H PRN RT Acapella [RESPCARE] Routine 11/08/20 08:58 Sodium Chloride 0.9% [Saline Flush] 2.5 ml FLUSH ASDIRECTED PRN Saline Lock Insert [OM.PC] Routine 11/08/20 10:32 Transfer Patient (Change bed) [ADT] Routine Telemetry Monitoring [Cardiac Monitoring] [RC] Q8H 11/08/20 15:25 Diltiazem 10 mg IVPUSH Q4H PRN 11/09/20 09:00 Diltiazem [Cardizem CD] 180 mg PO DAILY 11/09/20 09:10 Diltiazem 10 mg IVPUSH ONETIME ONE 11/09/20 09:24 Patient Status [ADT] Stat 11/10/20 05:11 BASIC METABOLIC PANEL,BMP [CHEM] AM CBC WITH AUTO DIFF [HEME] AM MAGNESIUM [CHEM] AM 11/11/20 05:11 BASIC METABOLIC PANEL,BMP [CHEM] AM CBC WITH AUTO DIFF [HEME] AM MAGNESIUM [CHEM] AM - Plan Plan:: 40 yo male with pmh of COVID pneumonia presenting with shortness of breath, a .fib with RVR and evolving infiltrates on CT scan of chest. 1. A.fib with RVR: -Patient reverted back to A. fib yesterday afternoon, this morning patient noted to be A. fib RVR. -Appears A. fib is causing increasing shortness of breath. -Gave diltiazem 20 mg IV. Heart rate did decrease from 130s to 160s down to A. fib 110-120. -We will increase oral diltiazem to 240 p.o. daily -Monitor blood pressure -Continue ASA, [id number] score 0 -Monitor on telemetry -CTA ruled out PE 2 Acute/subacute respiratory failure: - continue supplemental O2 via NC, down to 2 L nasal cannula -Encouraged I-S and Acapella use 3. 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 -Leukocytosis likely elevated secondary to steroid. -Significant cough. Tessalon Perles not helping. Continue codeine/guaifenesin cough syrup to every 4 hours as needed -Continue I-S and Acapella use -Encouraged to use Combivent nursing and RT will administer. -Oxygen as needed to keep sats greater than 92% -Blood cultures negative VTE prophylaxis: lovenox CODE STATUS: full code Dispo: We will make inpatient due to continued A. fib RVR need to control heart rate before discharging home.
[2020-11-09] MEDS: Albuterol/Ipratropium 4 GM Inhalation Spray INH PRN ×2 (09:31→19:57)
[2020-11-09] MEDS ORDERED: Sodium Chloride 0.9% 500 ML IV ONE (10:28)
[2020-11-09] MEDS ORDERED: Bisacodyl 5 MG Tab PO ONE (10:37)
[2020-11-09] MEDS: Azithromycin 250 MG Tab PO SCH (13:17)
[2020-11-09] MEDS: Enoxaparin 40 MG/0.4 ML Syringe SUBCUT SCH (13:18)
[2020-11-09] MEDS: cefTRIAXone 1 GM in Premix Bag 1 BAG IV SCH (13:20)
[2020-11-09] MEDS: Acetaminophen 325 MG Tab PO PRN (18:18)
[2020-11-09] MEDS ORDERED: Calcium Carbonate 500 MG Tab.Chew PO PRN ×2 (23:32→23:33)
[2020-11-10] MEDS: Albuterol/Ipratropium 4 GM Inhalation Spray INH PRN ×6 (00:18→21:07)
[2020-11-10] MEDS: Codeine/guaiFENesin 10-100 MG/5 ML Syrup 5 ML Cup PO PRN ×5 (00:19→21:08)
[2020-11-10] MEDS ORDERED: traZODone 50 MG Tab PO ONE (01:13)
[2020-11-10 05:42] LABS: BLOOD UREA NITROGEN,BUN 19 mg/dL (7.0-18.0); CARBON DIOXIDE,CO2 28.4 mmol/L (21.0-32.0); CHLORIDE,CL 103 mmol/L (98-107); GLUCOSE RANDOM 139 mg/dL (74-106); POTASSIUM,K 4.4 mmol/L (3.5-5.1); SODIUM,NA 139 mmol/L (136-148)
[2020-11-10] MEDS: Dexamethasone 4 MG Tab PO SCH (08:39)
[2020-11-10] MEDS: Diltiazem 120 MG Cap.CD PO SCH (08:40)
[2020-11-10] MEDS: Aspirin 81 MG Tab.Chew PO SCH (08:40)
--- NOTE | 2020-11-10 10:57 | PCM.PN ---
- General Info Date of Service: 11/10/20 - Review of Systems Systems Review Comment:: reports cough, unable to talk on phone with family due to triggering cough. no fevers, non productive cough - Patient Data Vitals - Most Recent: Last Vital Signs Temp 36.4 C 11/10/20 08:00 Pulse 85 11/10/20 08:40 Resp 18 11/10/20 08:00 BP 122/83 11/10/20 08:40 Pulse Ox 92 L 11/10/20 08:55 Weight - Most Recent: 86.636 kg I&O - Last 24 Hours: Intake & Output 11/09/20 11/10/20 11/10/20 22:59 06:59 14:59 Intake Total 2030 1400 Output Total 1700 1550 Balance 330 -150 Lab Results Last 24 Hours: Laboratory Results - last 24 hr 11/10/20 11/10/20 Range/Units 05:17 05:17 WBC 15.37 H (4.0-11.0) K/uL RBC 4.67 (4.50-5.90) M/uL Hgb 13.9 (13.0-17.0) g/dL Hct 41.4 (38.0-50.0) % MCV 88.7 (80.0-98.0) fL MCH 29.8 (27.0-32.0) pg MCHC 33.6 (31.0-37.0) g/dL RDW Std Deviation 43.0 (28.0-62.0) fl RDW Coeff of Carolyn 13 (11.0-15.0) % Plt Count 308 (150-400) K/uL MPV 10.10 (7.40-12.00) fL Neut % (Auto) 85.3 H (48.0-80.0) % Lymph % (Auto) 9.0 L (16.0-40.0) % [place] % (Auto) 5.7 (0.0-15.0) % Eos % (Auto) 0.0 (0.0-7.0) % Baso % (Auto) 0.0 (0.0-1.5) % Neut # (Auto) 13.1 H (1.4-5.7) K/uL Lymph # (Auto) 1.4 (0.6-2.4) K/uL [place] # (Auto) 0.9 H (0.0-0.8) K/uL Eos # (Auto) 0.0 (0.0-0.7) K/uL Baso # (Auto) 0.0 (0.0-0.1) K/uL Nucleated RBC % 0.0 /100WBC Nucleated RBCs # 0 K/uL Sodium 139 (136-148) mmol/L Potassium 4.4 (3.5-5.1) mmol/L Chloride 103 (98-107) mmol/L Carbon Dioxide 28.4 (21.0-32.0) mmol/L BUN 19 H (7.0-18.0) mg/dL Creatinine 1.0 (0.8-1.3) mg/dL Est Cr Clr Drug Dosing 106.85 mL/min Estimated GFR (MDRD) > 60.0 ml/min Glucose 139 H (74-106) mg/dL Calcium 8.8 (8.5-10.1) mg/dL Magnesium 2.4 (1.8-2.4) mg/dL Joseph Results Last 24 Hours: Microbiology 11/07/20 22:38 Aerobic Blood Culture - Preliminary Blood - Venous - Lab Draw NO GROWTH AFTER 2 DAYS Anaerobic Blood Culture - Preliminary NO GROWTH AFTER 2 DAYS 11/07/20 22:32 Aerobic Blood Culture - Preliminary Blood - Venous NO GROWTH AFTER 2 DAYS Anaerobic Blood Culture - Preliminary NO GROWTH AFTER 2 DAYS Med Orders - Current: Current Medications Acetaminophen (Acetaminophen 325 Mg Tab) 650 mg PO Q4H PRN PRN Reason: Pain (Mild 1-3)/fever Last Admin: 11/09/20 18:18 Dose: 650 mg Documented by: Albuterol/Ipratropium (Albuterol/Ipratropium 4 Gm Inhalation [place]) 1 gm INH Q4H PRN PRN Reason: Dyspnea Last Admin: 11/10/20 08:42 Dose: 1 inhalation Documented by: Aspirin (Aspirin 81 Mg Tab.Chew) 81 mg PO DAILY MICKI Last Admin: 11/10/20 08:40 Dose: 81 mg Documented by: Azithromycin (Azithromycin 250 Mg Tab) 500 mg PO Q24H MICKI Last Admin: 11/09/20 13:17 Dose: 500 mg Documented by: Benzonatate (Benzonatate 100 Mg Cap) 200 mg PO TID PRN PRN Reason: Cough Last Admin: 11/09/20 00:04 Dose: 200 mg Documented by: Calcium Carbonate/Glycine (Calcium Carbonate 500 Mg Tab.Chew) 500 mg PO Q6H PRN PRN Reason: Indigestion Dexamethasone (Dexamethasone 4 Mg Tab) 6 mg PO DAILY [facility] Last Admin: 11/10/20 08:39 Dose: 6 mg Documented by: Diltiazem HCl (Diltiazem 25 Mg/5 Ml Sdv) 10 mg IVPUSH Q4H PRN PRN Reason: Afib HR>130 Last Admin: 11/09/20 09:03 Dose: 10 mg Documented by: Diltiazem HCl (Diltiazem 120 Mg Cap.Cd) 240 mg PO DAILY [facility] Last Admin: 11/10/20 08:40 Dose: 240 mg Documented by: Enoxaparin Sodium (Enoxaparin 40 Mg/0.4 Ml Syringe) 40 mg SUBCUT Q24H [facility] Last Admin: 11/09/20 13:18 Dose: 40 mg Documented by: Guaifenesin/Codeine Phosphate (Codeine/Guaifenesin 10-100 Mg/5 Ml Syrup 5 Ml Cup) 10 ml PO Q4H PRN PRN Reason: Cough Last Admin: 11/10/20 10:44 Dose: 10 ml Documented by: Ceftriaxone Sodium/Dextrose 1 (gm/ Premix) 50 mls @ 100 mls/hr IV Q24H [facility] Last Admin: 11/09/20 13:20 Dose: 100 mls/hr Documented by: Sodium Chloride (Sodium Chloride 0.9% 2.5 Ml Syringe) 2.5 ml FLUSH ASDIRECTED PRN PRN Reason: Keep Vein Open Discontinued Medications Bisacodyl (Bisacodyl 5 Mg Tab) 10 mg PO ONETIME ONE Stop: 11/09/20 10:38 Last Admin: 11/09/20 11:16 Dose: 10 mg Documented by: Calcium Carbonate/Glycine (Calcium Carbonate 500 Mg Tab.Chew) 500 mg PO Q2HR PRN PRN Reason: Indigestion Dexamethasone (Dexamethasone 10 Mg/Ml Sdv) 6 mg IVPUSH ONETIME ONE Stop: 11/07/20 12:22 Last Admin: 11/07/20 12:31 Dose: 6 mg Documented by: Diltiazem HCl (Diltiazem 25 Mg/5 Ml Sdv) 20 mg IVPUSH ONETIME ONE Stop: 11/07/20 09:43 Last Admin: 11/07/20 10:04 Dose: 20 mg Documented by: Diltiazem HCl (Diltiazem 25 Mg/5 Ml Sdv) 5 mg IVPUSH ONETIME ONE Stop: 11/07/20 11:33 Last Admin: 11/07/20 11:39 Dose: 5 mg Documented by: Diltiazem HCl (Diltiazem 180 Mg Cap.Cd) 180 mg PO ONETIME ONE Stop: 11/07/20 12:41 Last Admin: 11/07/20 19:23 Dose: Not Given Documented by: Diltiazem HCl (Diltiazem Ir 30 Mg Tab) 30 mg PO Q6HR [facility] Last Admin: 11/07/20 14:40 Dose: 30 mg Documented by: Diltiazem HCl (Diltiazem Ir 30 Mg Tab) 30 mg PO Q6H [facility] Last Admin: 11/08/20 01:08 Dose: 30 mg Documented by: Diltiazem HCl (Diltiazem 120 Mg Cap.Cd) 120 mg PO DAILY [facility] Last Admin: 11/08/20 08:30 Dose: 120 mg Documented by: Diltiazem HCl (Diltiazem Ir 30 Mg Tab) 15 mg PO ONETIME ONE Stop: 11/08/20 14:14 Last Admin: 11/08/20 14:23 Dose: 15 mg Documented by: Diltiazem HCl (Diltiazem 25 Mg/5 Ml Sdv) 10 mg IVPUSH ONETIME ONE Stop: 11/08/20 15:25 Last Admin: 11/08/20 15:36 Dose: 10 mg Documented by: Diltiazem HCl (Diltiazem 180 Mg Cap.Cd) 180 mg PO DAILY [facility] Last Admin: 11/09/20 08:42 Dose: 180 mg Documented by: Diltiazem HCl (Diltiazem 25 Mg/5 Ml Sdv) 10 mg IVPUSH ONETIME ONE Stop: 11/09/20 09:11 Last Admin: 11/09/20 09:26 Dose: 10 mg Documented by: Diltiazem HCl (Diltiazem 120 Mg Cap.Cd) 120 mg PO ONETIME ONE Stop: 11/09/20 09:26 Last Admin: 11/09/20 11:16 Dose: 120 mg Documented by: Guaifenesin/Codeine Phosphate (Codeine/Guaifenesin 10-100 Mg/5 Ml Syrup 5 Ml Cup) 10 ml PO Q6H PRN PRN Reason: Cough Last Admin: 11/08/20 05:53 Dose: 10 ml Documented by: Sodium Chloride (Normal Saline) 1,000 mls @ 999 mls/hr IV .Bolus ONE Stop: 11/07/20 10:41 Last Admin: 11/07/20 10:04 Dose: 999 mls/hr Documented by: Diltiazem HCl 100 mg/ Sodium (Chloride) 100 mls @ 5 mls/hr IV NOW MICKI; Protocol Last Titration: 11/07/20 14:42 Dose: 0 mg/hr, 0 mls/hr Documented by: Sodium Chloride (Normal Saline) Confirm Administered Dose 100 mls @ as directed .ROUTE .STK-MED ONE Stop: 11/07/20 10:24 Last Admin: 11/07/20 11:17 Dose: Not Given Documented by: Sodium Chloride (Normal Saline) Confirm Administered Dose 100 mls @ as directed .ROUTE .STK-MED ONE Stop: 11/07/20 10:28 Last Admin: 11/07/20 11:17 Dose: Not Given Documented by: Sodium Chloride (Normal Saline) 500 mls @ 175 mls/hr IV ONETIME ONE Stop: 11/09/20 13:19 Last Admin: 11/09/20 10:43 Dose: 175 mls/hr Documented by: Iopamidol (Iopamidol 755 Mg/Ml 500 Ml Multipack Bottle) 100 ml IVPUSH ONETIME STA Stop: 11/07/20 13:18 Last Admin: 11/07/20 13:19 Dose: 100 ml Documented by: Morphine Sulfate (Morphine 4 Mg/Ml Syringe) 4 mg IVPUSH ONETIME ONE Stop: 11/07/20 09:50 Last Admin: 11/07/20 10:01 Dose: 4 mg Documented by: Morphine Sulfate (Morphine 2 Mg/Ml Syringe) 1 mg IVPUSH ONETIME ONE Stop: 11/07/20 23:33 Last Admin: 11/08/20 01:09 Dose: 1 mg Documented by: Oxycodone/Acetaminophen (Acetaminophen/Oxycodone 325-5 Mg Tab) 1 tab PO ONETIME ONE Stop: 11/07/20 13:00 Last Admin: 11/07/20 13:03 Dose: 1 tab Documented by: Sodium Chloride (Sodium Chloride 0.9% 10 Ml Syringe) 10 ml FLUSH ASDIRECTED PRN PRN Reason: Keep Vein Open Last Admin: 11/07/20 10:04 Dose: 10 ml Documented by: Sodium Chloride (Sodium Chloride 0.9% 2.5 Ml Syringe) 2.5 ml FLUSH ASDIRECTED PRN PRN Reason: Keep Vein Open Last Admin: 11/07/20 10:04 Dose: 2.5 ml Documented by: Trazodone HCl (Trazodone 50 Mg Tab) 50 mg PO ONETIME ONE Stop: 11/10/20 01:14 Last Admin: 11/10/20 01:34 Dose: 50 mg Documented by: - Exam General: Alert, Oriented Neck: Supple Lungs: Clear to Auscultation, Normal Respiratory Effort Cardiovascular: Regular Rate, Regular Rhythm Extremities: Non-Tender, No Pedal Edema Skin: Warm, Dry, Intact Neurological: No New Focal Deficit - Patient Data Lab Results Last 24 hrs: Laboratory Results - last 24 hr 11/10/20 11/10/20 Range/Units 05:17 05:17 WBC 15.37 H (4.0-11.0) K/uL RBC 4.67 (4.50-5.90) M/uL Hgb 13.9 (13.0-17.0) g/dL Hct 41.4 (38.0-50.0) % MCV 88.7 (80.0-98.0) fL MCH 29.8 (27.0-32.0) pg MCHC 33.6 (31.0-37.0) g/dL RDW Std Deviation 43.0 (28.0-62.0) fl RDW Coeff of Carolyn 13 (11.0-15.0) % Plt Count 308 (150-400) K/uL MPV 10.10 (7.40-12.00) fL Neut % (Auto) 85.3 H (48.0-80.0) % Lymph % (Auto) 9.0 L (16.0-40.0) % [place] % (Auto) 5.7 (0.0-15.0) % Eos % (Auto) 0.0 (0.0-7.0) % Baso % (Auto) 0.0 (0.0-1.5) % Neut # (Auto) 13.1 H (1.4-5.7) K/uL Lymph # (Auto) 1.4 (0.6-2.4) K/uL [place] # (Auto) 0.9 H (0.0-0.8) K/uL Eos # (Auto) 0.0 (0.0-0.7) K/uL Baso # (Auto) 0.0 (0.0-0.1) K/uL Nucleated RBC % 0.0 /100WBC Nucleated RBCs # 0 K/uL Sodium 139 (136-148) mmol/L Potassium 4.4 (3.5-5.1) mmol/L Chloride 103 (98-107) mmol/L Carbon Dioxide 28.4 (21.0-32.0) mmol/L BUN 19 H (7.0-18.0) mg/dL Creatinine 1.0 (0.8-1.3) mg/dL Est Cr Clr Drug Dosing 106.85 mL/min Estimated GFR (MDRD) > 60.0 ml/min Glucose 139 H (74-106) mg/dL Calcium 8.8 (8.5-10.1) mg/dL Magnesium 2.4 (1.8-2.4) mg/dL Result Diagrams: 11/10/20 05:17 11/10/20 05:17 Joseph Results Last 24 hrs: Microbiology 11/07/20 22:38 Aerobic Blood Culture - Preliminary Blood - Venous - Lab Draw NO GROWTH AFTER 2 DAYS Anaerobic Blood Culture - Preliminary NO GROWTH AFTER 2 DAYS 11/07/20 22:32 Aerobic Blood Culture - Preliminary Blood - Venous NO GROWTH AFTER 2 DAYS Anaerobic Blood Culture - Preliminary NO GROWTH AFTER 2 DAYS Sepsis Event Note - Evaluation Sepsis Screening Result: No Definite Risk - Focused Exam Vital Signs: Vital Signs Temp Pulse Pulse Resp BP BP Pulse Ox 11/10/20 08:55 11/10/20 08:40 85 122/83 11/10/20 08:00 36.4 C 85 18 122/83 92 L 11/10/20 04:00 36.3 C 64 19 112/70 95 11/10/20 00:00 36.6 C 79 18 111/72 93 L Pulse Ox 11/10/20 08:55 92 L 11/10/20 08:40 11/10/20 08:00 11/10/20 04:00 11/10/20 00:00 - Problem List Review Problem List Initiated/Reviewed/Updated: Yes - My Orders Last 24 Hours: My Active Orders 11/09/20 23:33 Calcium Carbonate [Tums] 500 mg PO Q6H PRN - Plan Plan:: 40 yo male with pmh of COVID pneumonia presenting with shortness of breath, a.fib with RVR and evolving infiltrates on CT scan of chest. 1. A.fib with RVR: -Patient reverted back to normal sinus yesterday afternoon, this morning patient noted to be A. fib RVR. -continue oral diltiazem 240 p.o. daily -Monitor blood pressure -Continue ASA, [id number] score 0 -Monitor on telemetry -CTA ruled out PE 2 Acute/subacute respiratory failure: - continue supplemental O2 via NC, down to 2 L nasal cannula -Encouraged I-S and Acapella use 3. Community acquired pneumonia and likely viral pneumonia, post COVID-19 seque lae -Continue Rocephin, azithromycin - Continue dexamethasone 6 mg p.o. -Leukocytosis likely elevated secondary to steroid. -Significant cough. Tessalon Perles not helping. Continue codeine/guaifenesin cough syrup to every 4 hours as needed -Continue I-S and Acapella use -Encouraged to use Combivent nursing and RT will administer. -Oxygen as needed to keep sats greater than 92% -Blood cultures negative VTE prophylaxis: lovenox CODE STATUS: full code
[2020-11-10] MEDS: Azithromycin 250 MG Tab PO SCH (12:55)
[2020-11-10] MEDS: cefTRIAXone 1 GM in Premix Bag 1 BAG IV SCH (12:56)
[2020-11-10] MEDS: Enoxaparin 40 MG/0.4 ML Syringe SUBCUT SCH (12:57)
[2020-11-10] MEDS: Acetaminophen 325 MG Tab PO PRN ×2 (17:18→21:08)
[2020-11-11] MEDS: Codeine/guaiFENesin 10-100 MG/5 ML Syrup 5 ML Cup PO PRN ×2 (04:12→08:36)
[2020-11-11] MEDS: Albuterol/Ipratropium 4 GM Inhalation Spray INH PRN (04:14)
[2020-11-11 05:43] LABS: BLOOD UREA NITROGEN,BUN 16 mg/dL (7.0-18.0); CHLORIDE,CL 102 mmol/L (98-107); GLUCOSE RANDOM 128 mg/dL (74-106); POTASSIUM,K 4.1 mmol/L (3.5-5.1); SODIUM,NA 137 mmol/L (136-148)
--- NOTE | 2020-11-11 07:44 | PCM.DCSUM1 ---
Discharge Summary - Discharge Data Discharge Date: 11/11/20 Discharge Disposition: Home, Self-Care 01 Condition: Stable - Referral to Home Health Primary Care Physician: PCP None - Patient Summary/Data Hospital Course: 40 yo male with pmh of COVID-19 infection. Patient was discharged ten days ago after getting 5 days of remdesivir and dexamethasone. He did developed a.fib with RVR and was discharged on diltiazem and home O2. Patient presented to the ED with complaints of increased shortness of breath and suffers from a persistent cough that once triggered takes a while to recover from. In the ED he was noted to be tachycardic with HR in the 160s. Patient was given dexamethasone placed on diltiazem drip which controlled his HR and improved his acute symptoms of shortness of breath. CT chest angio reported no PE with bilateral opacities are smaller but more dense compared to prior CT. His oral diltiazem dose was titrated up to 240mg daily to control his atrial fibrillation and he was weaned off diltiazem drip. He did convert to normal sinus rhythm. He was treated with Rocephin, azithromycin and dexamethason. He did eventual have improvement in his cough and exertional dyspnea. Patient reports that he is ready for discharge. He is to follow up with Dr. Millan. PAtient was discharged home with three more days of antibiotics and dexamethason. Patient already has an albuterol inhaler and supplemental oxygen at home. Patient is currently on 1-2 liters NC. - Patient Instructions Diet: Usual Diet as Tolerated Activity: As Tolerated Notify Provider of: Fever, Increased Pain, Swelling and Redness, Nausea and/or Vomiting - Discharge Plan Prescriptions/Med Rec: Azithromycin 500 mg PO DAILY #3 tablet Cefdinir 300 mg PO BID #6 capsule dexAMETHasone [Dexamethasone] 4 mg PO DAILY #2 tablet dilTIAZem HCL [Diltiazem 24Hr ER] 240 mg PO DAILY #30 cap.sa.24h Codeine/guaiFENesin [Robitussin AC] 10 ml PO Q4H PRN #120 ml PRN Reason: Cough Home Medications: Home Meds Aspirin 81 mg PO DAILY 30 Days #30 tab.chew 10/27/20 [Rx] Azithromycin 500 mg PO DAILY #3 tablet 11/11/20 [Rx] Cefdinir 300 mg PO BID #6 capsule 11/11/20 [Rx] Codeine/guaiFENesin [Robitussin AC] 10 ml PO Q4H PRN #120 ml 11/11/20 [Rx] dexAMETHasone [Dexamethasone] 4 mg PO DAILY #2 tablet 11/11/20 [Rx] dilTIAZem HCL [Diltiazem 24Hr ER] 240 mg PO DAILY #30 cap.sa.24h 11/11/20 [Rx] Patient Handouts: COVID-19 Frequently Asked Questions, Home Oxygen Use, Adult, Atrial Fibrillation, [id number] Referrals: Paulette Garrett MD [Physician] - 12/09/20 11:00 am Lefty Salinas MD [Physician] - 11/24/20 8:00 am - Discharge Summary/Plan Comment DC Time >30 min.: No - General Info Date of Service: 11/11/20 - Patient Data Vitals - Most Recent: Last Vital Signs Temp 36.3 C 11/11/20 04:10 Pulse 66 11/11/20 04:10 Resp 19 11/11/20 04:10 BP 119/75 11/11/20 04:10 Pulse Ox 93 L 11/11/20 04:10 Weight - Most Recent: 86.636 kg I&O - Last 24 hours: Intake & Output 11/10/20 11/11/20 11/11/20 22:59 06:59 14:59 Intake Total 2370 1400 Output Total 2050 1225 Balance 320 175 Lab Results - Last 24 hrs: Laboratory Results - last 24 hr 11/11/20 11/11/20 Range/Units 05:10 05:10 WBC 14.87 H (4.0-11.0) K/uL RBC 4.64 (4.50-5.90) M/uL Hgb 13.8 (13.0-17.0) g/dL Hct 41.1 (38.0-50.0) % MCV 88.6 (80.0-98.0) fL MCH 29.7 (27.0-32.0) pg MCHC 33.6 (31.0-37.0) g/dL RDW Std Deviation 43.1 (28.0-62.0) fl RDW Coeff of Carolyn 13 (11.0-15.0) % Plt Count 290 (150-400) K/uL MPV 10.20 (7.40-12.00) fL Neut % (Auto) 81.5 H (48.0-80.0) % Lymph % (Auto) 10.4 L (16.0-40.0) % [place] % (Auto) 8.1 (0.0-15.0) % Eos % (Auto) 0.0 (0.0-7.0) % Baso % (Auto) 0.0 (0.0-1.5) % Neut # (Auto) 12.1 H (1.4-5.7) K/uL Lymph # (Auto) 1.5 (0.6-2.4) K/uL [place] # (Auto) 1.2 H (0.0-0.8) K/uL Eos # (Auto) 0.0 (0.0-0.7) K/uL Baso # (Auto) 0.0 (0.0-0.1) K/uL Nucleated RBC % 0.0 /100WBC Nucleated RBCs # 0 K/uL Sodium 137 (136-148) mmol/L Potassium 4.1 (3.5-5.1) mmol/L Chloride 102 (98-107) mmol/L Carbon Dioxide 28.0 (21.0-32.0) mmol/L BUN 16 (7.0-18.0) mg/dL Creatinine 1.0 (0.8-1.3) mg/dL Est Cr Clr Drug Dosing 106.85 mL/min Estimated GFR (MDRD) > 60.0 ml/min Glucose 128 H (74-106) mg/dL Calcium 8.4 L (8.5-10.1) mg/dL Magnesium 2.3 (1.8-2.4) mg/dL ADWOA Results - Last 24 hrs: Microbiology 11/07/20 22:38 Aerobic Blood Culture - Preliminary Blood - Venous - Lab Draw NO GROWTH AFTER 3 DAYS Anaerobic Blood Culture - Preliminary NO GROWTH AFTER 3 DAYS 11/07/20 22:32 Aerobic Blood Culture - Preliminary Blood - Venous NO GROWTH AFTER 3 DAYS Anaerobic Blood Culture - Preliminary NO GROWTH AFTER 3 DAYS Med Orders - Current: Current Medications Acetaminophen (Acetaminophen 325 Mg Tab) 650 mg PO Q4H PRN PRN Reason: Pain (Mild 1-3)/fever Last Admin: 11/10/20 21:08 Dose: 650 mg Documented by: Albuterol/Ipratropium (Albuterol/Ipratropium 4 Gm Inhalation [place]) 1 gm INH Q4H PRN PRN Reason: Dyspnea Last Admin: 11/11/20 04:14 Dose: 1 inhalation Documented by: Aspirin (Aspirin 81 Mg Tab.Chew) 81 mg PO DAILY [facility] Last Admin: 11/10/20 08:40 Dose: 81 mg Documented by: Azithromycin (Azithromycin 250 Mg Tab) 500 mg PO Q24H [facility] Last Admin: 11/10/20 12:55 Dose: 500 mg Documented by: Benzonatate (Benzonatate 100 Mg Cap) 200 mg PO TID PRN PRN Reason: Cough Last Admin: 11/09/20 00:04 Dose: 200 mg Documented by: Calcium Carbonate/Glycine (Calcium Carbonate 500 Mg Tab.Chew) 500 mg PO Q6H PRN PRN Reason: Indigestion Dexamethasone (Dexamethasone 4 Mg Tab) 6 mg PO DAILY [facility] Last Admin: 11/10/20 08:39 Dose: 6 mg Documented by: Diltiazem HCl (Diltiazem 25 Mg/5 Ml Sdv) 10 mg IVPUSH Q4H PRN PRN Reason: Afib HR>130 Last Admin: 11/09/20 09:03 Dose: 10 mg Documented by: Diltiazem HCl (Diltiazem 120 Mg Cap.Cd) 240 mg PO DAILY [facility] Last Admin: 11/10/20 08:40 Dose: 240 mg Documented by: Enoxaparin Sodium (Enoxaparin 40 Mg/0.4 Ml Syringe) 40 mg SUBCUT Q24H [facility] Last Admin: 11/10/20 12:57 Dose: 40 mg Documented by: Guaifenesin/Codeine Phosphate (Codeine/Guaifenesin 10-100 Mg/5 Ml Syrup 5 Ml Cup) 10 ml PO Q4H PRN PRN Reason: Cough Last Admin: 11/11/20 04:12 Dose: 10 ml Documented by: Ceftriaxone Sodium/Dextrose 1 (gm/ Premix) 50 mls @ 100 mls/hr IV Q24H [facility] Last Admin: 11/10/20 12:56 Dose: 100 mls/hr Documented by: Sodium Chloride (Sodium Chloride 0.9% 2.5 Ml Syringe) 2.5 ml FLUSH ASDIRECTED PRN PRN Reason: Keep Vein Open Discontinued Medications Bisacodyl (Bisacodyl 5 Mg Tab) 10 mg PO ONETIME ONE Stop: 11/09/20 10:38 Last Admin: 11/09/20 11:16 Dose: 10 mg Documented by: Calcium Carbonate/Glycine (Calcium Carbonate 500 Mg Tab.Chew) 500 mg PO Q2HR PRN PRN Reason: Indigestion Dexamethasone (Dexamethasone 10 Mg/Ml Sdv) 6 mg IVPUSH ONETIME ONE Stop: 11/07/20 12:22 Last Admin: 11/07/20 12:31 Dose: 6 mg Documented by: Diltiazem HCl (Diltiazem 25 Mg/5 Ml Sdv) 20 mg IVPUSH ONETIME ONE Stop: 11/07/20 09:43 Last Admin: 11/07/20 10:04 Dose: 20 mg Documented by: Diltiazem HCl (Diltiazem 25 Mg/5 Ml Sdv) 5 mg IVPUSH ONETIME ONE Stop: 11/07/20 11:33 Last Admin: 11/07/20 11:39 Dose: 5 mg Documented by: Diltiazem HCl (Diltiazem 180 Mg Cap.Cd) 180 mg PO ONETIME ONE Stop: 11/07/20 12:41 Last Admin: 11/07/20 19:23 Dose: Not Given Documented by: Diltiazem HCl (Diltiazem Ir 30 Mg Tab) 30 mg PO Q6HR [facility] Last Admin: 11/07/20 14:40 Dose: 30 mg Documented by: Diltiazem HCl (Diltiazem Ir 30 Mg Tab) 30 mg PO Q6H [facility] Last Admin: 11/08/20 01:08 Dose: 30 mg Documented by: Diltiazem HCl (Diltiazem 120 Mg Cap.Cd) 120 mg PO DAILY [facility] Last Admin: 11/08/20 08:30 Dose: 120 mg Documented by: Diltiazem HCl (Diltiazem Ir 30 Mg Tab) 15 mg PO ONETIME ONE Stop: 11/08/20 14:14 Last Admin: 11/08/20 14:23 Dose: 15 mg Documented by: Diltiazem HCl (Diltiazem 25 Mg/5 Ml Sdv) 10 mg IVPUSH ONETIME ONE Stop: 11/08/20 15:25 Last Admin: 11/08/20 15:36 Dose: 10 mg Documented by: Diltiazem HCl (Diltiazem 180 Mg Cap.Cd) 180 mg PO DAILY [facility]ICKI Last Admin: 11/09/20 08:42 Dose: 180 mg Documented by: Diltiazem HCl (Diltiazem 25 Mg/5 Ml Sdv) 10 mg IVPUSH ONETIME ONE Stop: 11/09/20 09:11 Last Admin: 11/09/20 09:26 Dose: 10 mg Documented by: Diltiazem HCl (Diltiazem 120 Mg Cap.Cd) 120 mg PO ONETIME ONE Stop: 11/09/20 09:26 Last Admin: 11/09/20 11:16 Dose: 120 mg Documented by: Guaifenesin/Codeine Phosphate (Codeine/Guaifenesin 10-100 Mg/5 Ml Syrup 5 Ml Cup) 10 ml PO Q6H PRN PRN Reason: Cough Last Admin: 11/08/20 05:53 Dose: 10 ml Documented by: Sodium Chloride (Normal Saline) 1,000 mls @ 999 mls/hr IV .Bolus ONE Stop: 11/07/20 10:41 Last Admin: 11/07/20 10:04 Dose: 999 mls/hr Documented by: Diltiazem HCl 100 mg/ Sodium (Chloride) 100 mls @ 5 mls/hr IV NOW MICKI; Protocol Last Titration: 11/07/20 14:42 Dose: 0 mg/hr, 0 mls/hr Documented by: Sodium Chloride (Normal Saline) Confirm Administered Dose 100 mls @ as directed .ROUTE .STK-MED ONE Stop: 11/07/20 10:24 Last Admin: 11/07/20 11:17 Dose: Not Given Documented by: Sodium Chloride (Normal Saline) Confirm Administered Dose 100 mls @ as directed .ROUTE .STK-MED ONE Stop: 11/07/20 10:28 Last Admin: 11/07/20 11:17 Dose: Not Given Documented by: Sodium Chloride (Normal Saline) 500 mls @ 175 mls/hr IV ONETIME ONE Stop: 11/09/20 13:19 Last Admin: 11/09/20 10:43 Dose: 175 mls/hr Documented by: Iopamidol (Iopamidol 755 Mg/Ml 500 Ml Multipack Bottle) 100 ml IVPUSH ONETIME STA Stop: 11/07/20 13:18 Last Admin: 11/07/20 13:19 Dose: 100 ml Documented by: Morphine Sulfate (Morphine 4 Mg/Ml Syringe) 4 mg IVPUSH ONETIME ONE Stop: 11/07/20 09:50 Last Admin: 11/07/20 10:01 Dose: 4 mg Documented by: Morphine Sulfate (Morphine 2 Mg/Ml Syringe) 1 mg IVPUSH ONETIME ONE Stop: 11/07/20 23:33 Last Admin: 11/08/20 01:09 Dose: 1 mg Documented by: Oxycodone/Acetaminophen (Acetaminophen/Oxycodone 325-5 Mg Tab) 1 tab PO ONETIME ONE Stop: 11/07/20 13:00 Last Admin: 11/07/20 13:03 Dose: 1 tab Documented by: Sodium Chloride (Sodium Chloride 0.9% 10 Ml Syringe) 10 ml FLUSH ASDIRECTED PRN PRN Reason: Keep Vein Open Last Admin: 11/07/20 10:04 Dose: 10 ml Documented by: Sodium Chloride (Sodium Chloride 0.9% 2.5 Ml Syringe) 2.5 ml FLUSH ASDIRECTED PRN PRN Reason: Keep Vein Open Last Admin: 11/07/20 10:04 Dose: 2.5 ml Documented by: Trazodone HCl (Trazodone 50 Mg Tab) 50 mg PO ONETIME ONE Stop: 11/10/20 01:14 Last Admin: 11/10/20 01:34 Dose: 50 mg Documented by:
[2020-11-11] MEDS: Aspirin 81 MG Tab.Chew PO SCH (08:36)
[2020-11-11] MEDS: Benzonatate 100 MG Cap PO PRN (08:37)
[2020-11-11] MEDS: Dexamethasone 4 MG Tab PO SCH (08:38)
[2020-11-11] MEDS: Diltiazem 120 MG Cap.CD PO SCH (08:42)
== END 2020-11-11 09:30 | disposition home or self-care (01) | DRG 193 ==
LOC: MW.ED 09:27 → MW.ICU 12:20 → OBSVTOIN 11-09 09:24 → MW.MS 11-09 17:28
PROVIDERS: ADMIT Internal Medicine; ATTEND Internal Medicine
DX: J12.9 Viral pneumonia, unspecified (principal); J96.01 Acute respiratory failure with hypoxia; B94.8 Sequelae of other specified infectious and parasitic diseases; I48.91 Unspecified atrial fibrillation; Z79.82 Long term (current) use of aspirin; Z79.899 Other long term (current) drug therapy
CPT/HCPCS: 36415; 71045; 71045-26; 71275; 71275-26; 80048; 80053; 83605; 83735; 83880; 84443; 84484; 85025; 85379; 85610; 85730; 87040; 93005; 94667; 99291; A9270-GY; J0696; J1100; J1650; J2270; J3490; J7030; J7040; J8540; Q9967

== ENCOUNTER 2021-03-23 01:50 | Emergency (ER) | payer OTHER ==
[2021-03-23] MEDS ORDERED: Sodium Chloride 0.9% 10 ML Syringe FLUSH PRN (02:10)
[2021-03-23] MEDS ORDERED: Sodium Chloride 0.9% 1,000 ML IV ONE (02:10)
[2021-03-23] MEDS ORDERED: Sodium Chloride 0.9% 2.5 ML Syringe FLUSH PRN (02:10)
[2021-03-23] MEDS ORDERED: LORazepam 2 MG/ML SDV IVPUSH ONE (02:10)
[2021-03-23 02:35] LABS: BLOOD UREA NITROGEN,BUN 14 mg/dL (7.0-18.0); CARBON DIOXIDE,CO2 28.3 mmol/L (21.0-32.0); CHLORIDE,CL 102 mmol/L (98-107); GLUCOSE RANDOM 109 mg/dL (74-106); POTASSIUM,K 3.8 mmol/L (3.5-5.1); SODIUM,NA 140 mmol/L (136-148)
--- NOTE | 2021-03-23 03:16 | CR ---
INDICATION: Chest pain TECHNIQUE: Two view chest. FINDINGS: The lungs are clear. The heart, mediastinum and pulmonary vessels are of normal size. There is no evidence of pleural disease. IMPRESSION: Negative chest. Dictated by Cristal Kennedy MD @ 03/23/2021 3:13:[address] Cristal Kennedy @ Mar 23 2021 3:13AM
--- NOTE | 2021-03-23 03:36 | EDM.PDOC ---
ED HPI GENERAL MEDICAL PROBLEM - General Chief Complaint: Cardiovascular Problem Stated Complaint: IRREGULAR HEARTBEAT Time Seen by Provider: 03/23/21 01:50 - History of Present Illness INITIAL COMMENTS - FREE TEXT/NARRATIVE: HISTORY AND PHYSICAL: History of present illness: Is a 40-year-old gentleman who presents to the ER today secondary to palpitations in his chest and noticing on his apple watch that his heart rate had gone up to 144 bpm. Patient reports that in October of this year he was diagnosed with his COVID-19 and during that episode he was noted to have episodes of atrial fibrillation. Patient was rate controlled while in the hospital and was started on diltiazem while here in [place]. After his hospitalization, the patient was to follow-up with Dr. Malhotra however his family drove him to [place] where he is from to see a umbrella mender. While he was down to see the umbrella mender the umbrella mender reported that he has intermittent atrial fibrillation and no further work-up was done. Patient reports that throughout the course of the last several month his Apple Watch has documented that he has had warnings of atrial fibrillation but usually it has not been rapid and he has been asymptomatic. Patient presents ER today with he had episodes of palpitations in his chest when he looked at his apple watch he had one episode of rate of 144 and the remainder of his documented episodes on his watch were were under 100. Patient denies any recent fevers, shakes, chills, nausea, vomiting, diarrhea, dysuria, frequency, urgency. Patient denies any chest pain or pressure does report he feels like his heart is pounding. Patient denies any increased stress or anxiety in his life. Patient denies any stimulant use. Patient denies any excessive caffeine, soda, chocolates, [id number] medications/stimulants such as Sudafed. Patient denies any drug use. Patient denies any shortness of breath or diaphoresis. Patient has any calf tenderness. Patient has any hemoptysis. The remainder the patient's review of systems is essentially been normal. Review of systems: As per history of present illness and below otherwise all systems reviewed and negative. Past medical history: As per history of present illness and as reviewed below otherwise noncontributory. Surgical history: As per history of present illness and as reviewed below otherwise noncontributory. Social history: No reported history of drug abuse. Family history: As per history of present illness and as reviewed below otherwise noncontributory. Physical exam: This patient was seen and evaluated during the 2019 SARS-CoV-2 novel coronavirus pandemic period. Community viral transmission is ongoing at time of this encounter and the emergency department is operating under pandemic response procedures. Constitutional: Patient is oriented to person, place, and time. Appears well- developed and well-nourished. No distress. HEENT: Moist mucous membranes Head: Normocephalic and atraumatic Eyes: Right eye exhibits no discharge. Left eye exhibits no discharge. No scleral icterus Neck: Normal range of motion. No tracheal deviation present. Cardiovascular: Irregularly irregular rhythm with a heart rate of 70 to 90 bpm Pulmonary: Effort normal, no respiratory distress. Abdominal: No distention Musculoskeletal: Normal range of motion Neurologic: Alert and oriented to person, place and time. Skin: [place], warm and dry. Psychiatric: Normal mood and affect. Behavior is normal. Judgment and thought content normal. Nursing note and vital signs have been reviewed Diagnostics: EKG date March 23, 2021 at 1:48 AM EKG: As interpreted by ER physician: Kamila: Nonspecific ST-T wave abnormalities Normal axis No evidence of ST elevation ND Atrial fibrillation with a heart rate of 84 CBC, CMP, TSH, within normal limits Therapeutics: NSS x1 L Ativan 0.5 mg IV Assessment and plan: This is a 40-year-old gentleman who presents ER today secondary to palpitations and was noted to be in atrial fibrillation. Patient does have a history of atrial fibrillation and has been seen by cardiology. Patient is currently on diltiazem. Patient was concerned because his Apple Watch noted a heart rate of 144 earlier today. Upon arrival to the ED the patient's heart rate has been in the 70 bpm to 90 bpm range. Patient's EKG does not reveal any ischemia any other pathology. Patient has has seen a umbrella mender however he was in [place] in his hometown. I believe patient will need to be seen by cardiology here to obtain a full outpatient work-up including an echocardiogram. I have discussed with the patient the possible need for long-term anticoagulation. He reports that this was discussed with him with his umbrella mender at [place] and they had opted to not start anticoagulation. At this time, patient will wait until he is seen by our umbrella mender here in [place]. We will assist with arranging follow-up and will send his information to Dr. Malhotra's office and will give him his phone number to call to make an appointment. Patient will be instructed to continue taking his diltiazem as he has been. Reassessment at the time of disposition demonstrates that the patient is in no acute distress. The patient has remained stable throughout the entire ED visit and is without objective evidence for acute process requiring urgent intervention or hospitalization. The patient is stable for discharge, counseling is provided as documented above, discussed symptomatic treatment and specific conditions for return. I have spoken with the patient/caregiver and discussed todays findings, in addition to providing specific details for the plan of care. Questions are answered and there is agreement with the plan. Definitive disposition and diagnosis as appropriate pending reevaluation and review of above. chest area Pain Score (Numeric/FACES): 3 - Related Data Allergies Allergy/AdvReac Type Severity Reaction Status Date / Time No Known Allergies Allergy Verified 03/23/21 02:00 Home Meds: Home Meds Diltiazem [Cardizem CD] 240 mg PO DAILY 03/23/21 [History] Past Medical History - Past Health History Medical/Surgical History: Denies Medical/Surgical History HEENT History: Reports: None Cardiovascular History: Reports: Afib Respiratory History: Reports: Pneumonia, Recurrent Other Respiratory History: Hx Covid pneumonia 10/21/20 w/ Remdesivir treatment x 5 days Gastrointestinal History: Reports: None Genitourinary History: Reports: None Musculoskeletal History: Reports: None Neurological History: Reports: None Psychiatric History: Reports: None Endocrine/Metabolic History: Reports: None Insulin Pump Model and Lockstitch Collar Setter: None Hematologic History: Reports: None Immunologic History: Reports: None Oncologic (Cancer) History: Reports: None Dermatologic History: Reports: None - Infectious Disease History Infectious Disease History: Reports: Novel Coronavirus - Past Surgical History Head Surgeries/Procedures: Reports: None Cardiovascular Surgical History: Reports: None Dermatological Surgical History: Reports: None Social & Family History - Family History Family Medical History: No Pertinent Family History - Caffeine Use Caffeine Use: Reports: None - Recreational Drug Use Recreational Drug Use: No ED ROS GENERAL - Review of Systems Review Of Systems: See Below ED EXAM, GENERAL - Physical Exam Exam: See Below Course - Vital Signs Last Recorded V/S: Last Vital Signs Temp 97.5 F 03/23/21 01:50 Pulse 78 03/23/21 03:02 Resp 18 03/23/21 03:02 BP 117/77 03/23/21 03:02 Pulse Ox 95 03/23/21 03:02 - Orders/Labs/Meds Orders: Active Orders 24 hr Category Date Time Status EKG Documentation Completion [RC] AM Care 03/23/21 02:10 Ordered Sodium Chloride 0.9% [Saline Flush] Med 03/23/21 02:10 Ordered 10 ml FLUSH ASDIRECTED PRN Sodium Chloride 0.9% [Saline Flush] Med 03/23/21 02:10 Ordered 2.5 ml FLUSH ASDIRECTED PRN Saline Lock Insert [OM.PC] Stat Oth 03/23/21 02:10 Ordered Medication Orders Sodium Chloride (Sodium Chloride 0.9% 10 Ml Syringe) 10 ml FLUSH ASDIRECTED PRN PRN Reason: Keep Vein Open Sodium Chloride (Sodium Chloride 0.9% 2.5 Ml Syringe) 2.5 ml FLUSH ASDIRECTED PRN PRN Reason: Keep Vein Open Labs: Laboratory Tests 03/23/21 03/23/21 Range/Units 01:56 01:56 WBC 7.15 (4.0-11.0) K/uL RBC 5.86 (4.50-5.90) M/uL Hgb 17.6 H (13.0-17.0) g/dL Hct 50.1 H (38.0-50.0) % MCV 85.5 (80.0-98.0) fL MCH 30.0 (27.0-32.0) pg MCHC 35.1 (31.0-37.0) g/dL RDW Std Deviation 38.4 (28.0-62.0) fl RDW Coeff of Carolyn 12 (11.0-15.0) % Plt Count 252 (150-400) K/uL MPV 10.80 (7.40-12.00) fL Neut % (Auto) 33.1 L (48.0-80.0) % Lymph % (Auto) 53.6 H (16.0-40.0) % [place] % (Auto) 9.4 (0.0-15.0) % Eos % (Auto) 3.5 (0.0-7.0) % Baso % (Auto) 0.4 (0.0-1.5) % Neut # (Auto) 2.4 (1.4-5.7) K/uL Lymph # (Auto) 3.8 H (0.6-2.4) K/uL [place] # (Auto) 0.7 (0.0-0.8) K/uL Eos # (Auto) 0.3 (0.0-0.7) K/uL Baso # (Auto) 0.0 (0.0-0.1) K/uL Nucleated RBC % 0.0 /100WBC Nucleated RBCs # 0 K/uL Sodium 140 (136-148) mmol/L Potassium 3.8 (3.5-5.1) mmol/L Chloride 102 (98-107) mmol/L Carbon Dioxide 28.3 (21.0-32.0) mmol/L BUN 14 (7.0-18.0) mg/dL Creatinine 1.2 (0.8-1.3) mg/dL Est Cr Clr Drug Dosing 88.92 mL/min Estimated GFR (MDRD) > 60.0 ml/min Glucose 109 H (74-106) mg/dL Calcium 8.6 (8.5-10.1) mg/dL Magnesium 2.2 (1.8-2.4) mg/dL Total Bilirubin 0.3 (0.2-1.0) mg/dL AST 18 (15-37) IU/L ALT 52 (14-63) IU/L Alkaline Phosphatase 106 (46-116) U/L Total Protein 7.4 (6.4-8.2) g/dL Albumin 4.3 (3.4-5.0) g/dL Globulin 3.1 (2.6-4.0) g/dL Albumin/Globulin Ratio 1.4 (0.9-1.6) TSH, Ultra Sensitive 3.55 (0.36-3.74) uIU/mL Meds: Medications Generic Name Dose Route Start Last Admin Trade Name Freq PRN Reason Stop Dose Admin Sodium Chloride 10 ml 03/23/21 02:10 Sodium Chloride 0.9% 10 Ml Syringe FLUSH ASDIRECTED PRN Keep Vein Open Sodium Chloride 2.5 ml 03/23/21 02:10 Sodium Chloride 0.9% 2.5 Ml Syringe FLUSH ASDIRECTED PRN Keep Vein Open Discontinued Medications Generic Name Dose Route Start Last Admin Trade Name Bob PRN Reason Stop Dose Admin Sodium Chloride 1,000 mls @ 999 mls/hr 03/23/21 02:10 03/23/21 02:18 Normal Saline IV 03/23/21 03:10 999 mls/hr .Bolus ONE Administration Lorazepam 0.5 mg 03/23/21 02:10 03/23/21 02:18 Lorazepam 2 Mg/Ml Sdv IVPUSH 03/23/21 02:11 0.5 mg ONETIME ONE Administration Departure - Departure Time of Disposition: 03:36 Disposition: Home, Self-Care 01 Condition: Good Clinical Impression: Atrial fibrillation with controlled ventricular rate, Palpitation Instructions: Atrial Fibrillation, Palpitations Additional Instructions: You were seen and evaluated in ER today secondary to palpitations and an elevated heart rate. Your EKG here shows that you are in atrial fibrillation but you have been rate controlled with heart rate under 100 throughout your ER visit. Your blood tests and chest x-rays have all been within normal limits. You will need to follow-up with Dr. Malhotra our umbrella mender so that that he can further assess your atrial fibrillation and the need for any new medications and any new studies that you might need. Please continue taking your diltiazem. Please avoid any stimulants, caffeine, or excessive stress. The following information is given to patients seen in the emergency department who are being discharged to home. This information is to outline your options for follow-up care. We provide all patients seen in our emergency department with a follow-up referral. The need for follow-up, as well as the timing and circumstances, are variable depending upon the specifics of your emergency department visit. If you don't have a primary care physician on staff, we will provide you with a referral. We always advise you to contact your personal physician following an emergency department visit to inform them of the circumstance of the visit and for follow-up with them and/or the need for any referrals to a consulting specialist. The emergency department will also refer you to a specialist when appropriate. This referral assures that you have the opportunity for follow-up care with a specialist. All of these measure are taken in an effort to provide you with optimal care, which includes your follow-up. Under all circumstances we always encourage you to contact your private physician who remains a resource for coordinating your care. When calling for follow-up care, please make the office aware that this follow-up is from your recent emergency room visit. If for any reason you are refused follow-up, please contact the [facility] Emergency Department at and asked to speak to the emergency department charge nurse. [facility] - Primary [facility] [address], [place] [address] [facility] [address] [place] [id number] Sepsis Event Note (ED) - Focused Exam Vital Signs: Vital Signs Temp Pulse Resp BP Pulse Ox 03/23/21 03:02 78 18 117/77 95 03/23/21 01:50 97.5 F 90 18 111/85 97 - My Orders Last 24 Hours: My Active Orders 03/23/21 02:10 EKG Documentation Completion [RC] AM Sodium Chloride 0.9% [Saline Flush] 10 ml FLUSH ASDIRECTED PRN Sodium Chloride 0.9% [Saline Flush] 2.5 ml FLUSH ASDIRECTED PRN Saline Lock Insert [OM.PC] Stat - Assessment/Plan Last 24 Hours: My Active Orders 03/23/21 02:10 EKG Documentation Completion [RC] AM Sodium Chloride 0.9% [Saline Flush] 10 ml FLUSH ASDIRECTED PRN Sodium Chloride 0.9% [Saline Flush] 2.5 ml FLUSH ASDIRECTED PRN Saline Lock Insert [OM.PC] Stat
== END 2021-03-23 03:45 | disposition home or self-care (01) ==
LOC: MW.ED 01:50
DX: I48.91 Unspecified atrial fibrillation (principal); J18.9 Pneumonia, unspecified organism; Z79.899 Other long term (current) drug therapy
CPT/HCPCS: 36415; 71046; 80053; 83735; 84443; 85025; 93005; 96374; 99285; J2060; J7030

== ENCOUNTER 2022-02-05 09:41 | Inpatient (IN) | payer BC ==
[2022-02-05] MEDS ORDERED: Sodium Chloride 0.9% 2.5 ML Syringe FLUSH PRN (09:58)
[2022-02-05] MEDS ORDERED: Sodium Chloride 0.9% 1,000 ML IV ONE ×2 (09:58→11:31)
[2022-02-05] MEDS ORDERED: Sodium Chloride 0.9% 10 ML Syringe FLUSH PRN (09:58)
[2022-02-05 11:00] LABS: CARBON DIOXIDE,CO2 27.6 mmol/L (21.0-32.0); POTASSIUM,K 4.2 mmol/L (3.5-5.1)
[2022-02-05] MEDS ORDERED: Diltiazem 50 MG/10 ML SDV IVPUSH ONE (11:06)
[2022-02-05] MEDS ORDERED: Diltiazem 120 MG Cap.CD PO ONE (12:05)
[2022-02-05] MEDS ORDERED: Diltiazem 100 MG in Sodium Chloride 0.9% 100 ML IV SCH (13:45)
[2022-02-05] MEDS: Diltiazem IR 30 MG Tab PO SCH ×2 (18:49→23:26)
[2022-02-06] MEDS: Diltiazem IR 30 MG Tab PO SCH ×2 (05:43→12:15)
[2022-02-06 07:03] LABS: CARBON DIOXIDE,CO2 25.6 mmol/L (21.0-32.0)
[2022-02-06] MEDS ORDERED: Aspirin 81 MG Tab.Chew PO SCH (09:00)
[2022-02-06] MEDS ORDERED: Apixaban 5 MG Tab PO SCH (09:00)
[2022-02-06] MEDS ORDERED: DRONEDARONE HCL 400 MG PO SCH (09:00)
[2022-02-06] MEDS: Flecainide 100 MG Tab PO SCH (20:56)
[2022-02-06] MEDS ORDERED: Flecainide 100 MG Tab PO SCH (21:00)
[2022-02-07 06:13] LABS: CARBON DIOXIDE,CO2 29.1 mmol/L (21.0-32.0); POTASSIUM,K 4.1 mmol/L (3.5-5.1)
[2022-02-07] MEDS ORDERED: Aspirin 81 MG Tab.EC PO SCH (09:00)
[2022-02-07] MEDS: Flecainide 100 MG Tab PO SCH (09:22)
== END 2022-02-07 10:15 | disposition home or self-care (01) | DRG 201 ==
LOC: MW.ED 09:41 → MW.ICU 13:53
PROVIDERS: ADMIT Internal Medicine; ATTEND Internal Medicine
DX: I48.0 Paroxysmal atrial fibrillation (principal); F90.9 Attention-deficit hyperactivity disorder, unspecified type; Z20.822 Contact with and (suspected) exposure to COVID-19; Z86.16 Personal history of COVID-19; Z87.01 Personal history of pneumonia (recurrent)
CPT/HCPCS: 36415; 71045; 71045-26; 80048; 80053; 83735; 84443; 85025; 93005; 93010; 96361; 96374; 99221; 99231; 99238; 99284; 99285-25; A9270-GY; J3490; J7030; U0002

== ENCOUNTER 2022-05-06 23:20 | Emergency (ER) | payer BC ==
[2022-05-07 01:05] LABS: CARBON DIOXIDE,CO2 27.6 mmol/L (21.0-32.0); POTASSIUM,K 3.7 mmol/L (3.5-5.1)
== END 2022-05-07 02:00 | disposition home or self-care (01) ==
LOC: MW.ED 23:20
DX: I48.92 Unspecified atrial flutter (principal); I48.91 Unspecified atrial fibrillation; Z79.82 Long term (current) use of aspirin; Z86.16 Personal history of COVID-19
CPT/HCPCS: 36415; 71045; 71045-26; 80053; 83735; 83880; 84439; 84443; 84484; 85025; 93010; 99283; 99285

== ENCOUNTER 2022-08-07 06:32 | Day surgery (SDC) | payer BC ==
[~2022-08-07 06:32] MED LIST: Lactated Ringers 1,000 ML IV SCH; Sodium Chloride 0.9% 10 ML Syringe FLUSH PRN; Sodium Chloride 0.9% 2.5 ML Syringe FLUSH PRN; Sodium Chloride 0.9% 20 ML SDV IV PRN; ceFAZolin 2 GM in Premix Bag 1 BAG IV ONE
[2022-08-07] MEDS ORDERED: Naloxone 0.4 MG/ML SDV IVPUSH PRN (06:58)
[2022-08-07] MEDS ORDERED: Albuterol 0.083% 2.5 MG/3 ML Neb Soln NEB PRN (06:58)
[2022-08-07] MEDS ORDERED: HYDROmorphone 1 MG/ML Syringe IVPUSH PRN (06:58)
[2022-08-07] MEDS ORDERED: Metoclopramide 10 MG/2 ML SDV IVPUSH PRN (06:58)
[2022-08-07] MEDS ORDERED: fentaNYL 50 MCG/ML SDV IVPUSH PRN (06:58)
[2022-08-07] MEDS ORDERED: Ondansetron 4 MG/2 ML SDV IVPUSH PRN (06:58)
[2022-08-07] MEDS ORDERED: Morphine 2 MG/ML SYRINGE IVPUSH PRN (06:58)
[2022-08-07] MEDS ORDERED: Ropivacaine 0.5% 5 MG/ML 30 ML SDV ONE (07:22)
[2022-08-07] MEDS ORDERED: Famotidine 20 MG/2 ML SDV ONE (07:22)
[2022-08-07] MEDS ORDERED: Bupivacaine 0.5% 30 ML SDV ONE (07:26)
[2022-08-07] MEDS ORDERED: fentaNYL 100 MCG/2 ML SDV ONE ×3 (07:31→08:38)
[2022-08-07] MEDS ORDERED: Propofol 200 MG/20 ML SDV ONE ×3 (07:36→09:24)
[2022-08-07] MEDS ORDERED: Lidocaine 2% 11 ML Jelly Filled Syringe ONE (08:04)
[2022-08-07] MEDS ORDERED: ePHEDrine 50 MG/ML SDV ONE (09:41)
[2022-08-07] MEDS ORDERED: Sugammadex Sodium 200 MG/2 ML VIAL ONE (09:41)
[2022-08-07] MEDS ORDERED: Ondansetron 4 MG/2 ML SDV ONE (09:41)
[2022-08-07] MEDS ORDERED: Dexamethasone 4 MG/ML 5 ML MDV ONE (09:41)
[2022-08-07] MEDS ORDERED: ceFAZolin 2 GM Vial ONE (09:42)
[2022-08-07] MEDS ORDERED: Glycopyrrolate 0.2 MG/ML SDV ONE (10:12)
== END 2022-08-07 12:29 | disposition home or self-care (01) ==
LOC: MW.SDS 06:32
PROVIDERS: ATTEND Surgery
DX: K40.90 Unilateral inguinal hernia, without obstruction or gangrene, not specified as recurrent (principal); I48.91 Unspecified atrial fibrillation; E29.1 Testicular hypofunction; G47.33 Obstructive sleep apnea (adult) (pediatric); Z79.899 Other long term (current) drug therapy; Z79.82 Long term (current) use of aspirin; Z98.890 Other specified postprocedural states; Z91.011 Allergy to milk products; Z86.16 Personal history of COVID-19
CPT/HCPCS: 49505; A9270; J0131; J0690; J1100; J2405; J2704; J2795; J3010; J3490; J7120